=== PATIENT | male | born 1960 | race Caucasian/White ===

== ENCOUNTER 2021-11-17 18:13 | Inpatient (IN) | payer MEDICARE, SELFPAY ==
[2021-11-17] VITALS (26 sets, daily range): BP systolic 67–156; BP diastolic 37–80; PULSE 28–84; RESP 15–28; TEMP 36.5–36.8; O2SAT 79–100; BMI 47.2
--- NOTE | 2021-11-17 18:10 | ECG_ITS ---
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 Measurements Intervals [place] Rate: 50 P: 48 MN: 191 QRS: -23 QRSD: 100 T: 52 QT: 438 QTc: 402 Interpretive Statements SINUS BRADYCARDIA INDETERMINATE AXIS LOW QRS VOLTAGE IN PRECORDIAL LEADS [QRS DEFLECTION < 1.0 mV IN CHEST LEADS] PATTERN CONSISTENT WITH PULMONARY DISEASE Compared to ECG 11/17/2021 18:16:53 Indeterminate axis now present Low QRS voltage now present First degree AV block no longer present Right-axis deviation no longer present Right bundle-branch block no longer present Electronically Signed On 11-18-2021 16:28:08 CDT by Bakari Wynne M.D. [id number]
--- NOTE | 2021-11-17 18:33 | P.HP_ITS ---
Providers/Chief Complaint Admitting Physician: Feng rAtis MD History of Present Illness Byron Reilly is a 61 year old male with a past medical history of SVT, on sotalol chronic low back pain, status post surgery, spinal stenosis, on Celebrex, bilateral extremity edema on Lasix, recently metolazone was added, acute on chronic constipation, hypertension, hyperlipidemia, type 2 diabetes mellitus, no history of CAD, no history of stroke, he has a history of necrotizing fasciitis a year ago requiring debridement, no history of COVID-19, no recent history of infection, patient is from [facility], he tells me that for the last week he has been constipated, has been using [id number] milk of mag, MiraLAX to help with his constipation, but has not had a regular soft bowel movement, he has been developing bilateral lower extremity edema, fluid-filled blisters so he was on Lasix, and his primary care provider had added metolazone recently, he has been taking it regularly, denies taking any other medications, he does take Celebrex regularly for multiple joint pains, lower back pain which he takes regularly, denies any dehydration, no nausea, vomiting, lightheadedness, tells me that he hydrates well, does have bile extremity edema, no fevers, no chills, no cough, no drug use, no alcohol use. In the emergency room [facility], he was found to have a potassium of 9.2, serum sodium 128, creatinine 5.4, chloride 97, CO2 23, blood sugar level 237, BUN 96, anion gap 17, troponin less than 0.012, INR 1, hemoglobin 11.8, at that point he had received Kayexalate, I was called by ER provider, advised to give 10 units insulin, calcium gluconate, D50, and recheck potassium levels, recheck potassium levels 8.7, chloride 97, serum sodium 127, creatinine 5.4, BUN 96, EKG showed sinus bradycardia, first- degree AV bloc upon arrival, he is alert oriented x3, following all commands, normotensive, EKG showing sinus bradycardia with first-degree AV block, right axis deviation, right bundle branch block, does show peaked T waves, flattening of T waves, QRS prolongation, is at bedside. Denies chest pain, no palpitations, no shortness of breath, I have advised nurses to give him 10 units of insulin, 1 unit of D50, 2 g calcium gluconate, I have already talked to nephrology, they are seeing patient at bedside, I have also discussed with general surgery, for urgent dialysis and dialysis catheter placement for orders severe symptomatic hyperkalemia with EKG changes. 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 Patient is full code. I have also ordered repeat blood work to be ordered stat. No history of sleep apnea, review of his ABG shows a pH of 7.086, PCO2 70, PO2 70.6, no of COPD, will put on BiPAP, repeat ABG in the morning, Review of Systems Const: Denies: fever(s) Card: Reports: swelling of feet/ankles and lightheadedness; Denies: chest pain or palpitations Resp: Reports: dyspnea; Denies: productive cough GI: Reports: abdominal pain : Denies: difficulty urinating Musc: Reports: back pain PFSH Acute PFSH: Medical History (Updated 11/17/21 @ 18:46 by Feng Artis MD) Chronic narcotic dependence History of back pain History of hyperlipidemia History of necrotizing fasciitis History of obesity History of paroxysmal supraventricular tachycardia History of type 2 diabetes mellitus HTN (hypertension) with goal to be determined Surgical History (Updated 11/17/21 @ 18:41 by Feng Artis MD) History of back surgery Family History (Updated 11/17/21 @ 18:44 by Feng Artis MD) Father Diabetes Social History (Updated 11/17/21 @ 18:41 by Feng Artis MD) Smoking and tobacco status: former smoker Alcohol intake: never Substance/Drug Use: never Vitals/I&O/Wt Last Vital Signs Pulse 43 L 11/17/21 18:12 Physical Exam Const: COMMON NORMALS: no acute distress and patient oriented x3 HENMT: COMMON NORMALS: normocephalic HEAD & SCALP: normocephalic Eye: COMMON NORMALS: Equal, round and reactive pupils present and EOMs intact bilaterally Neck/C-Spine: COMMON NORMALS: no JVD Resp: COMMON NORMALS: normal respiratory effort, No retractions, No use of accessory muscles and clear to auscultation bilaterally AUSCULTATION: clear to auscultation bilaterally Cardio: COMMON NORMALS: no JVD, regular rate, regular rhythm, S1 normal heart sound present and S2 normal heart sound present RATE: regular rate RHYTHM: regular rhythm HEART SOUNDS: S1 normal heart sound present and S2 normal heart sound present GI: COMMON NORMALS: Normal to inspection, nondistended, normoactive bowel sounds present, Soft to palpation, non-tender, No hepatosplenomegaly present, no masses and no bruits PALPATION: Yes Soft to palpation and Yes No hepatosplenomegaly present Extremity: COMMON NORMALS: capillary refill normal, no clubbing, cyanosis or edema and no calf tenderness NARRATIVE EXTREMITY EXAM: 2+ pitting edema bilateral extremity Neuro: COMMON NORMALS: patient oriented x3 Psych: COMMON NORMALS: mental status grossly normal Urinary Catheter Management: Leone: Cath Placed During This Visit: yes Urinary Catheter Date of Insertion: 11/17/21 Urinary Catheter Time of Insertion: 18:15 A&P Assessment and plan (1) Acute hyperkalemia: Status: Acute (2) Hypercarbia: Status: Acute (3) Acute renal failure: Status: Acute (4) Constipation: Status: Acute Plan Acute hyperkalemia with acute renal failure -Likely secondary to Celebrex, Lasix, metolazone, dehydration, possibly mag citrate, yet with some -With acute EKG changes -Urine studies -Not responding to albuterol, calcium gluconate, insulin, D50, Kayexalate -Place Leone catheter monitor urine output -Requiring urgent dialysis -Nephrology on consult -General surgery on consult, n.p.o., dialysis catheter to be placed this evening -Continue telemetry monitoring -We will receive calcium gluconate, 1 amp of D50, 10 units IV push insulin -Cardiac echo, venous ultrasound, renal ultrasound -For severe constipation CT scan abdomen pelvis, x-ray outside facility showed ileus, possibly secondary to diuretics sinus bradycardia, with flattening of T waves, QRS prolongation, peaked T waves, second hyperkalemia, calcium gluconate x2 Hypercarbia, likely secondary to decreased mentation, obstructive sleep apnea, underlying COPD -DuoNeb treatments -BiPAP therapy -Repeat ABG in 3 hours Serial EKGs, serial troponins, cardiac echo Bilateral extremity edema, venous ultrasound, cardiac echo Full code, Protonix for GI prophylaxis, SCDs for DVT prophylaxis, Lovenox on hold and plans for surgical intervention Attestations Medical Necessity Statement*: Patient requires hospitalization, inpatient, greater than 2 midnights, for hyperkalemia, with EKG changes, acute renal failure, hypercarbia, acidosis, critical care time spent over 50 minutes Coding Level of Care Code 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
--- NOTE | 2021-11-17 18:37 | PM.CONSULT ---
Providers/Reason For Consult Consulting Physician/Specialty*: netta almeida md / telenephrology Reason for Consult*: ESMER, hyperkalemia Requesting Physician: Dr Feng Artis Attending Physician: Feng Artis MD History of Present Illness History of Present Illness Byron Reilly is a 61 year old male h/o obesity, chf, back pain, dm, necrotizing fascitis, and arrythmia. Pt has been c/o back pain on celebrex and hydrocone. he is on lasix, aldactone, and hctz for CHF- and had dose of water pills inc 1 mo ago. he has had constipation and taking miralax and other laxitives. Pt has been weaker recently. couldnt walk and today had AMS and collapsed and called 911- brought to [place], [place]- found to have hyperkalemia and ESMER. cr over 5 and k >8. Pt is bradycaric. His hyperkalemia has been treated medically and transferred to [facility] ICU for dialysis. Renal is called to consult. Review of Systems Narrative: weak, confused, shakes, tremors, oliguric, constipation, anasarca, poor appetite, SOB. Pt quit smoking 4 weeks ago Medications/Allergies home meds include celebrex, gabapentin, lasix, hctz, sotalol, miralax PFSH Acute PFSH: Medical History (Updated 11/17/21 @ 18:46 by Feng Artis MD) Chronic narcotic dependence History of back pain History of hyperlipidemia History of necrotizing fasciitis History of obesity History of paroxysmal supraventricular tachycardia History of type 2 diabetes mellitus HTN (hypertension) with goal to be determined Surgical History (Updated 11/17/21 @ 18:41 by Feng Artis MD) History of back surgery Family History (Updated 11/17/21 @ 18:44 by Feng Artis MD) Father Diabetes Social History Smoking and tobacco status: former smoker Alcohol intake: never Substance/Drug Use: never Vitals/I&O/Wt Last Vital Signs Pulse 43 L 11/17/21 18:12 BP 120/74 Physical Exam Narrative: obese, confused on nc02 heent- nc/at, eomi neck supple lungs crackles heart regm trish abd soft, distended ext b/l edema + collins neuro- confused, tremors Urinary Catheter Management: Collins: Cath Placed During This Visit: yes Urinary Catheter Date of Insertion: 11/17/21 Urinary Catheter Time of Insertion: 18:15 A&P Assessment and plan (1) Acute renal failure: 61 yr old man Obesity, DM, SVT, CHF, back pain 1. ESMER- likely from diuretics and celebrex -check renal us -ua, ur na,eos, pr, cr -check ck, c3, c4, katie, anti-dna -hep serologies -hold diuretics and celebrex review laxitives for possible phosphorus containing laxitive -as AMS, sob, bradycardic, hyperkalemia- Dr Rivas to place a dialysis access and emergency HD 3 hrs, 2k, remove 2l -informed consent for Hemodialysis and for telehealth visit obtained from pts -further w/u dependent on original lab work and response to HD assess for possible infection case discussed w/ pts , RN, and Dr Susan Artis Status: Acute Plan see above Consult Attestations Medical Necessity Statement: ESMER, hyperkalemia, bradycardia Time Spent in Patient Care: Greater than 35 minutes (>than 50% of time spent in counselling and/or direct pt care on unit). Coding Level of Care Code Acute Equal Opportunity Specialist for Luis Eduardo Kelley Diagnoses Acute renal failure N17.9
[2021-11-17 18:38] LABS: Arterial Blood Gas Hematocrit 39.4 % (42-52); Base Excess ABG -7.8 mmol/L (-2.0-2.0); Blood Gas Allen Test Pos; Blood Gas Operator Identificat BD; Blood Gas Sample Site Radial, right; Blood Gas Sample Type Arterial; HCO3 ABG 23.4 mmol/L (22-26); Oxygen Device NC; PO2 ABG 70.6 mmHg (80.0-100.0)
[2021-11-17 18:39] LABS: ABG PH Result 7.09 (7.35-7.45)
[2021-11-17] MEDS: insulin regular-human 10 UNIT in SYRINGE 1 EACH IVP ×3 (18:50→22:59)
[2021-11-17] MEDS: dextrose 50% syringe 50 mL IVP ×2 (18:57→23:23)
[2021-11-17] MEDS: haloperidol inj 5 mg/mL INJ 1 mL 1 MG IM (19:02)
[2021-11-17 19:09] LABS: Urine Appearance Clear (CLEAR); Urine Color Yellow (Yellow)
[2021-11-17 19:10] LABS: Bilirubin Urine 1+ (Negative); Blood Urine Neg (Negative); Glucose Urine UA Norm (Normal); Ketones Urine Negative (Negative); Leukocyte Esterase Urine Negative (Negative); Nitrate Urine Negative (Negative); Protein Urine Neg (Negative); Urobilinogen Urine Norm (Negative)
[2021-11-17] MEDS: dexmedeTOMIDine 0.9 % NaCL 400 MCG/100 ML PREMIX 16.24 MCG IV (19:10)
--- NOTE | 2021-11-17 19:17 | PM.CONSULT ---
Providers/Reason For Consult Consulting Physician/Specialty*: General Surgery Dr. Rivas Reason for Consult*: Dialysis access Attending Physician: Feng Artis MD History of Present Illness History of Present Illness Byron Reilly is a 61 year old male transferred from an outside facility with acute hyperkalemia and acute renal failure likely secondary to an states diuretics, dehydration and magnesium citrate that he was taking for his constipation. Patient was noted to have potassium of 9.2 at the outside facility and received multiple units of insulin with dextrose with no significant improvement. He was also showing rhythm changes and therefore was transferred here for further management. In the ICU patient was agitated and therefore decision was made for intubation. Review of Systems General: Reports: ROS unobtainable due to medical condition and ROS unobtainable due to mental status Medications/Allergies Current Medications Generic Name Dose Route Start Last Admin Trade Name Freq PRN Reason Stop Dose Admin Haloperidol Lactate 1 mg 11/17/21 18:52 11/17/21 19:02 Haloperidol Inj 5 Mg/Ml Inj 1 Ml IM 1 mg Q4H PRN Administration AGITATION PFSH Acute PFSH: Medical History Chronic narcotic dependence History of back pain History of hyperlipidemia History of necrotizing fasciitis History of obesity History of paroxysmal supraventricular tachycardia History of type 2 diabetes mellitus HTN (hypertension) with goal to be determined Surgical History History of back surgery Family History Father Diabetes Social History Smoking and tobacco status: former smoker Alcohol intake: never Substance/Drug Use: never Vitals/I&O/Wt Last Vital Signs Temp 97.7 F 11/17/21 18:13 Pulse 43 L 11/17/21 18:13 Resp 18 11/17/21 18:13 BP 122/70 11/17/21 18:13 Pulse Ox 91 11/17/21 18:12 Weight last 48 hrs Weight 358 lb Physical Exam Narrative: HEENT: Normocephalic Eye: Sclera /conjunctiva normal Abdomen: Soft to palpation Neurological: Confused and agitated Skin: Intact, no lesions appreciated on gross exam Urinary Catheter Management: Leone: Cath Placed During This Visit: yes Urinary Catheter Date of Insertion: 11/17/21 Urinary Catheter Time of Insertion: 18:15 A&P Assessment and plan (1) Acute renal failure: 61-year-old gentleman with acute hyperkalemia and acute renal failure requiring emergent dialysis. Plan for placement of temporary dialysis catheter at the bedside. Discussed with the patient's about the procedure Status: Acute (2) Poor venous access: Patient also has poor venous access and is morbidly obese and fluid overloaded. Plan for central venous access at the time of placement of dialysis catheter. 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
--- NOTE | 2021-11-17 19:17 | PC.NURSE ---
181 REcieved patient from [facility] ER via ambulance, patient awake and knows name but become uncooperative, at bedside.
--- NOTE | 2021-11-17 19:25 | XRR_ITS ---
PROCEDURE INFORMATION: Exam: XR Chest Exam date and time: 11/17/2021 8:09 PM Age: 61 years old Clinical indication: Device placement; Ett placement (vent status); Additional info: Et placement TECHNIQUE: Imaging protocol: Radiologic exam of the chest. Views: 1 view. COMPARISON: No relevant prior studies available. FINDINGS: Tubes, catheters and devices: ET tube with tip about 3.9 cm above nikia. NG tube with the tip below inferior image margin but is likely in the distal gastric lumen. Right IJ catheter and left subclavian catheter with the tips in cavoatrial region. Lungs: Cardiac silhouette size, and vascularity are somewhat accentuated, likely related to poor inspiration/expansion however clinical correlation for mild CHF should be obtained. Upper lungs are clear. Lung bases are suboptimally assessed. Left basilar linear opacity, likely atelectasis. Pleural spaces: Right CP angle is partially excluded.. No large pleural effusion. No pneumothorax. Heart/Mediastinum: As above. Bones/joints: No acute osseous findings. Other findings: 2 frontal supine views submitted. XR/XR chest 1V portable [id number] IMPRESSION: 1. Accentuated cardiac silhouette size and vascularity. See discussion above. 2. No obvious acute consolidation. Suboptimal lung base assessment. Followup including lateral view may be obtained if clinically indicated. 3. Tube/line positions as above.
[2021-11-17 19:35] LABS: INR 0.92 (0.8-1.2)
[2021-11-17 19:36] LABS: Basophils % 0.4 %; Eosinophils % 0.3 %; Hematocrit 39.7 % (42.0-52.0); Hemoglobin 12.8 g/dL (11.7-16.6); Lymphocytes % 9.9 %; Mean Corpuscular HGB Conc 32.2 g/dL (30.0-36.0); Mean Corpuscular Hemoglobin 30.4 pg (28.0-34.0); Mean Corpuscular Volume 94.3 fl (80-94); Mean Platelet Volume 12.3 fL (7.4-10.4); Monocytes # 0.7 10^3/uL (0.2-0.9); Monocytes % 6.6 %; Neutrophils # 7.96 10^3/uL (1.8-7.7); Neutrophils % 81.3 %; Nucleated Red Blood Cells % 0 %; Platelet Count 150 10^3/cmm (130-400); Red Blood Count 4.21 10^6/uL (4.1-5.3); Red Cell Distribution Width 13.5 % (12.1-15.1); White Blood Count 9.8 10^3/uL (4.0-10.0)
[2021-11-17] MEDS: atropine 0.1 mg/mL Syr 10 mL 1 MG IVP ×4 (19:38→19:48)
[2021-11-17 19:40] LABS: Lactic Sepsis W/Reflex 0.8 mmol/L (0.5-2.2)
[2021-11-17] MEDS: calcium chloride 10% Syr 10 mL 1 GM IVP ×4 (19:44→19:52)
[2021-11-17] MEDS: sodium bicarbonate 8.4% 1 mEq/mL 50mL Syr 50 MEQ IVP (19:47)
--- NOTE | 2021-11-17 19:55 | ANES.PROC ---
Anesthesia Procedures Procedure/Date: 11/17/21 Intubation: Time Out Performed: Yes Consent: requested by attending/covering physician Sedative (amount): fentanyl (100 mcg) Paralytic (amount): rocuronium (100 mg) Laryngoscope: fiber optic video scope (GLidescope Blade 4) ET Tube Uncuffed: Yes Tube Placement Confirmation: visualized tube passing through cords and confirmation by capnometry Patient Tolerated Procedure: well and no complications Intubation Complications: none Additional Comments: Propofol 200 mg, Fentanyl 100 mg, Rocuronium 100 mg
[2021-11-17 19:56] LABS: Alanine Aminotransferase 20 U/L (0-41); Albumin Level 4.5 g/dL (3.5-5.2); Alkaline Phosphatase 67 IU/L (40-130); Amylase 60 U/L (28-100); Aspartate Amino Transferase 20 U/L (0-40); Calcium 8.9 mg/dL (8.5-10.5); Carbon Dioxide 23 mmol/L (22-29); Chloride 93 mmol/L (98-107); Glomerular Filtration Rate 11.4 mL/min (90-130); Glucose 195 mg/dL (65-115); Lipase 43 U/L (13-60); Magnesium 3.9 mg/dL (1.7-2.3); Osmolality Calculated 296 mOsm/kg (285-295); Sodium 125 mmol/L (136-145); Thyroid Stimulating Hormone 1.19 uIU/mL (0.27-4.20); Total Bilirubin 0.4 mg/dL (0.15-1.2); Total Protein 7.5 g/dL (6.6-8.7)
[2021-11-17 19:58] LABS: C Reactive Protein 5.3 mg/L (0.0-4.9); Gamma Glutamyl Transferase 49 U/L (8-61); NT Pro B Type Natriuretic Pept 1269 pg/mL (0-125)
[2021-11-17] MEDS: DOPamine drip 400 MG/250 ML PREMIX 30.45 MG IV (19:58)
[2021-11-17] MEDS: propofol 1,000 MG/100 ML INJ 24.36 MG IV (20:02)
--- NOTE | 2021-11-17 20:10 | ECG_ITS ---
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 Measurements Intervals [place] Rate: 43 P: 247 ID: [id number] QRS: 256 QRSD: 139 T: 35 QT: 471 QTc: 400 Interpretive Statements SINUS BRADYCARDIA WITH FIRST DEGREE AV BLOCK RIGHT AXIS DEVIATION [QRS AXIS > 100] RIGHT BUNDLE BRANCH BLOCK [120+ ms QRS DURATION, UPRIGHT V1, 40+ ms S IN I/aVL/V4/V5/V6] No previous ECG available for comparison Electronically Signed On 11-17-2021 21:40:12 CDT by Yvette Nguyen M.D. [email or web address]/store/OM/[id number]
[2021-11-17 20:13] LABS: Blood Urea Nitrogen 99 mg/dL (8-23); Phosphorus 8.8 mg/dL (2.5-4.5); Salicylate < 0.3 mg/dL (3-10)
[2021-11-17 20:23] LABS: Estmated Average Glucose 206; Hemoglobin A1C 8.8 % (4.0-6.0)
--- NOTE | 2021-11-17 20:23 | PM.ACPR ---
Procedure/Consent Time out: Time Out Performed: Yes Consent: Consent for Procedure: Consent obtained from other (indicate) (spouse), Emergency procedure, Risks & Benefits reviewed and Agrees to proceed with procedure Procedure Narrative: Preoperative diagnosis: Acute renal failure/hyperkalemia requiring emergent dialysis Postoperative diagnosis: Same Procedure: Placement of Mahurkar catheter in the right internal jugular vein under ultrasound guidance Surgeon: Rob Anesthesia: Local Description of procedure: The patient's right neck and chest was prepped and draped in a sterile manner. An ultrasound of the right internal jugular vein revealed patent veins with no evidence of thrombus. 5 mL of 1% lidocaine was infiltrated at the site of planned entry, an introducer needle was used to access the right internal jugular vein under ultrasound guidance. Guidewire was passed through the introducer needle and the introducer needle was removed. Serial dilators were passed over the guidewire after the skin incision was extended using 11 blade and Mahurkar catheter was then passed over the guidewire and the guidewire was removed. The catheter was sutured to the skin using 2-0 Ethilon suture. Sterile dressings were applied. Postop procedure chest x-ray showed no evidence of pneumothorax and good positioning of the catheter. Acute Procedures Epistaxis Control: Time out performed: Yes
--- NOTE | 2021-11-17 20:24 | PM.ACPR ---
Procedure/Consent Time out: Time Out Performed: Yes Consent: Consent for Procedure: Consent obtained from other (indicate) (Spouse), Emergency procedure, Risks & Benefits reviewed and Agrees to proceed with procedure Procedure Narrative: Preoperative diagnosis: Poor IV access requiring central venous access for medications Preoperative diagnosis: Poor IV access requiring central venous access for medications Procedure: Placement of 7 Bruneian triple-lumen catheter in the left subclavian vein Anesthesia: Local Surgeon: Dr. Rivas Description of procedure: The patient's right chest was prepped and draped in a sterile manner. 10 mL of 1% lidocaine was infiltrated under the subclavian vein on the left side at the site of planned entry. An introducer needle was used to access the right subclavian vein, a guidewire passed through the introducer needle and the needle was removed. Using 11 blade, a skin incision was made at the guidewire entry site. Dilator was passed over the guidewire and a 7 Bruneian triple-lumen central venous catheter was passed over the guidewire and the guidewire was removed. The catheter was sutured to the skin at 15 cm. All 3 ports pam blood and flushed easily. Postprocedure chest x-ray confirmed good position of the catheter. Acute Procedures Epistaxis Control: Time out performed: Yes
[2021-11-17 20:45] LABS: Hepatitis B Surface AB 3.5 (11.5-1000); Hepatitis B Surface Antigen Non-Reactive (Nonreactive); Hepatitis C Virus Antibody Non-Reactive (Nonreactive)
[2021-11-17 20:54] LABS: Troponin(5th) Baseline 33 ng/L (0-15)
[2021-11-17 20:57] LABS: Alanine Aminotransferase 20 U/L (0-41); Albumin Level 3.9 g/dL (3.5-5.2); Alkaline Phosphatase 65 IU/L (40-130); Calcium 11.4 mg/dL (8.5-10.5); Carbon Dioxide 20 mmol/L (22-29); Chloride 93 mmol/L (98-107); Globulin 2.9 g/dL (1.3-4.6); Glomerular Filtration Rate 11.4 mL/min (90-130); Glucose 302 mg/dL (65-115); Osmolality Calculated 299 mOsm/kg (285-295); Sodium 124 mmol/L (136-145); Total Bilirubin 0.3 mg/dL (0.15-1.2); Total Protein 6.8 g/dL (6.6-8.7)
[2021-11-17 21:14] LABS: Aspartate Amino Transferase 20 U/L (0-40)
[2021-11-17 21:15] LABS: Anion Gap 19.4 (5-19); Blood Urea Nitrogen 95 mg/dL (8-23); Potassium 8.4 mmol/L (3.5-5.1)
[2021-11-17 21:16] LABS: Uric Acid 8.3 mg/dL (3.4-7.0)
[2021-11-17] MEDS: propofol 1,000 MG/100 ML INJ 48.72 MG IV (21:29)
[2021-11-17 21:50] LABS: Glucose Point of Care 283 mg/dL (70-110)
[2021-11-17 21:50] LABS: Glucose Point of Care 224 mg/dL (70-110)
[2021-11-17 21:50] LABS: Glucose Point of Care 254 mg/dL (70-110)
[2021-11-17 22:25] LABS: Amphetamines Screen Urine Negative (Negative); Barbiturates Screen Urine Negative (Negative); Benzodiazepines Screen Urine Negative (Negative); Cocaine Screen Urine Negative (Negative); Opiate Screen Urine Positive (Negative); PCP Screen Urine Negative (Negative); THC Screen Urine Negative (Negative)
[2021-11-17 22:29] LABS: Troponin 5 2HR 27.84 ng/L (0-15)
[2021-11-17 22:30] LABS: Troponin 5 2HR Delta -5.16 ABS# (0-10)
[2021-11-17 22:38] LABS: Potassium, Radom Urine 42 mmol/L; Urine Random Sodium 38 mmol/L
[2021-11-17 22:43] LABS: Calcium Urine Random 2.4 mg/dL; Creatinine Urine, Random 142 mg/dL (39-259); Urea Nitrogen,Urine Random 524 mg/dL; Urine Protein Random 25 mg/dL; Urine Random Chloride 15 mmol/L
[2021-11-17 22:48] LABS: Bacteria Urine TRACE /hpf; RBC Urine 0-4 /hpf (0-2); Squamous Epithelial Cell Urine 0-4 /hpf (0-5); WBC Urine 0-4 /hpf (0-5)
[2021-11-17] MEDS: rocuronium 10 mg/mL INJ 5mL IVP (23:22)
[2021-11-17] MEDS: midazolam 1 mg/mL INJ 2 mL 2 MG (23:24)
[2021-11-17] MEDS: midazolam 1 mg/mL INJ 5 ML 2 MG IV (23:25)
[2021-11-17] MEDS: pantoprazole 40 mg SDV IVP (23:32)
[2021-11-17] MEDS: heparin, porcine 1,000 unit/mL INJ 10 mL 10000 UNIT HE (23:54)
[2021-11-17] MEDS: dextrose 10% 1,000 ML 50 ML IV (23:56)
[2021-11-18] VITALS (63 sets, daily range): BP systolic 96–178; BP diastolic 45–81; PULSE 56–79; RESP 16–20; TEMP 37.4–38.1; O2SAT 92–100
[2021-11-18] MEDS: propofol 1,000 MG/100 ML INJ 48.72 MG IV ×2 (00:08→12:30)
--- NOTE | 2021-11-18 00:10 | ECG_ITS ---
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 Measurements Intervals [place] Rate: 63 P: 75 GA: 204 QRS: -35 QRSD: 97 T: 43 QT: 413 QTc: 425 Interpretive Statements SINUS RHYTHM INDETERMINATE AXIS LOW QRS VOLTAGE IN PRECORDIAL LEADS [QRS DEFLECTION < 1.0 mV IN CHEST LEADS] PATTERN CONSISTENT WITH PULMONARY DISEASE INCOMPLETE RIGHT BUNDLE BRANCH BLOCK [90+ ms QRS DURATION, TERMINAL R IN V1/V2, 40+ ms S IN I/aVL/V4/V5/V6] Compared to ECG 11/17/2021 22:43:59 Incomplete right bundle-branch block now present Sinus bradycardia no longer present Electronically Signed On 11-18-2021 16:32:33 CDT by Bakari Wynne M.D. [id number]
[2021-11-18] MEDS: sodium polystyrene sulfonate 15 gm/60 mL Btl PO (00:57)
[2021-11-18 01:02] LABS: ABG PH Result 7.24 (7.35-7.45); Alveolar-Arterial Oxygen Gradi 72.9 mmHg (5-10); Arterial Blood Gas Hematocrit 40.5 % (42-52); Base Excess ABG -3.8 mmol/L (-2.0-2.0); Blood Gas Allen Test Pos; Blood Gas Operator Identificat JB; Blood Gas Sample Site Radial, right; Blood Gas Sample Type Arterial; Carboxyhemoglobin 0.9 %THgb (0.4-20.1); HCO3 ABG 24.6 mmol/L (22-26); HGB O2 Sat 93.5 % (95-100); Ionized Calcium Level - ABG 1.3 mmol/L (1.1-1.4); Methemoglobin 1.2 % (0.4-1.5); Oxygen Device VENT; Oxygen Saturation ABG 95.5; PO2 ABG 80.3 mmHg (80.0-100.0); Total Hemoglobin 13.2 g/dL (14-18)
[2021-11-18 02:07] LABS: Basophils % 0.3 %; Eosinophils % 0.2 %; Hematocrit 38.5 % (42.0-52.0); Hemoglobin 12.3 g/dL (11.7-16.6); Lymphocytes % 9.7 %; Mean Corpuscular HGB Conc 31.9 g/dL (30.0-36.0); Mean Corpuscular Hemoglobin 30.4 pg (28.0-34.0); Mean Corpuscular Volume 95.1 fl (80-94); Mean Platelet Volume 11.7 fL (7.4-10.4); Monocytes # 0.8 10^3/uL (0.2-0.9); Monocytes % 7.6 %; Neutrophils # 8.69 10^3/uL (1.8-7.7); Neutrophils % 81.4 %; Nucleated Red Blood Cells % 0 %; Platelet Count 130 10^3/cmm (130-400); Red Blood Count 4.05 10^6/uL (4.1-5.3); Red Cell Distribution Width 13.2 % (12.1-15.1); White Blood Count 10.7 10^3/uL (4.0-10.0)
[2021-11-18 02:26] LABS: Calcium 9.5 mg/dL (8.5-10.5)
[2021-11-18 02:27] LABS: Alanine Aminotransferase 16 U/L (0-41); Albumin Level 3.9 g/dL (3.5-5.2); Alkaline Phosphatase 66 IU/L (40-130); Blood Urea Nitrogen 65 mg/dL (8-23); Calcium 9.7 mg/dL (8.5-10.5); Carbon Dioxide 24 mmol/L (22-29); Chloride 94 mmol/L (98-107); Glucose 148 mg/dL (65-115); Osmolality Calculated 291 mOsm/kg (285-295); Phosphorus 5.6 mg/dL (2.5-4.5); Sodium 130 mmol/L (136-145); Total Bilirubin 0.6 mg/dL (0.15-1.2); Total Protein 6.9 g/dL (6.6-8.7); Troponin 5 6HR 33.32 ng/L (0-15)
[2021-11-18 02:28] LABS: Anion Gap 18.3 (5-19); Aspartate Amino Transferase 16 U/L (0-40); Potassium 6.3 mmol/L (3.5-5.1); Troponin 5 6HR Delta 0.32 ng/L (0-12)
[2021-11-18] MEDS: chlorhexidine gluconate 4% Btl 118 mL 1 APPLIC TOPICAL (02:42)
[2021-11-18 02:43] LABS: Glucose Point of Care 142 mg/dL (70-110)
[2021-11-18] MEDS: propofol 1,000 MG/100 ML INJ 29.23 MG IV ×3 (03:20→09:36)
[2021-11-18] MEDS: DOPamine drip 400 MG/250 ML PREMIX 30.45 MG IV (03:45)
[2021-11-18 04:28] LABS: Glucose Point of Care 159 mg/dL (70-110)
[2021-11-18 04:28] LABS: Glucose Point of Care 174 mg/dL (70-110)
[2021-11-18 04:28] LABS: Glucose Point of Care 162 mg/dL (70-110)
[2021-11-18 05:31] LABS: ABG PCO2 45.1 mmHg (35-45); ABG PH Result 7.36 (7.35-7.45); Alveolar-Arterial Oxygen Gradi 1.4 mmHg (5-10); Arterial Blood Gas Hematocrit 38.7 % (42-52); Base Excess ABG -0.4 mmol/L (-2.0-2.0); Blood Gas Allen Test Pos; Blood Gas Sample Site Radial, right; Blood Gas Sample Type Arterial; Carboxyhemoglobin 0.7 %THgb (0.4-20.1); HCO3 ABG 25.4 mmol/L (22-26); HGB O2 Sat 95.3 % (95-100); Ionized Calcium Level - ABG 1.3 mmol/L (1.1-1.4); PO2 ABG 82.9 mmHg (80.0-100.0); Potassium Level - ABG 5.1 mmol/L (3.5-5.0); Total Hemoglobin 12.6 g/dL (14-18)
[2021-11-18] MEDS: perflutren protein-a microsphr 0.22 mg/mL SDV 3 mL IV (05:40)
[2021-11-18 05:45] LABS: Glucose Point of Care 148 mg/dL (70-110)
--- NOTE | 2021-11-18 06:13 | PC.NURSE ---
Dr. Artis at patient bedside 10/18/21 at 1845 to discuss plan of care with patient and . Patient was agitated and having difficulty laying down. Dr. Rivas came to bedside to place temporary dialysis port and central line. Patient was short of breath and anxious. Dr. Artis ordered to intubate patient to assist in placement of dialysis port and central line. Patient was intubated approx 192. Patient became bradycardic with heart rate in low 20's at 1937. ACLS initiated. Pacer pads placed on patient pacing patient. Dr. Artis and house cleaner notified of rapid decline. First dose Atropine given 1947. Dr. Artis at bedside 1943. Verbal orders for calcium chloride, atropine, bicarb, dipamine, levophed, propofol, fentanyl, versed, regular insulin, and d50. See mar for medication administration details. Patient had a pulse and blood pressure through the duration of rapid. Pacer turned off at 2030 with hear rate sustaining mid 50's to low 60's. For further information, refer to code sheet in paper chart.
[2021-11-18 06:22] LABS: Glucose Point of Care 160 mg/dL (70-110)
--- NOTE | 2021-11-18 06:46 | P.PN_ITS ---
Subjective Subjective: overnight events noted. remains intubated. Medications: Reviewed: Yes Medication Review Details: Current Medications Acetaminophen (Acetaminophen 325 Mg Tablet) 650 mg PO Q6H PRN PRN Reason: Mild/Mod Pain Or Temp >/= 101 Chlorhexidine Gluconate (Chlorhexidine Gluconate 4% Btl 118 Ml) 1 applic TOPICAL 0100 JANIS Last Admin: 11/18/21 02:42 Dose: 1 applic Dextrose (Dextrose 50% Syringe 50 Ml) 25 ml IVP ONCE PRN; Protocol PRN Reason: hypoglycemia protocol Dextrose (Dextrose 50% Syringe 50 Ml) 50 ml IVP PRN PRN; Protocol PRN Reason: hypoglycemia protocol Glucagon (Glucagon 1 Mg/Ml Inj 1 Ml) 1 mg IM ONCE PRN; Protocol PRN Reason: Adult Acute Hypoglycemia Prot. Haloperidol Lactate (Haloperidol Inj 5 Mg/Ml Inj 1 Ml) 1 mg IM Q4H PRN PRN Reason: AGITATION Last Admin: 11/17/21 19:02 Dose: 1 mg calcium gluconate 0.9% NaCL (Calcium Gluconate 0.9% Nacl) 1 gm in 50 mls @ 100 mls/hr IV Q30MIN JANIS Stop: 11/18/21 18:44 Dextrose (D5w) 500 mls @ 100 mls/hr IV ONCE PRN; Protocol PRN Reason: Adult Acute Hypoglycemia Prot dexmedeTOMIDine 0.9 % NaCL (Precedex) 400 mcg in 100 mls @ 0 mls/hr IV .Q0M JANIS; Protocol Last Titration: 11/17/21 19:30 Dose: 0 mcg/kg/hr, 0 mls/hr Fentanyl 1,000 mcg/ Sodium (Chloride) 100 mls @ 0 mls/hr IV .Q0M JANIS; Protocol Last Admin: 11/18/21 02:52 Dose: 75 mcg/hr, 7.5 mls/hr Propofol (Diprivan) 1,000 mg in 100 mls @ 0 mls/hr IV .Q0M JANIS; Protocol Last Admin: 11/18/21 06:20 Dose: 30 mcg/kg/min, 29.23 mls/hr Norepinephrine Bitartrate 4 mg (/ Dextrose) 254 mls @ 0 mls/hr IV .Q0M JANIS; Protocol Last Titration: 11/17/21 20:05 Dose: 0 mcg/min, 0 mls/hr Dextrose (D10w) 1,000 mls @ 50 mls/hr IV .Q20H JANIS Last Infusion: 11/18/21 00:00 Dose: 0 mls/hr Midazolam HCl 100 mg/ Sodium (Chloride) 100 mls @ 0 mls/hr IV .Q0M JANIS; P rotocol Last Titration: 11/17/21 23:50 Dose: 2 mg/hr, 2 mls/hr Dopamine HCl/Dextrose (Intropin Drip) 400 mg in 250 mls @ 30.447 mls/hr IV CONT JANIS; Protocol Last Admin: 11/18/21 03:45 Dose: 5 mcg/kg/min, 30.45 mls/hr Insulin Human Lispro (Insulin Lispro 100 Unit/1 Ml) 0 unit SUBCUT TIDWM JANIS; Protocol Morphine Sulfate (Morphine 4 Mg/Ml Sdv 1 Ml) 2 mg IVP Q4H PRN PRN Reason: SEVERE PAIN Naloxone HCl (Naloxone 0.4 Mg/Ml Sdv) 0.1 mg IVP Q2M PRN PRN Reason: OPIATERV Ondansetron HCl (Ondansetron 2 Mg/Ml Sdv 2 Ml) 4 mg IVP Q8H PRN PRN Reason: vomiting, or N/V if npo Pantoprazole Sodium (Pantoprazole 40 Mg Sdv) 40 mg IVP Q24H [facility] Last Admin: 11/17/21 23:32 Dose: 40 mg Vitals/I&O/Wt Last Vital Signs Temp 98.2 F 11/17/21 22:30 Pulse 61 11/18/21 05:36 Resp 18 11/18/21 05:00 BP 151/72 11/18/21 04:45 Pulse Ox 97 11/18/21 05:21 O2 Del Method 11/18/21 05:21 O2 Flow Rate 6 11/17/21 18:12 FiO2 100 11/18/21 05:21 11/17/21 11/17/21 11/18/21 14:59 22:59 06:59 Intake Total 118.488 / 118.488 626.758 / 745.246 Output Total 2049 Balance 118.488 / 118.488 -1423.242 / -1304.754 Weight last 48 hrs Weight 162.386 kg Physical Exam Narrative: obese, intubated - fio2=90%/ RR18/ ASCENCION 10/ TV 500 heent- nc/at, eomi neck supple, rt sided dialysis catheter lungs crackles heart reg, +YASMINE abd soft, distended, low BS ext b/l edema + collins neuro- sedated Urinary Catheter Management: Collins: Cath Placed During This Visit: yes Reason for Continuing Indwelling Catheter: Accurate Measurement of Urinary Output in Critically Ill Patients Urinary Catheter Date of Insertion: 11/17/21 Urinary Catheter Time of Insertion: 18:15 Data : 11/18/21 01:30 11/18/21 01:30 Micro: Microbiology 11/17/21 21:32 Blood Culture - Preliminary Blood SPECIMEN COLLECTED 11/17/21 21:28 Blood Culture - Preliminary Blood SPECIMEN COLLECTED A&P Assessment and plan (1) Acute renal failure: 61 yr old man Obesity, DM, SVT, CHF, back pain 1. s/p intubattion and cardiac arrest- s/p HD- off pressors -await echo 2. ESMER- likely from diuretics and celebrex -check renal us -pending -ua -negative ur na 38 -ur eos, pr, cr pensing -check ck, c3, c4, katie, anti-dna -hep serologies -hold diuretics and celebrex review laxatives for possible phosphorus containing laxative -s/p emergent HD last night - Dr Rivas placed a right IJ dialysis access -repeat HD this morning - HD 3 hrs, 2k, remove 3 l -informed consent for Hemodialysis and for telehealth visit obtained from pts 3. resp acidosis- improved w/ ventilator 4 . hyponatremia from ESMER- monitor w/ dialysis 5 . DM care per medicine 6 . hypercalcemia- can be from med treatment given to him to treat his hyperkalemia- will monitor -pth and vit d levels are pending -further w/u dependent on original lab work and response to HD case discussed w/ NEONATAL NURSE -seen and examined w/ electronic systems security assessment- telehealth visit time spent >30 min Status: Acute Plan see above Attestations Medical Necessity Statement*: esmer, hyperkalemia, VDRF Time Spent in Patient Care: 16 - 35 minutes (>than 50% of time spent in counselling and/or direct pt care on unit) . 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
--- NOTE | 2021-11-18 07:00 | XR_ITS ---
WS: [id number] Exam: XR chest 1V portable [id number] Date/Time of Exam: 11/18/2021 7:29 AM Reason For Exam: sob Comparison 11/17/2021. The lungs are fully expanded. No consolidating infiltrates. Heart size is within normal limits. Media stinal contours are normal. An ET tube is in place ending about 4 cm above the nikia in good positio n. A left-sided subclavian central line is noted and appears to end in the lower one third of the SVC . Right-sided IJ catheter also noted. The tip probably in the region of the lower one third of the IV C. Enteric tube looped in the stomach but the tip is not visible. Additional monitoring leads superim pose the chest. Bony structures are intact. No pleural effusion seen. XR/XR chest 1V portable [id number] IMPRESSION: 1. No acute process identified and very little change since previous exam. 2. ET tube and left-sided central line both appear to be in satisfactory locati on. Enteric tube looped in the stomach but the tip is not visible. Right IJ cat heter identified probably ending in the lower one third of the SVC.
[2021-11-18 08:09] LABS: Glucose Point of Care 154 mg/dL (70-110)
[2021-11-18] MEDS: insulin lispro 100 unit/1 mL SUBCUT ×2 (08:16→13:00)
--- NOTE | 2021-11-18 09:17 | XR_ITS ---
WS: [id number] Exam: XR KUB portable [id number] Date/Time of Exam: 11/18/2021 9:35 AM Reason For Exam: urine output No bowel obstruction or free air. An enteric tube is looped in the body the stomach. There is moderat e gaseous distention of the colon with retained stool. Organ margins are obscured. Fusion hardware in the lumbosacral spine. XR/XR KUB portable [id number] IMPRESSION: 1. Moderate gaseous dilatation the colon with retained stool. 2. No acute process noted at this time. 3. Enteric tube in satisfactory position in the body the stomach.
[2021-11-18] MEDS: heparin, porcine 1,000 unit/mL INJ 10 mL 10000 UNIT HE ×2 (10:06→10:47)
--- NOTE | 2021-11-18 10:20 | PC.CHAP ---
Pastoral Care Encounter/Spiritual Assessment Type of Contact [] Declined web sizer visit [] Patient/Family/Request visit [] Outpatient visit [] Follow-up visit [] Physician referral [] Code/Alert [x] Routine visit [] Staff referral [] Actively dying [] Patient sleeping [x] Family support [] [] Out of room [] Palliative care [] [] Receiving care in room [] Pre-surgical visit [] Trauma [] Long length of stay [x] ICU visit [x] Other: dialysis Relational/Emotional Strength [] Patient feels connected with others/family/visitors/staff [] Distress [] Loneliness/isolation [] Abandonment Spirituality of Patient [] Person of Merline [] Attends Holiness of their Merline [] Believes in Prayer [] Reads Bible or Jain materials [] There are Spiritual issues to be addressed 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] Prayer [] Active listening [] Non-anxious presence [] Spiritual/emotional support [] Crisis/trauma care [] Spiritual counseling [] Bereavement support [] Provided bereavement packet [] Provided Bible/devotional materials [] Provided toy/stuffed animal, coloring book to patient or family member [] Provided Communion [] Anointing/[place] [] Salvation [x] Completed spiritual assessment [] Other: Impact on Illness or Injury [] Angry [] Fearful [] Anxious [] Often cries [] Exhaustion [] Unable to work [] Unable to attend rastafari [] Unable to walk/stand [] Unable to read [] Unable to drive [] Unable to eat/drink [] Unable to sleep [] Unable to be with family [] Patient intubated [] Other: Summary Time spent with patient
[2021-11-18 10:29] LABS: Glucose Point of Care 136 mg/dL (70-110)
[2021-11-18 12:01] LABS: Glucose Point of Care 159 mg/dL (70-110)
[2021-11-18] MEDS: DOPamine drip 400 MG/250 ML PREMIX 18.27 MG IV (12:10)
[2021-11-18 12:18] LABS: Eosinophil Urine No Eosinophils Seen
[2021-11-18] MEDS: ipratropium-albuterol 3 mL Neb INHALATION ×4 (12:41→23:43)
[2021-11-18 13:35] LABS: Parathyroid Hormone 48.2 pg/mL (15-65)
[2021-11-18 13:41] LABS: Glucose Point of Care 185 mg/dL (70-110)
[2021-11-18 14:20] LABS: Ferritin 368 ng/mL (30-400); Total Iron Binding Capacity 338 mcg/dl; Unsaturated Iron Binding 149 ug/dL (112-347)
[2021-11-18] MEDS: propofol 1,000 MG/100 ML INJ 38.97 MG IV ×4 (14:22→22:21)
[2021-11-18 14:24] LABS: Iron 189 ug/dL (59-158); Percent Saturation 55.9 % (20-50)
[2021-11-18 14:34] LABS: 25 Hydroxy Vitamin D 29 ng/mL (30-100)
[2021-11-18 15:45] LABS: Anion Gap 14.4 (5-19); Blood Urea Nitrogen 39 mg/dL (8-23); Carbon Dioxide 27 mmol/L (22-29); Chloride 96 mmol/L (98-107); Glomerular Filtration Rate 23.2 mL/min (90-130); Glucose 182 mg/dL (65-115); Osmolality Calculated 288 mOsm/kg (285-295); Potassium 5.4 mmol/L (3.5-5.1); Sodium 132 mmol/L (136-145)
--- NOTE | 2021-11-18 16:07 | PM.PN ---
Subjective Subjective: - Patient was seen this morning, he received dialysis yesterday evening -Was seen this morning, family at bedside, he does awaken, currently on fentanyl, propofol for sedation, Versed was turned off -Remains on minimal dopamine, currently plans on dialysis today -Patient was seen early this morning as his blood pressures dropped during dialysis, he was started on 10 of Levophed, blood pressures have significantly improved MAP greater than 65, currently tolerating dialysis, family at bedside, remains on Versed, fentanyl, propofol for sedation, 90% FiO2 -Patient was reexamined early this afternoon, at bedside, I in detail discussed the events of yesterday, she voiced understanding, all questions answered, advised the plan is for weaning his oxygen requirements, continuing dialysis, monitor urine output, monitor for complications, monitor for infection, neurochecks, -Plan is on spontaneous breathing trial tomorrow if his oxygen requirements improve will consider Lasix this afternoon Vitals/I&O/Wt Last Vital Signs Temp 99.7 F H 11/18/21 12:00 Pulse 63 11/18/21 15:51 Resp 18 11/18/21 15:51 BP 114/62 11/18/21 12:00 Pulse Ox 95 11/18/21 15:51 O2 Del Method 11/18/21 15:51 O2 Flow Rate 6 11/17/21 18:12 FiO2 60 11/18/21 15:51 11/18/21 11/18/21 11/18/21 06:59 14:59 22:59 Intake Total 626.758 / 745.246 851.034 / 851.034 Output Total 2049 / 2049 900 / 900 Balance -1423.242 / -1304.754 -48.966 / -48.966 Weight last 48 hrs Weight 162.386 kg Physical Exam Const: COMMON NORMALS: no acute distress OTHER: Remains in debated, sedated Pupils pinpoint, minimally reactive to light Endotracheal tube in place Has a right dialysis catheter in place Has a left central line in place OG tube in place Leone catheter in place Resp: COMMON NORMALS: normal respiratory effort, No retractions, No use of accessory muscles and clear to auscultation bilaterally AUSCULTATION: clear to auscultation bilaterally Cardio: COMMON NORMALS: regular rate, regular rhythm, S1 normal heart sound present and S2 normal heart sound present RATE: regular rate RHYTHM: regular rhythm HEART SOUNDS: S1 normal heart sound present and S2 normal heart sound present GI: OTHER: Abdomen soft, slight lightly distended, decreased bowel sounds, Back/Pelvis: OTHER: 1+ pitting edema bilateral lower extremity Urinary Catheter Management: Leone: Cath Placed During This Visit: yes Reason for Continuing Indwelling Catheter: Accurate Measurement of Urinary Output in Critically Ill Patients Urinary Catheter Date of Insertion: 11/17/21 Urinary Catheter Time of Insertion: 18:15 Data : 11/18/21 01:30 11/18/21 15:00 Micro: Microbiology 11/18/21 07:49 Gram Stain - Final Sputum - Endotracheal Tube Aspirate 11/17/21 21:32 Blood Culture - Preliminary Blood SPECIMEN COLLECTED 11/17/21 21:28 Blood Culture - Preliminary Blood SPECIMEN COLLECTED A&P Assessment and plan (1) Sinus bradycardia: Status: Acute (2) Ileus: Status: Acute (3) Poor venous access: Status: Acute (4) Constipation: Status: Acute (5) Acute renal failure: Status: Acute (6) Hypercarbia: Status: Acute (7) Acute hyperkalemia: Status: Acute (8) Acute and chronic respiratory failure with hypoxia: Status: Acute (9) Shock: Status: Acute (10) Acute exacerbation of CHF (congestive heart failure): Status: Acute Plan Acute hypoxic hypercarbic respiratory failure -Patient's sudden decompensation yesterday evening, likely a component of hypercarbia, acute encephalopathy, possible aspiration, acute flash pulmonary edema acute diastolic CHF exacerbation Plan -Continue intubation, mechanical ventilation, minimize FiO2, tidal volume -Propofol, fentanyl for sedation, Versed if needed -Spontaneous breathing trial tomorrow -Continue broad-spectrum biotic therapy -Follow blood cultures, sputum cultures, monitor for fevers -Continue dialysis for fluid overload -We will consider Lasix -Keep n.p.o. -Lovenox for DVT prophylaxis -Protonix for GI prophylaxis -Status stable, prognosis is guarded -We will CT the chest once more stable Sinus bradycardia, with shock -Heart rates as low as 20s, blood pressure 60s over 40s -Secondary to acute hyperkalemia -Yesterday evening -He never lost his pulse, he never lost a blood pressure -Status post 3 g of atropine, requiring up to 20 of Levophed, currently down to 10 during dialysis dopamine titrating down, external pacing currently off, treatment of hyperkalemia as below -Continues to have sinus bradycardia, P waves present, no QRS prolongation, peak T waves still present -Continue telemetry monitoring -Continue cardiac echo -I have consulted cardiology -Currently no need for pacemaker placement, external pacing, hemodynamically stable Shock -Likely secondary to sedating medication, dialysis -Wean off dopamine -Levophed as needed Acute hyperkalemia -Likely secondary to acute renal failure -With sinus bradycardia, flattening of T waves, peaked T waves, QRS prolongation, EKG changes -Status post 3 doses of 1 g calcium chloride, 20 units IV push insulin with D50, sodium bicarb, Kayexalate, Xopenex -Currently responsive to dialysis -Potassium 5.4 Acute renal failure as above, secondary to Celebrex, diuretic therapy Morbid obesity, intubation as above Type 2 diabetes mellitus, A1c 8.8, continue low-dose sliding scale Evidence of ileus, significant constipation, keep n.p.o., will consider CT scan abdomen pelvis once more stable Attestations Medical Necessity Statement*: Patient requires hospitalization, inpatient, greater than 2 midnights, for hyperkalemia, acute renal failure requiring dialysis, hypercarbia, acute hypoxic respiratory failure, critical care care time spent over 50 minutes Coding Level of Care Code Acute Butter Melter for Chg Fwd Diagnoses Sinus bradycardia R00.1 Ileus K56.7 Poor venous access I87.8 Constipation K59.00 Acute renal failure N17.9 Hypercarbia R06.89 Acute hyperkalemia E87.5 Acute and chronic respiratory failure with hypoxia J96.21 Shock R57.9 Acute exacerbation of CHF (congestive heart failure) I50.9
--- NOTE | 2021-11-18 16:14 | PC.NURSE ---
Levophed: Levo running at 6mcg/min. Unable to titrate in MAR at this time. Pharmacy is aware.
[2021-11-18] MEDS: enoxaparin 40 mg/0.4 mL Syringe SUBCUT (16:43)
[2021-11-18] MEDS: pantoprazole 40 mg SDV IVP (16:52)
--- NOTE | 2021-11-18 17:00 | P.CONIM_ITS ---
Providers/Reason For Consult Consulting Physician/Specialty*: JOSHUA Quintero MD/ Cardiology Reason for Consult*: Patient is a bradycardia/hypotension/renal failure Requesting Physician: Dr. Artis Attending Physician: Feng Artis MD History of Present Illness History of Present Illness Byron Reilly is a 61 year old male who is transferred to [facility] from an outside hospital where he presented with complaints of severe abdominal pain and generalized weakness. He was found to be in acute renal failure with hyperkalemia. The potassium level was around 9.3. He was found to have episode s of sinus bradycardia and junctional rhythm. His heart rate one time went down into the 20s. He was hypotensive and hypercapnic. He was placed on vasopressors and is intubated. Cardiology consult is requested because of bradycardia. This patient is currently intubated. Most information is from the and also the medical records. He has a history of atrial fibrillation/SVT. He underwent elective cardioversion more than 5 years ago at the [facility] by Dr. Vega. He has been taking sotalol since then?. Because of his easy bruising, he is not on any oral anticoagulant. He also had a stress test and angiogram within the last 5 years. He was told to have no blockages. For the last 20 weeks, the patient has been having problems with the constipatio n. He was taking MiraLAX multiple times a day. He was seen by the primary care provider on Tuesday for the stomach pain and hip pain. He was prescribed some pain medication. Apparently his symptoms got worse on Tuesday. He was having severe abdominal cramps and pains. For that reason, he was brought to [facility]. He did not have any fever or chills. No cough. No orthopnea PND. No other specific complaints. Patient's blood test in the [facility] revealed features of acute renal failure. He also was found to be somewhat lethargic. He is transferred to our facility for further evaluation management. Review of Systems Narrative: CONSTITUTIONAL: No fever or chills. [] EYES: No blurring of vision or other visual disturbances lately. ENT: No hoarseness of voice, auditory disturbances or sore throat. CARDIOVASCULAR: As mentioned above. RESPIRATORY: No significant cough. GASTROINTESTINAL: As mentioned above Angel home vomiting present under MAC monitor on the leno in a.m. GENITOURINARY: No dysuria or hematuria. INTEGUMENTARY: History of easy bruising and venous stasis in the lower extremities. History of necrotizing fasciitis involving the groin area, last year NEURO: No transient ischemic attacks or amaurosis. PSYCHIATRIC: No history of psychosis or major depression. HEMATOLOGIC: No bleeding disorders or significant anemia. ENDOCRINE: History of type 2 diabetes MUSCULOSKELETAL: No recent joint pain or swelling. ALLERGY/IMMUNOLOGY: As mentioned above. Medications/Allergies Home Medications Medication Instructions Recorded Confirmed Last Taken Type atorvastatin 20 mg tablet 20 mg PO QPM 11/18/21 11/18/21 Unknown History celecoxib 200 mg capsule 200 mg PO BID 11/18/21 11/18/21 Unknown History diphenhydramine HCl 25 mg tablet 25 mg PO DAILY 11/18/21 11/18/21 Unknown History furosemide 40 mg tablet 40 mg PO DAILY 11/18/21 11/18/21 Unknown History gabapentin 300 mg capsule 300 mg PO QID 11/18/21 11/18/21 Unknown History glipizide 5 mg tablet 5 mg PO BID 11/18/21 11/18/21 Unknown History hydrochlorothiazide 12.5 mg tablet 12.5 mg PO DAILY 11/18/21 11/18/21 Unknown History hydrocodone 10 mg-acetaminophen 2 tab PO Q8H 11/18/21 11/18/21 Unknown History 325 mg tablet lisinopril 10 mg tablet 10 mg PO DAILY 11/18/21 11/18/21 Unknown History montelukast 10 mg tablet 10 mg PO DAILY 11/18/21 11/18/21 Unknown History omega-3 fatty acids 1,000 mg PO DAILY 11/18/21 11/18/21 Unknown History polyethylene glycol 3350 17 gram 17 g PO DAILY 11/18/21 11/18/21 Unknown History oral powder packet sotalol 80 mg tablet 80 mg PO BID 11/18/21 11/18/21 Unknown History spironolactone 25 mg tablet 25 mg PO DAILY 11/18/21 11/18/21 Unknown History tamsulosin 0.4 mg capsule 0.4 mg PO DAILY 11/18/21 11/18/21 Unknown History triamcinolone acetonide 0.025 % 1 applic topical TID 11/18/21 11/18/21 Unknown History topical ointment Allergies Allergy/AdvReac Type Severity Reaction Status Date / Time No Known Allergies Allergy Verified 11/17/21 19:27 Current Medications Generic Name Dose Route Start Last Admin Trade Name Freq PRN Reason Stop Dose Admin Albuterol/Ipratropium 3 ml 11/18/21 12:30 11/18/21 15:50 Ipratropium-Albuterol 3 Ml Neb INHALATION 3 ml Q4H.RESPIRATORY JANIS Administration Chlorhexidine Gluconate 1 applic 11/18/21 01:00 11/18/21 02:42 Chlorhexidine Gluconate 4% Btl 118 Ml TOPICAL 1 applic 0100 JANIS Administration Enoxaparin Sodium 40 mg 11/18/21 17:00 11/18/21 16:43 Enoxaparin 40 Mg/0.4 Ml Syringe SUBCUT 40 mg Q24H JANIS Administration Haloperidol Lactate 1 mg 11/17/21 18:52 11/17/21 19:02 Haloperidol Inj 5 Mg/Ml Inj 1 Ml IM 1 mg Q4H PRN Administration AGITATION dexmedeTOMIDine 0.9 % NaCL 400 mcg in 100 mls @ 0 mls/hr 11/17/21 19:00 11/17/21 19:30 Precedex IV 0 mcg/kg/hr .Q0M JANIS 0 mls/hr Titration Protocol Per Protocol Fentanyl 1,000 mcg/ Sodium 100 mls @ 0 mls/hr 11/17/21 19:15 11/18/21 16:13 Chloride IV 75 mcg/hr .Q0M JANIS 7.5 mls/hr Titration Protocol Per Protocol Propofol 1,000 mg in 100 mls @ 0 mls/hr 11/17/21 19:15 11/18/21 16:40 Diprivan IV 40 mcg/kg/min .Q0M JANIS 38.97 mls/hr Administration Protocol Per Protocol Norepinephrine Bitartrate 4 mg 254 mls @ 0 mls/hr 11/17/21 19:30 11/18/21 10:51 / Dextrose IV Infused .Q0M JANIS Titration Protocol Per Protocol Dextrose 1,000 mls @ 50 mls/hr 11/17/21 20:00 11/18/21 16:11 D10w IV Not Given .Q20H JANIS Midazolam HCl 100 mg/ Sodium 100 mls @ 0 mls/hr 11/17/21 20:30 11/18/21 16:14 Chloride IV 2 mg/hr .Q0M JANIS 2 mls/hr Titration Protocol Per Protocol Dopamine HCl/Dextrose 400 mg in 250 mls @ 30.447 mls/hr 11/17/21 19:58 11/18/21 12:10 Intropin Drip IV 3 mcg/kg/min CONT JANIS 18.27 mls/hr Administration Protocol 5 MCG/KG/MIN Insulin Human Lispro 0 unit 11/18/21 08:00 11/18/21 13:00 Insulin Lispro 100 Unit/1 Ml SUBCUT 2 unit TIDWM JANIS Administration Protocol Pantoprazole Sodium 40 mg 11/17/21 18:15 11/18/21 16:52 Pantoprazole 40 Mg Sdv IVP 40 mg Q24H JANIS Administration PFSH Acute PFSH: Medical History Chronic narcotic dependence History of back pain History of hyperlipidemia History of necrotizing fasciitis History of obesity History of paroxysmal supraventricular tachycardia History of type 2 diabetes mellitus HTN (hypertension) with goal to be determined Surgical History History of back surgery Family History Father Diabetes Social History Smoking and tobacco status: former smoker Alcohol intake: never Substance/Drug Use: never Vitals/I&O/Wt Last Vital Signs Temp 100.6 F H 11/18/21 16:00 Pulse 65 11/18/21 16:00 Resp 18 11/18/21 16:00 BP 120/54 11/18/21 16:00 Pulse Ox 95 11/18/21 16:00 O2 Del Method 11/18/21 16:00 O2 Flow Rate 6 11/17/21 18:12 FiO2 80 11/18/21 16:00 11/18/21 11/18/21 11/18/21 06:59 14:59 22:59 Intake Total 626.758 / 745.246 851.034 / 851.034 126.598 / 977.632 Output Total 2049 900 / 900 Balance -1423.242 / -1304.754 -48.966 / -48.966 126.598 / 77.632 Weight last 48 hrs Weight 358 lb Physical Exam Narrative: GENERAL: The patient is endotracheally intubated and sedated. Morbidly obese HEENT: No significant pallor, icterus or lymphadenopathy.Oral cavity: There are no mucous membrane lesions. NECK: Trachea appears to be central. No masses noted. No JVD or thyromegaly appreciated. RESPIRATORY: Chest is symmetrical. No intercostals muscle retraction or any accessory muscle activation. There is no chest wall tenderness. Breath sounds are heard bilaterally. No rales or rhonchi heard. No evidence of any consolidation. BREASTS: Deferred. HEART: The heart sounds are normal. No S3 or S4. No significant murmurs. No pericardial rub ABDOMEN: Obese and nontender. No organomegaly appreciated. Bowel sounds are normally heard. : Deferred. RECTAL: Deferred. LYMPHATIC: No lymphadenopathy noted in the neck. EXTREMITIES: 1-2+ edema both lower extremities. No cyanosis. Features of chronic venous stasis. MUSCULOSKELETAL: No acute joint deformities or swelling SKIN: There are no significant rashes or ecchymosis NEUROPSYCHIATRIC: Patient is intubated and sedated. Urinary Catheter Management: Leone: Cath Placed During This Visit: yes Reason for Continuing Indwelling Catheter: Accurate Measurement of Urinary Output in Critically Ill Patients Urinary Catheter Date of Insertion: 11/17/21 Urinary Catheter Time of Insertion: 18:15 Data : 11/18/21 01:30 11/18/21 15:00 Other Labs: Laboratory Last Values WBC 10.7 10^3/uL (4.0-10.0) H 11/18/21 01:30 RBC 4.05 10^6/uL (4.1-5.3) L 11/18/21 01:30 Hgb 12.3 g/dL (11.7-16.6) 11/18/21 01:30 Hct 38.5 % (42.0-52.0) L 11/18/21 01:30 MCV 95.1 fl (80-94) H 11/18/21 01:30 MCH 30.4 pg (28.0-34.0) 11/18/21 01:30 MCHC 31.9 g/dL (30.0-36.0) 11/18/21 01:30 RDW 13.2 % (12.1-15.1) 11/18/21 01:30 Plt Count 130 10^3/cmm (130-400) 11/18/21 01:30 MPV 11.7 fL (7.4-10.4) H 11/18/21 01:30 Neut % (Auto) 81.4 % 11/18/21 01:30 Lymph % (Auto) 9.7 % 11/18/21 01:30 Lucas % (Auto) 7.6 % 11/18/21 01:30 Eos % (Auto) 0.2 % 11/18/21 01:30 Baso % (Auto) 0.3 % 11/18/21 01:30 Neut # (Auto) 8.69 10^3/uL (1.8-7.7) H 11/18/21 01:30 Lymph # (Auto) 1.0 10^3/uL (0.8-4.8) 11/18/21 01:30 Lucas # (Auto) 0.8 10^3/uL (0.2-0.9) 11/18/21 01:30 Eos # (Auto) 0.0 10^3/uL (0.0-0.8) 11/18/21 01:30 Baso # (Auto) 0.0 10^3/uL (0.0-0.1) 11/18/21 01:30 Nucleated RBC % (auto) 0 % 11/18/21 01:30 Nucleated RBCs # 0.0 /100WBC 11/18/21 01:30 PT 12.70 SECONDS (12.1-14.9) 11/17/21 19:00 INR 0.92 (0.8-1.2) 11/17/21 19:00 Specimen Type Arterial 11/18/21 05:17 Sample Site Radial, right 11/18/21 05:17 ABG pH 7.36 (7.35-7.45) 11/18/21 05:17 ABG pCO2 45.1 mmHg (35-45) H 11/18/21 05:17 ABG pO2 82.9 mmHg (80.0-100.0) 11/18/21 05:17 ABG HCO3 25.4 mmol/L (22-26) 11/18/21 05:17 ABG O2 Saturation 97.0 11/18/21 05:17 ABG Base Excess -0.4 mmol/L (-2.0-2.0) 11/18/21 05:17 Jan Test Pos 11/18/21 05:17 A-a O2 Gradient 1.4 mmHg (5-10) L 11/18/21 05:17 Hematocrit 38.7 % (42-52) L 11/18/21 05:17 Hgb O2 Saturation 95.3 % (95-100) 11/18/21 05:17 Carboxyhemoglobin 0.7 %THgb (0.4-20.1) 11/18/21 05:17 Methemoglobin 1.0 % (0.4-1.5) 11/18/21 05:17 Total Hemoglobin 12.6 g/dL (14-18) L 11/18/21 05:17 Sodium 134.0 mmol/L (131-143) 11/18/21 05:17 Potassium 5.1 mmol/L (3.5-5.0) H 11/18/21 05:17 Glucose 155.0 mg/dL (70-115) H 11/18/21 05:17 Ionized Calcium 1.3 mmol/L (1.1-1.4) 11/18/21 05:17 O2 Delivery Device Vent 11/18/21 00:50 O2 Liters/Min 6.0 % 11/17/21 18:30 FiO2 100.0 % 11/18/21 00:50 Tidal Volume 0.50 11/18/21 00:50 PEEP 10.0 cmH20 11/18/21 00:50 Sales/Marketing ID Anonymous 11/18/21 05:17 Sodium 132 mmol/L (136-145) L 11/18/21 15:00 Potassium 5.4 mmol/L (3.5-5.1) H 11/18/21 15:00 Chloride 96 mmol/L (98-107) L 11/18/21 15:00 Carbon Dioxide 27 mmol/L (22-29) 11/18/21 15:00 Anion Gap 14.4 (5-19) 11/18/21 15:00 BUN 39 mg/dL (8-23) H 11/18/21 15:00 Creatinine 2.8 mg/dL (0.7-1.2) H 11/18/21 15:00 GFR Calculation 23.2 mL/min (90-130) L 11/18/21 15:00 Glucose 182 mg/dL (65-115) H 11/18/21 15:00 POC Glucose 185 mg/dL (70-110) H 11/18/21 13:37 Estimat Average Glucose 206 11/17/21 19:00 Hemoglobin A1c 8.8 % (4.0-6.0) H 11/17/21 19:00 Calculated Osmolality 288 mOsm/kg (285-295) 11/18/21 15:00 Lactic Acid 0.8 mmol/L (0.5-2.2) 11/17/21 19:00 Uric Acid 8.3 mg/dL (3.4-7.0) H 11/17/21 19:05 Calcium 9.0 mg/dL (8.5-10.5) 11/18/21 15:00 Phosphorus 5.6 mg/dL (2.5-4.5) H 11/18/21 01:30 Magnesium 3.0 mg/dL (1.7-2.3) H 11/18/21 01:30 Iron 189 ug/dL (59-158) H 11/18/21 01:30 TIBC 338 mcg/dl 11/18/21 01:30 % Saturation 55.9 % (20-50) H 11/18/21 01:30 Unsat Iron Binding 149 ug/dL (112-347) 11/18/21 01:30 Ferritin 368 ng/mL (30-400) 11/18/21 01:30 Total Bilirubin 0.6 mg/dL (0.15-1.2) 11/18/21 01:30 GGT 49 U/L (8-61) 11/17/21 19:00 AST 16 U/L (0-40) 11/18/21 01:30 ALT 16 U/L (0-41) 11/18/21 01:30 Alkaline Phosphatase 66 IU/L (40-130) 11/18/21 01:30 Troponin T Baseline 33 ng/L (0-15) H 11/17/21 19:05 Troponin T 120 Minute 27.84 ng/L (0-15) H 11/17/21 21:32 Delta Troponin T -5.16 ABS# (0-10) L 11/17/21 21:32 Troponin T Hi Sens 6Hr 33.32 ng/L (0-15) H 11/18/21 01:30 Troponin T Hi Sens 6Hr Delta 0.32 ng/L (0-12) 11/18/21 01:30 C-Reactive Protein 5.3 mg/L (0.0-4.9) H 11/17/21 19:00 NT-Pro-B Natriuret Pep 1269 pg/mL (0-125) H 11/17/21 19:00 Total Protein 6.9 g/dL (6.6-8.7) 11/18/21 01:30 Albumin 3.9 g/dL (3.5-5.2) 11/18/21 01:30 Globulin 3.0 g/dL (1.3-4.6) 11/18/21 01:30 Amylase 60 U/L (28-100) 11/17/21 19:00 Lipase 43 U/L (13-60) 11/17/21 19:00 25-OH Vitamin D Total 29 ng/mL (30-100) L 11/18/21 01:30 TSH 1.19 uIU/mL (0.27-4.20) 11/17/21 19:00 PTH Intact 48.2 pg/mL (15-65) 11/18/21 01:30 Calcium (PTH Intact) 9.5 mg/dL (8.5-10.5) 11/18/21 01:30 Urine Color Yellow (Yellow) 11/17/21 18:42 Urine Appearance Clear (CLEAR) 11/17/21 18:42 Urine pH 5.0 (5-7) 11/17/21 18:42 Ur Specific Harrison 1.020 (1.005-1.030) 11/17/21 18:42 Urine Protein Neg (Negative) 11/17/21 18:42 Urine Glucose (UA) Norm (Normal) 11/17/21 18:42 Urine Ketones Negative (Negative) 11/17/21 18:42 Urine Blood Neg (Negative) 11/17/21 18:42 Urine Nitrate Negative (Negative) 11/17/21 18:42 Urine Bilirubin 1+ (Negative) H 11/17/21 18:42 Urine Urobilinogen Norm mg/dL (Negative) 11/17/21 18:42 Ur Leukocyte Esterase Negative (Negative) 11/17/21 18:42 Ur Microscopic Indic Cancelled 11/17/21 18:42 Urine RBC 0-4 /hpf (0-2) H 11/17/21 18:42 Urine WBC 0-4 /hpf (0-5) H 11/17/21 18:42 Ur Eosinophil Smear Not Reportable 11/17/21 18:42 Ur Squamous Epith Cells 0-4 /hpf (0-5) H 11/17/21 18:42 Amorphous Sediment Not Reportable 11/17/21 18:42 Urine Bacteria Trace /hpf (NONE) 11/17/21 18:42 Urine Eosinophils No eosinophils seen 11/17/21 18:42 U Random Total Protein 25 mg/dL 11/17/21 18:42 Ur Random Sodium 38 mmol/L 11/17/21 18:42 Ur Random Potassium 42 mmol/L 11/17/21 18:42 Ur Random Chloride 15 mmol/L 11/17/21 18:42 Ur Random Urea Nitrogn 524 mg/dL 11/17/21 18:42 Ur Random Calcium 2.4 mg/dL 11/17/21 18:42 Urine Creatinine 142 mg/dL (39-259) 11/17/21 18:42 Salicylates < 0.3 mg/dL (3-10) L 11/17/21 19:00 Urine Opiates Screen Positive ng/mL (Negative) H 11/17/21 18:42 Ur Barbiturates Screen Negative ng/mL (Negative) 11/17/21 18:42 Ur Phencyclidine Scrn Negative ng/mL (Negative) 11/17/21 18:42 Ur Amphetamines Screen Negative ng/mL (Negative) 11/17/21 18:42 U Benzodiazepines Scrn Negative ng/mL (Negative) 11/17/21 18:42 Urine Cocaine Screen Negative ng/mL (Negative) 11/17/21 18:42 U Marijuana (THC) Screen Negative ng/mL (Negative) 11/17/21 18:42 Hep Bs Antigen Non-reactive (Nonreactive) 11/17/21 19:05 Hep Bs Antibody 3.5 (11.5-1000) L 11/17/21 19:05 Hepatitis C Antibody Non-reactive (Nonreactive) 11/17/21 19:05 Micro: Microbiology 11/18/21 07:49 Gram Stain - Final Sputum - Endotracheal Tube Aspirate 11/17/21 21:32 Blood Culture - Preliminary Blood SPECIMEN COLLECTED 11/17/21 21:28 Blood Culture - Preliminary Blood SPECIMEN COLLECTED EKG 1: My Interpretation: Sinus rhythm with a rate of 63 bpm. Low voltage complexes in the precordial leads. Incomplete right bundle branch block. Pattern consistent with a pulmonary disease EKG computer-generated impression: Chest X-Ray 11/18/21 07:00 IMPRESSION: 1. No acute process identified and very little change since previous exam. 2. ET tube and left-sided central line both appear to be in satisfactory location. Enteric tube looped in the stomach but the tip is not visible. Right IJ catheter identified probably ending in the lower one third of the SVC. KUB X-Ray 11/18/21 09:17 IMPRESSION: 1. Moderate gaseous dilatation the colon with retained stool. 2. No acute process noted at this time. 3. Enteric tube in satisfactory position in the body the stomach. Renal Ultrasound 11/18/21 18:22 IMPRESSION: Normal renal ultrasound. A&P Assessment and plan (1) Bradycardia: Patient's bradycardia most likely related to the acute renal failure/hyperkalemia , multiple electrolyte imbalance and medication (sotalol). He has a questionable history of atrial fibrillation. He may have an underlying sinus node dysfunction as well. Currently the patient seems to be in sinus rhythm. The potassium level also has come down markedly from 9.0- to 5.4. So far the patient had a 2 sessions of dialysis. His electrolytes need to be closely monitored. I may hold off on the Betapace at this time. Status: Acute (2) Hypotension: This could be multifactorial. He has a low-grade fever. Sepsis is a likely possibility. The blood pressure seems to be slowly improving. Status: Acute (3) Acute renal failure: Had 2 sessions of dialysis. Nephrology is on the case Status: Acute (4) Acute hyperkalemia: As mentioned above. Status: Acute (5) Hypercarbia: Patient is on the ventilator. Oxygenation seems to be appropriate at this time. Status: Acute (6) History of paroxysmal supraventricular tachycardia: We will be closely monitoring the rhythm on the monitor. May restart the Betapace, if the kidney function returns to normal Status: Acute (7) Constipation: Management as per the primary Status: Acute Plan For a cardiac standpoint, the patient did not require any specific intervention at this point. We will continue close monitoring. Also we will try to get the medical records from Dr. Antonio Vega's office. Hold off on the Betapace till the BUN and creatinine return to the baseline Consult Attestations Medical Necessity Statement: Patient requires continued hospital stay for close monitoring and further management Coding Level of Care Code Acute Program Development Manager for Chg Fwd History Expanded Problem Focused Exam Expanded Problem Focused Medical Decision Making Moderate Complexity Diagnoses Bradycardia R00.1 Hypotension I95.9 Acute renal failure N17.9 Acute hyperkalemia E87.5 Hypercarbia R06.89 History of paroxysmal supraventricular tachycardia Z86.79 Constipation K59.00
--- NOTE | 2021-11-18 18:22 | USCV_ITS ---
Byron Reilly Age: 61 Gender: M : 1960 Exam Date: 11/18/2021 01:49 Ordering Phys: Feng Artis MD Technologist: Exam [place] [facility] [place] Indication: Morbid Obesity 6' 0 386 lbs on vent in ICU HISTORY: Morbid Obesity 6' 0 386 lbs on vent in ICU PROCEDURES: Venous duplex imaging was performed in bilateral lower extremities. The venous duplex Doppler examination of both lower extremities was performed in the standard fashion. The following venous structures were evaluated: common femoral vein, profunda vein, proximal portion of the greater saphenous vein, superficial femoral vein, and the popliteal vein. FINDINGS: Normal 2-D Doppler and augmentation and compressibility throughout the lower extremity venous structures. Additional imaging through the proximal calf veins also reveals no thrombus. Limited evaluation of the greater saphenous vein is patent with no thrombus. CONCLUSIONS No DVT bilateral lower extremities. Dr. Beverly Puente DO (Electronically Signed) Final Date: 18 November 2021 08:22 S
--- NOTE | 2021-11-18 18:22 | US_ITS ---
WS: [id number] RENAL ULTRASOUND HISTORY: renal failure COMPARISON: None available. TECHNIQUE: 2-D and color Doppler imaging of the kidney submitted. Right kidney: 11.8 cm x 5.7 cm x 5.0 cm. Normal echogenicity with no hydronephrosis or mass. Left kidney: 11.4 cm x 5.7 cm x 5.7 cm. Normal echogenicity with no hydronephrosis or mass. Aorta: Not visualized. Urinary Bladder: Nondistended bladder. Leone catheter is present. US/US renal BI* [id number] IMPRESSION: Normal renal ultrasound.
--- NOTE | 2021-11-18 18:22 | USCV_ITS ---
Tommie Byron Age: 61 Gender: M : 1960 Exam Date: 11/18/2021 02:32 Ordering Phys: Feng Artis MD Technologist: GUEVARA Exam Location: [facility] [place] Indication: DDCHF. Patient is on ventilator in ICU-7. No history is available. BP: 122 / 66 HR: 65 Rhythm: Sinus Technical Quality: Poor MEASUREMENTS (Male / Female) Normal Values 2D ECHO LV Diastolic Diameter PLAX 4.3 cm 4.2 - 5.9 / 3.9 - 5.3 cm LV Systolic Diameter PLAX 2.6 cm IVS Diastolic Thickness 2.0 cm 0.6 - 1.0 / 0.6 - 0.9 cm IVS Systolic Thickness 2.6 cm LVPW Diastolic Thickness 1.9 cm 0.6 - 1.0 / 0.6 - 0.9 cm LVPW Systolic Thickness 2.4 cm LVOT Diameter 2.5 cm LV Ejection Fraction 2D Teich 71.8 % LA Diameter 5.1 cm LA Width 5.3 cm LA Height 7.2 cm RA Width 3.9 cm RA Height 6.1 cm Aorta at Sinotubular Diameter 3.4 cm IVC Diameter 3.5 cm M-MODE Aortic Annulus Diameter 3.8 cm LA Ao Ratio MM 1.4 MV E Point Septal Separation 0.3 cm DOPPLER AV Peak Velocity 184.0 cm/s LVOT Peak Velocity 102.0 cm/s AV Area Cont Eq vti 3.4 cm squared AV Area Cont Eq pk 2.8 cm squared MV Peak Velocity 108.0 cm/s MV Area PHT 2.6 cm squared Mitral E to A Ratio 0.9 MV E' Velocity 45.0 cm/s Mitral E to MV E' Ratio 14.3 Mitral E to LV E' Lateral Ratio 13.6 Mitral E to LV E' Septal Ratio 15.3 TR Peak Velocity 269.0 cm/s TR Peak Gradient 28.9 mmHg TV Peak E Velocity 75.0 cm/s Right Atrial Pressure 10.0 mmHg Pulmonary Artery Systolic Pressu 38.9 mmHg PV Peak Velocity 123.0 cm/s RV Acceleration Time 0.1 s RV Ejection Time 0.3 s RV AcT/ET 0.5 FINDINGS Left Ventricle Study is poor in quality. The patient is on a ventilator. Intravenous echo contrast was used. The ventricle is probably normal in size and function. No obvious regional wall motion disturbances. Diastolic function not evaluated. Overall ejection fraction is within normal limits and approximately 60%. Right Ventricle Normal right ventricular size and systolic function. Normal right ventricular systolic pressure. Right Atrium The right atrium is normal in size. Left Atrium Mildly increased left atrial size. Mitral Valve Mitral valve not well visualized. No mitral valve regurgitation. Aortic Valve Aortic valve not well visualized. No aortic valve stenosis. No aortic valve regurgitation. Tricuspid Valve Tricuspid valve not well visualized. Pulmonic Valve Pulmonic valve not well visualized. Pericardium Normal pericardium without effusion. Aorta Normal ascending aorta dimension. IVC The inferior vena cava is not well seen but does not collapse completely on respiration. CONCLUSIONS Study is poor in quality. The patient is on a ventilator. Intravenous echo contrast was used. The ventricle is probably normal in size and function. No obvious regional wall motion disturbances. Diastolic function not evaluated. Overall ejection fraction is within normal limits and approximately 60%. Mildly increased left atrial size. Dr. Bakari Wynne MD (Electronically Signed) Final Date: 18 November 2021 16:26 S
[2021-11-18] MEDS: acetaminophen 325 mg Tablet 650 MG PO (21:32)
[2021-11-18 22:59] LABS: Glucose Point of Care 151 mg/dL (70-110)
[2021-11-19] VITALS (83 sets, daily range): BP systolic 97–155; BP diastolic 46–80; PULSE 66–96; RESP 16–21; TEMP 37.2–39.1; O2SAT 86–97
[2021-11-19] MEDS: propofol 1,000 MG/100 ML INJ 38.97 MG IV ×6 (00:33→13:06)
[2021-11-19] MEDS: DOPamine drip 400 MG/250 ML PREMIX 18.27 MG IV (01:08)
[2021-11-19] MEDS: ipratropium-albuterol 3 mL Neb INHALATION ×5 (03:34→20:49)
[2021-11-19] MEDS: chlorhexidine gluconate 4% Btl 118 mL 1 APPLIC TOPICAL (04:48)
[2021-11-19] MEDS: acetaminophen 325 mg Tablet 650 MG PO ×3 (05:11→18:03)
[2021-11-19 05:38] LABS: ABG PCO2 42.3 mmHg (35-45); ABG PH Result 7.39 (7.35-7.45); Arterial Blood Gas Hematocrit 51.8 % (42-52); Base Excess ABG 0.4 mmol/L (-2.0-2.0); Blood Gas Allen Test Pos; Blood Gas Operator Identificat JB; Blood Gas Sample Site Radial, right; Blood Gas Sample Type Arterial; Blood Gas Tidal Volume 0.55; HCO3 ABG 25.6 mmol/L (22-26); Oxygen Device VENT; PO2 ABG 69.1 mmHg (80.0-100.0)
[2021-11-19 05:49] LABS: Basophils % 0.2 %; Eosinophils # 0.1 10^3/uL (0.0-0.8); Eosinophils % 1.2 %; Lymphocytes # 1.6 10^3/uL (0.8-4.8); Mean Corpuscular HGB Conc 32.4 g/dL (30.0-36.0); Mean Corpuscular Hemoglobin 30.2 pg (28.0-34.0); Mean Corpuscular Volume 93.2 fl (80-94); Mean Platelet Volume 11.2 fL (7.4-10.4); Monocytes # 1.3 10^3/uL (0.2-0.9); Monocytes % 13.8 %; Neutrophils # 6.14 10^3/uL (1.8-7.7); Neutrophils % 67.1 %; Nucleated Red Blood Cells % 0 %; Platelet Count 125 10^3/cmm (130-400); Red Blood Count 3.97 10^6/uL (4.1-5.3); Red Cell Distribution Width 13.3 % (12.1-15.1); White Blood Count 9.1 10^3/uL (4.0-10.0)
--- NOTE | 2021-11-19 06:00 | XR_ITS ---
WS: [id number] Exam: XR KUB portable [id number] Date/Time of Exam: 11/19/2021 5:08 AM Reason For Exam: constipation Enteric tube noted in the stomach. The tip probably in the region of the antrum. No bowel obstruction or pneumoperitoneum. Organ margins are obscured. Fusion hardware in the lower lumbar spine. XR/XR KUB portable [id number] IMPRESSION: 1. No acute abdominal finding. 2. Enteric tube in the stomach probably ending in the region of the antrum.
--- NOTE | 2021-11-19 06:00 | XR_ITS ---
WS: [id number] Exam: XR chest 1V portable [id number] Date/Time of Exam: 11/19/2021 5:08 AM Reason For Exam: sob Comparison 11/18/2021. The lungs are fully expanded and clear. No pleural effusions. ET tube is in place ending about 4 cm a quincy the nikia in good position. A left subclavian central line ends in the region of the cavoatrial junction. A right-sided IJ central line ends in the lower one third of the SVC. An enteric tube exte nds into the stomach but the tip is not visible. XR/XR chest 1V portable [id number] IMPRESSION: 1. No acute process and no significant change is previous study. 2. ET tube, central lines and enteric tube all appear to be in satisfactory pos ition.
[2021-11-19 06:04] LABS: Lactate (Lactic Acid level) 1.2 mmol/L (0.5-2.2)
[2021-11-19 06:12] LABS: INR 0.97 (0.8-1.2)
[2021-11-19 06:21] LABS: NT Pro B Type Natriuretic Pept 372 pg/mL (0-125); Procalcitonin 0.22 ng/mL (0-0.5)
--- NOTE | 2021-11-19 06:25 | P.PN_ITS ---
Subjective Subjective: remains sedated pn vent- off pressors. over 2l uop overnight Medications: Reviewed: Yes Medication Review Details: Current Medications Acetaminophen (Acetaminophen 325 Mg Tablet) 650 mg PO Q6H PRN PRN Reason: Mild/Mod Pain Or Temp >/= 101 Last Admin: 11/19/21 05:11 Dose: 650 mg Albuterol/Ipratropium (Ipratropium-Albuterol 3 Ml Neb) 3 ml INHALATION Q4H.RESPIRATORY JANIS Last Admin: 11/19/21 03:34 Dose: 3 ml Chlorhexidine Gluconate (Chlorhexidine Gluconate 4% Btl 118 Ml) 1 applic TOPICAL 0100 JANIS Last Admin: 11/19/21 04:48 Dose: 1 applic Dextrose (Dextrose 50% Syringe 50 Ml) 25 ml IVP ONCE PRN; Protocol PRN Reason: hypoglycemia protocol Dextrose (Dextrose 50% Syringe 50 Ml) 50 ml IVP PRN PRN; Protocol PRN Reason: hypoglycemia protocol Enoxaparin Sodium (Enoxaparin 40 Mg/0.4 Ml Syringe) 40 mg SUBCUT Q24H JANIS Last Admin: 11/18/21 16:43 Dose: 40 mg Glucagon (Glucagon 1 Mg/Ml Inj 1 Ml) 1 mg IM ONCE PRN; Protocol PRN Reason: Adult Acute Hypoglycemia Prot. Haloperidol Lactate (Haloperidol Inj 5 Mg/Ml Inj 1 Ml) 1 mg IM Q4H PRN PRN Reason: AGITATION Last Admin: 11/17/21 19:02 Dose: 1 mg Dextrose (D5w) 500 mls @ 100 mls/hr IV ONCE PRN; Protocol PRN Reason: Adult Acute Hypoglycemia Prot dexmedeTOMIDine 0.9 % NaCL (Precedex) 400 mcg in 100 mls @ 0 mls/hr IV .Q0M JANIS; Protocol Last Titration: 11/17/21 19:30 Dose: 0 mcg/kg/hr, 0 mls/hr Fentanyl 1,000 mcg/ Sodium (Chloride) 100 mls @ 0 mls/hr IV .Q0M JANIS; Protocol Last Titration: 11/19/21 03:42 Dose: 100 mcg/hr, 10 mls/hr Propofol (Diprivan) 1,000 mg in 100 mls @ 0 mls/hr IV .Q0M JANIS; Protocol Last Admin: 11/19/21 05:20 Dose: 40 mcg/kg/min, 38.97 mls/hr Norepinephrine Bitartrate 4 mg (/ Dextrose) 254 mls @ 0 mls/hr IV .Q0M JANIS; Protocol Last Titration: 11/19/21 03:43 Dose: 0 mcg/min, 0 mls/hr Dextrose (D10w) 1,000 mls @ 50 mls/hr IV .Q20H JANIS Last Admin: 11/18/21 16:11 Dose: Not Given Midazolam HCl 100 mg/ Sodium (Chloride) 100 mls @ 0 mls/hr IV .Q0M JANIS; Protoc ol Last Titration: 11/18/21 21:04 Dose: 2 mg/hr, 2 mls/hr Dopamine HCl/Dextrose (Intropin Drip) 400 mg in 250 mls @ 30.447 mls/hr IV CONT JANIS; Protocol Last Admin: 11/19/21 01:08 Dose: 3 mcg/kg/min, 18.27 mls/hr Insulin Human Lispro (Insulin Lispro 100 Unit/1 Ml) 0 unit SUBCUT TIDWM JANIS; P rotocol Last Admin: 11/18/21 18:17 Dose: Not Given Morphine Sulfate (Morphine 4 Mg/Ml Sdv 1 Ml) 2 mg IVP Q4H PRN PRN Reason: SEVERE PAIN Naloxone HCl (Naloxone 0.4 Mg/Ml Sdv) 0.1 mg IVP Q2M PRN PRN Reason: OPIATERV Ondansetron HCl (Ondansetron 2 Mg/Ml Sdv 2 Ml) 4 mg IVP Q8H PRN PRN Reason: vomiting, or N/V if npo Pantoprazole Sodium (Pantoprazole 40 Mg Sdv) 40 mg IVP Q24H JANIS Last Admin: 11/18/21 16:52 Dose: 40 mg Vitals/I&O/Wt Last Vital Signs Temp 100.6 F H 11/19/21 04:30 Pulse 86 11/19/21 05:00 Resp 18 11/19/21 06:00 BP 109/52 11/19/21 05:00 Pulse Ox 93 11/19/21 06:00 O2 Del Method 11/19/21 03:30 O2 Flow Rate 6 11/17/21 18:12 FiO2 50 11/19/21 06:00 11/18/21 11/18/21 11/19/21 14:59 22:59 06:59 Intake Total 851.034 / 851.034 437.822 / 1288.856 651.247 / 1940.103 Output Total 900 / 900 Balance -48.966 / -48.966 437.822 / 388.856 651.247 / 1040.103 Weight last 48 hrs Weight 162.386 kg Physical Exam Narrative: obese, intubated - fio2=50%/ PEEP 10/ TV 500 febrile heent- nc/at, eomi neck supple, rt sided dialysis catheter lungs crackles heart reg, +YASMINE abd soft, distended, low BS ext b/l edema + collins neuro- sedated Urinary Catheter Management: Collins: Cath Placed During This Visit: yes Reason for Continuing Indwelling Catheter: Accurate Measurement of Urinary Output in Critically Ill Patients Urinary Catheter Date of Insertion: 11/17/21 Urinary Catheter Time of Insertion: 18:15 Data : 11/19/21 05:34 11/18/21 15:00 Micro: Microbiology 11/17/21 21:32 Blood Culture - Preliminary Blood NEGATIVE TO DATE 11/17/21 21:28 Blood Culture - Preliminary Blood NEGATIVE TO DATE 11/18/21 07:49 Gram Stain - Final Sputum - Endotracheal Tube Aspirate A&P Assessment and plan (1) Acute renal failure: 61 yr old man Obesity, DM, SVT, CHF, back pain A. Fevers per medicine 1. s/p intubation and cardiac arrest- s/p HD- off pressors -wean vent per pulm / medicine 2. ESMER- likely from diuretics and celebrex -renal us -rt 11.8 cm, left 11. 4 cm -ua -negative ur na 38 -ur eos, pr, cr pending - serologies pending review laxatives for possible phosphorus containing laxative -s/p emergent HD x 2 - Dr Rivas placed a right IJ dialysis access -informed consent for Hemodialysis and for telehealth visit obtained from pts -hold hd and monitro uop. can give lasix as needed 3. balanced acid/ base status 4 .hyperkalemia- monitor s/p HD x 2 5. hyponatremia from ESMER- monitor w/ dialysis -improved to 132 6 . DM care per medicine 7 . hypercalcemia- can be from med treatment given to him to treat his hyperkalemia. -ca improving -phos improving -normal pth and vit d level 29- can replete 8. echo okay EF case discussed w/ TYPING POOL SUPERVISOR -seen and examined w/ electric welder helper- telehealth visit time spent >30 min Status: Acute Plan see above Attestations Medical Necessity Statement*: vdrf, esmer, fevers Time Spent in Patient Care: 16 - 35 minutes (>than 50% of time spent in counselling and/or direct pt care on unit) . Coding Level of Care Code Acute Marking Room Supervisor for [facility] Medical Decision Making Moderate Complexity Diagnoses Acute renal failure N17.9
[2021-11-19 06:33] LABS: Alanine Aminotransferase 31 U/L (0-41); Albumin Level 3.4 g/dL (3.5-5.2); Alkaline Phosphatase 62 IU/L (40-130); Anion Gap 17.5 (5-19); Aspartate Amino Transferase 123 U/L (0-40); Blood Urea Nitrogen 42 mg/dL (8-23); C Reactive Protein 32.3 mg/L (0.0-4.9); Calcium 9.1 mg/dL (8.5-10.5); Carbon Dioxide 23 mmol/L (22-29); Chloride 98 mmol/L (98-107); Globulin 3.1 g/dL (1.3-4.6); Glomerular Filtration Rate 27.8 mL/min (90-130); Glucose 139 mg/dL (65-115); Magnesium 2.5 mg/dL (1.7-2.3); Osmolality Calculated 289 mOsm/kg (285-295); Phosphorus 3.8 mg/dL (2.5-4.5); Potassium 5.5 mmol/L (3.5-5.1); Sodium 133 mmol/L (136-145); Total Bilirubin 0.4 mg/dL (0.15-1.2); Total Protein 6.5 g/dL (6.6-8.7)
[2021-11-19 06:53] LABS: Creatine Phosphokinase 6733 U/L (39-308)
[2021-11-19] MEDS: FUROsemide 10 mg/mL SDV 2mL 20 MG IVP (07:21)
[2021-11-19 07:37] LABS: Glucose Point of Care 145 mg/dL (70-110)
[2021-11-19] MEDS: insulin lispro 100 unit/1 mL SUBCUT ×3 (08:15→17:49)
[2021-11-19] MEDS: piperacillin-tazobactam 3.375 GM in sodium chloride 0.9% (plus) 50 ML IV ×2 (10:46→17:48)
[2021-11-19 11:23] LABS: Influenza A by IFA Negative (Negative); Influenza B by IFA Negative (Negative)
[2021-11-19 11:24] LABS: Glucose Point of Care 160 mg/dL (70-110)
[2021-11-19 11:28] LABS: Urine Creatinine 62 mg/dL (39-259); Urine Protein Random 4 mg/dL
[2021-11-19 11:28] LABS: Anti-streptolysin O <50 IU/mL (<200)
[2021-11-19] MEDS: FUROsemide 10 mg/mL SDV 4mL 40 MG IVP (11:34)
[2021-11-19 11:38] LABS: Add Urine Culture? No; Add Urine Microscopic? YES; Bilirubin Urine Neg (Negative); Blood Urine 3+ (Negative); Glucose Urine UA Norm (Normal); Ketones Urine Negative (Negative); Leukocyte Esterase Urine 2+ (Negative); Nitrate Urine Negative (Negative); Protein Urine Neg (Negative); Squamous Epithelial Cell Urine 0-4 /hpf (0-5); Urine Appearance Clear (CLEAR); Urine Color Yellow (Yellow); Urobilinogen Urine Norm (Negative); pH Urine 5 (5-7)
[2021-11-19 12:06] LABS: Adenovirus Not Detected (NOT DETECT); Chlamydia Pneumoniae Not Detected (NOT DETECT); Coronavirus 229E,HKU1,NL63,OC4 Not Detected (NOT DETECT); Human Metapneumovirus Not Detected (NOT DETECT); Human Rhinovirus/Enterovirus Not Detected (NOT DETECT); Influenza A Not Detected (NOT DETECT); Influenza A H1 Not Detected (NOT DETECT); Influenza A H1-2009 Not Detected (NOT DETECT); Influenza A H3 Not Detected (NOT DETECT); Influenza B Not Detected (NOT DETECT); Mycoplasma Pneumoniae Not Detected (NOT DETECT); Parainfluenza Virus Type 1 Not Detected (NOT DETECT); Parainfluenza Virus Type 2 Not Detected (NOT DETECT); Parainfluenza Virus Type 3 Not Detected (NOT DETECT); Parainfluenza Virus Type 4 Not Detected (NOT DETECT); Respiratory Syncytial Virus A Not Detected (NOT DETECT); Respiratory Syncytial Virus B Not Detected (NOT DETECT); SARS-COV-2 Not Detected (NOT DETECT)
--- NOTE | 2021-11-19 12:38 | P.PN_ITS ---
Subjective Subjective: Patient was seen this morning, family members at bedside -He received dialysis yesterday, did have intermittent hypotensive episodes during dialysis improving with Levophed -This morning he continues to have good urine output -He was febrile throughout the night -No significant sputum output from endotracheal tube -No open sores, -Remains intubated, mechanically ventilated, sedated -Nephro has seen him this morning, no plans on dialysis as there is concerns for fevers -He remains on 50% FiO2 -I had a detailed discussion with patient's family at bedside, discussing fevers, source of fever, further tests ordered, in addition to concerns for persistent hypoxia, high FiO2 requirements, need for additional Lasix, and fluid removal via dialysis -Patient's sister and at bedside, answered all questions, opportunity to answer questions, they voiced understanding, all questions answered, agreed to proceed Vitals/I&O/Wt Last Vital Signs Temp 100.6 F H 11/19/21 04:30 Pulse 84 11/19/21 12:22 Resp 18 11/19/21 12:23 BP 109/52 11/19/21 05:00 Pulse Ox 94 11/19/21 12:23 O2 Del Method 11/19/21 12:22 O2 Flow Rate 6 11/17/21 18:12 FiO2 50 11/19/21 12:23 11/18/21 11/19/21 11/19/21 22:59 06:59 14:59 Intake Total 437.822 / 1288.856 651.247 / 1940.103 224.042 / 224.042 Output Total 1999 Balance 437.822 / 388.856 -1348.753 / -959.897 224.042 / 224.042 Weight last 48 hrs Weight 162.386 kg Physical Exam Const: COMMON NORMALS: no acute distress OTHER: Remains intubated, sedated, mechanical ventilation Right dialysis catheter in place Left central line in place Orogastric tube in place Leone catheter in place HENMT: COMMON NORMALS: normocephalic HEAD & SCALP: normocephalic Eye: OTHER: Pupils are pinpoint, minimally reactive to light Resp: COMMON NORMALS: normal respiratory effort, No retractions, No use of accessory muscles and clear to auscultation bilaterally AUSCULTATION: clear to auscultation bilaterally Cardio: COMMON NORMALS: regular rate, regular rhythm, S1 normal heart sound present and S2 normal heart sound present RATE: regular rate RHYTHM: regular rhythm HEART SOUNDS: S1 normal heart sound present and S2 normal heart sound present GI: COMMON NORMALS: non-tender, no masses and no bruits OTHER: Abdomen soft, distended, decreased bowel sounds, no guarding, no rebound, no rigidity Extremity: NARRATIVE EXTREMITY EXAM: 2+ edema bilateral lower extremity Urinary Catheter Management: Leone: Cath Placed During This Visit: yes Reason for Continuing Indwelling Catheter: Accurate Measurement of Urinary Output in Critically Ill Patients Urinary Catheter Date of Insertion: 11/17/21 Urinary Catheter Time of Insertion: 18:15 Data : 11/19/21 05:34 11/19/21 05:34 Micro: Microbiology 11/18/21 07:49 Gram Stain - Final Sputum - Endotracheal Tube Aspirate Sputum Culture - Preliminary 11/19/21 09:02 Blood Culture - Preliminary Blood SPECIMEN COLLECTED 11/19/21 08:50 Blood Culture - Preliminary Blood SPECIMEN COLLECTED 11/17/21 18:42 Urine Culture - Final Urine Catheterized 11/17/21 21:32 Blood Culture - Preliminary Blood NEGATIVE TO DATE 11/17/21 21:28 Blood Culture - Preliminary Blood NEGATIVE TO DATE A&P Assessment and plan (1) Sinus bradycardia: Status: Acute (2) Ileus: Status: Acute (3) Poor venous access: Status: Acute (4) Constipation: Status: Acute (5) Acute renal failure: Status: Acute (6) Hypercarbia: Status: Acute (7) Acute hyperkalemia: Status: Acute (8) Acute and chronic respiratory failure with hypoxia: Status: Acute (9) Shock: Status: Acute (10) Acute exacerbation of CHF (congestive heart failure): Status: Acute Plan Acute hypoxic hypercarbic respiratory failure -Patient's sudden decompensation yesterday evening, likely a component of hypercarbia, acute encephalopathy, possible aspiration, acute flash pulmonary edema acute diastolic CHF exacerbation -Remains fluid overloaded, bilateral lower extremity edema, 2+, elevated BNP Plan -Continue intubation, mechanical ventilation, minimize FiO2, tidal volume -Propofol, fentanyl for sedation, Versed if needed -Follow blood cultures, sputum cultures, monitor for fevers -Continue dialysis for fluid overload strongly encouraged, will give Lasix this morning -Keep n.p.o. -Lovenox for DVT prophylaxis -Protonix for GI prophylaxis -Status stable, prognosis is guarded -Consult pulmonary team persistent hypoxia, possible Fevers -Repeat blood cultures -Repeat sputum cultures -UA, urine culture -Pro-Osbaldo, CRP, sed rate -COVID, flu -Bilateral venous ultrasound negative for DVT -We will do CT chest abdomen pelvis -Possible aspiration? Might require bronchoscopy -For now start on prophylactic antibiotic therapy vancomycin, Zosyn Sinus bradycardia, with shock -Heart rates as low as 20s, blood pressure 60s over 40s -Secondary to acute hyperkalemia -Yesterday evening -He never lost his pulse, he never lost a blood pressure -Status post 3 g of atropine, requiring up to 20 of Levophed, currently down to 10 during dialysis dopamine titrating down, external pacing currently off, treatment of hyperkalemia as below -Continues to have sinus bradycardia, P waves present, no QRS prolongation, peak T waves still present -Continue telemetry monitoring -Cardiac echo -Study is poor in quality.? The patient is on a ventilator.? ?Intravenous echo contrast was used.? The ventricle is probably ?normal in size and function.? No obvious regional wall motion ?disturbances.? Diastolic function not evaluated.? Overall ?ejection fraction is within normal limits and approximately 60%. ?Mildly increased left atrial size. -I have consulted cardiology -Currently no need for pacemaker placement, external pacing, hemodynamically stable Shock -Likely secondary to sedating medication, dialysis -Levophed as needed Acute hyperkalemia -Likely secondary to acute renal failure -With sinus bradycardia, flattening of T waves, peaked T waves, QRS prolongation, EKG changes -Status post 3 doses of 1 g calcium chloride, 20 units IV push insulin with D50, sodium bicarb, Kayexalate, Xopenex -Currently responsive to dialysis -Potassium 5.5 Acute renal failure as above, secondary to Celebrex, diuretic therapy Rhabdomyolysis, CPK over 6000, minimize propofol, monitor propofol infusion syndrome Morbid obesity, intubation as above Type 2 diabetes mellitus, A1c 8.8, continue low-dose sliding scale Evidence of ileus, significant constipation, keep n.p.o., will consider CT scan abdomen pelvis once more stable Attestations Medical Necessity Statement*: Patient requires hospital station, for acute respiratory failure, fevers, sinus bradycardia, shock, acute hyperkalemia, acute renal failure, Coding Level of Care Code Acute Paralegal Secretary for [facility] Fwd Diagnoses Sinus bradycardia R00.1 Ileus K56.7 Poor venous access I87.8 Constipation K59.00 Acute renal failure N17.9 Hypercarbia R06.89 Acute hyperkalemia E87.5 Acute and chronic respiratory failure with hypoxia J96.21 Shock R57.9 Acute exacerbation of CHF (congestive heart failure) I50.9
[2021-11-19 14:47] LABS: Alanine Aminotransferase 33 U/L (0-41); Albumin Level 3.2 g/dL (3.5-5.2); Alkaline Phosphatase 61 IU/L (40-130); Anion Gap 16.3 (5-19); Aspartate Amino Transferase 136 U/L (0-40); Blood Urea Nitrogen 41 mg/dL (8-23); Calcium 8.8 mg/dL (8.5-10.5); Carbon Dioxide 25 mmol/L (22-29); Chloride 97 mmol/L (98-107); Globulin 3.1 g/dL (1.3-4.6); Glomerular Filtration Rate 32.4 mL/min (90-130); Glucose 160 mg/dL (65-115); Osmolality Calculated 290 mOsm/kg (285-295); Potassium 5.3 mmol/L (3.5-5.1); Sodium 133 mmol/L (136-145); Total Bilirubin 0.4 mg/dL (0.15-1.2); Total Protein 6.3 g/dL (6.6-8.7)
[2021-11-19] MEDS: propofol 1,000 MG/100 ML INJ 29.23 MG IV (15:07)
--- NOTE | 2021-11-19 15:44 | PM.CONSULT ---
Providers/Reason For Consult Consulting Physician/Specialty*: Sammy Ceron MD / Pulmonary Critical Care Reason for Consult*: low grade fevers and assist with weaning of ventilator Requesting Physician: Feng Artis MD Attending Physician: Feng Artis MD History of Present Illness History of Present Illness Byron Reilly is a 61 year old male with past medical history of SVT on sotalol, chronic low back pain on several pain medications including NSAID's, s/p surgery spinal stenosis, bilateral lower extremity edema on Lasix and recently added metolazone, acute on chronic constipation, hypertension, hyperlipidemia, type II DM, no history of CAD, history of necrotizing fasciitis a year ago requiring debridement, admitted on 11/17/2021 for severe persistent hyperkalemia secondary to renal failure leading to severe metabolic acidosis and bradycardia-resulting in intubation to protect airways and initiation of emergency dialysis. Patient has been having problems with chronic constipation for last several weeks and has been taking MiraLAX multiple times a day, visited an ER in [facility]-on 11/17/2021 for severe abdominal cramps and pains- -as he is lab work showed potassium 9.2, serum sodium 128, bicarb 23, blood sugar 237, creatinine 5.4. Upon arrival EKG showed sinus bradycardia first-degree AV block, right axis deviation, right bundle branch block, peaked T waves, QRS prolongation. He was transferred from an emergency room from there. Upon arrival initially patient was awake alert and oriented, following all commands. Plan was to place in the emergency room dialysis catheter and proceed for hemodialysis but later patient became agitated refusing to wear BiPAP and refusing to wear oxygen-developed acute encephalopathy, not following commands and sedation was made to intubate to secure airway. He is currently making good urine and nephrology is following and deciding about the sessions of hemodialysis, currently still on ventilator requiring 50% FiO2, requiring intermittent pressor support during hemodialysis, still sedated with fentanyl 150 MCG/hour and Versed 2 Mg/hour. Blood culture results are still pending and patient is on vancomycin and Zosyn. Pulmonary critical care consulted to help with weaning from the ventilator Review of Systems General: Reports: ROS unobtainable due to endotracheal tube, ROS unobtainable due to medical condition and ROS unobtainable due to mental status Medications/Allergies Home Medications Medication Instructions Recorded Confirmed Last Taken Type atorvastatin 20 mg tablet 20 mg PO QPM 11/18/21 11/18/21 Unknown History celecoxib 200 mg capsule 200 mg PO BID 11/18/21 11/18/21 Unknown History diphenhydramine HCl 25 mg tablet 25 mg PO DAILY 11/18/21 11/18/21 Unknown History furosemide 40 mg tablet 40 mg PO DAILY 11/18/21 11/18/21 Unknown History gabapentin 300 mg capsule 300 mg PO QID 11/18/21 11/18/21 Unknown History glipizide 5 mg tablet 5 mg PO BID 11/18/21 11/18/21 Unknown History hydrochlorothiazide 12.5 mg tablet 12.5 mg PO DAILY 11/18/21 11/18/21 Unknown History hydrocodone 10 mg-acetaminophen 2 tab PO Q8H 11/18/21 11/18/21 Unknown History 325 mg tablet lisinopril 10 mg tablet 10 mg PO DAILY 11/18/21 11/18/21 Unknown History montelukast 10 mg tablet 10 mg PO DAILY 11/18/21 11/18/21 Unknown History omega-3 fatty acids 1,000 mg PO DAILY 11/18/21 11/18/21 Unknown History polyethylene glycol 3350 17 gram 17 g PO DAILY 11/18/21 11/18/21 Unknown History oral powder packet sotalol 80 mg tablet 80 mg PO BID 11/18/21 11/18/21 Unknown History spironolactone 25 mg tablet 25 mg PO DAILY 11/18/21 11/18/21 Unknown History tamsulosin 0.4 mg capsule 0.4 mg PO DAILY 11/18/21 11/18/21 Unknown History triamcinolone acetonide 0.025 % 1 applic topical TID 11/18/21 11/18/21 Unknown History topical ointment Allergies Allergy/AdvReac Type Severity Reaction Status Date / Time No Known Allergies Allergy Verified 11/17/21 19:27 Current Medications Generic Name Dose Route Start Last Admin Trade Name Ceci PRN Reason Stop Dose Admin Acetaminophen 650 mg 11/17/21 18:12 11/19/21 11:59 Acetaminophen 325 Mg Tablet PO 650 mg Q6H PRN Administration Mild/Mod Pain Or Temp >/= 101 Albuterol/Ipratropium 3 ml 11/18/21 12:30 11/19/21 12:22 Ipratropium-Albuterol 3 Ml Neb INHALATION 3 ml Q4H.RESPIRATORY JANIS Administration Chlorhexidine Gluconate 1 applic 11/18/21 01:00 11/19/21 04:48 Chlorhexidine Gluconate 4% Btl 118 Ml TOPICAL 1 applic 0100 JANIS Administration Enoxaparin Sodium 40 mg 11/18/21 17:00 11/18/21 16:43 Enoxaparin 40 Mg/0.4 Ml Syringe SUBCUT 40 mg Q24H JANIS Administration Haloperidol Lactate 1 mg 11/17/21 18:52 11/17/21 19:02 Haloperidol Inj 5 Mg/Ml Inj 1 Ml IM 1 mg Q4H PRN Administration AGITATION dexmedeTOMIDine 0.9 % NaCL 400 mcg in 100 mls @ 0 mls/hr 11/17/21 19:00 11/17/21 19:30 Precedex IV 0 mcg/kg/hr .Q0M JANIS 0 mls/hr Titration Protocol Per Protocol Fentanyl 1,000 mcg/ Sodium 100 mls @ 0 mls/hr 11/17/21 19:15 11/19/21 03:42 Chloride IV 100 mcg/hr .Q0M JANIS 10 mls/hr Titration Protocol Per Protocol Propofol 1,000 mg in 100 mls @ 0 mls/hr 11/17/21 19:15 11/19/21 15:07 Diprivan IV 30 mcg/kg/min .Q0M JANIS 29.23 mls/hr Administration Protocol Per Protocol Norepinephrine Bitartrate 4 mg 254 mls @ 0 mls/hr 11/17/21 19:30 11/19/21 03:43 / Dextrose IV 0 mcg/min .Q0M JANIS 0 mls/hr Titration Protocol Per Protocol Dextrose 1,000 mls @ 50 mls/hr 11/17/21 20:00 11/18/21 16:11 D10w IV Not Given .Q20H JANIS Midazolam HCl 100 mg/ Sodium 100 mls @ 0 mls/hr 11/17/21 20:30 11/19/21 14:27 Chloride IV 0 mg/hr .Q0M JANIS 0 mls/hr Titration Protocol Per Protocol Dopamine HCl/Dextrose 400 mg in 250 mls @ 30.447 mls/hr 11/17/21 19:58 11/19/21 01:08 Intropin Drip IV 3 mcg/kg/min CONT JANIS 18.27 mls/hr Administration Protocol 5 MCG/KG/MIN Piperacillin Sod/Tazobactam 50 mls @ 12.5 mls/hr 11/19/21 10:30 11/19/21 10:46 Sod 3.375 gm/ Sodium Chloride IV 12.5 mls/hr Q8H JANIS Administration Protocol Fentanyl 2,500 mcg/ Sodium 250 mls @ 0 mls/hr 11/19/21 09:45 11/19/21 13:00 Chloride IV 80 mcg/hr .Q0M JANIS 8 mls/hr Titration Protocol Per Protocol Insulin Human Lispro 0 unit 11/18/21 08:00 11/19/21 11:36 Insulin Lispro 100 Unit/1 Ml SUBCUT 2 unit TIDWM JANIS Administration Protocol Pantoprazole Sodium 40 mg 11/17/21 18:15 11/18/21 16:52 Pantoprazole 40 Mg Sdv IVP 40 mg Q24H JANIS Administration PFSH Acute PFSH: Medical History Chronic narcotic dependence History of back pain History of hyperlipidemia History of necrotizing fasciitis History of obesity History of paroxysmal supraventricular tachycardia History of type 2 diabetes mellitus HTN (hypertension) with goal to be determined Surgical History History of back surgery Family History Father Diabetes Social History Smoking and tobacco status: former smoker Alcohol intake: never Substance/Drug Use: never Vitals/I&O/Wt Last Vital Signs Temp 99.0 F 11/19/21 08:00 Pulse 79 11/19/21 14:45 Resp 19 H 11/19/21 14:27 BP 115/56 11/19/21 14:45 Pulse Ox 95 11/19/21 14:45 O2 Del Method 11/19/21 12:22 O2 Flow Rate 6 11/17/21 18:12 FiO2 50 11/19/21 14:27 11/19/21 11/19/21 11/19/21 06:59 14:59 22:59 Intake Total 651.247 / 1940.103 347.371 / 347.371 78.59 / 425.961 Output Total 1999 1875 / 1875 Balance -1348.753 / -959.897 -1527.629 / -1527.629 78.59 / -1449.039 Weight last 48 hrs Weight 358 lb Physical Exam Narrative: PHYSICAL EXAM: General: lying in bed, sedated and intubated. HEENT:NCAT, PERRLA, EOMI Neck: Supple Lungs: Clear, Heart: s1/s2, RRR Abd: soft, NT, ND, BS + Normoactive Extremities: 1+ pitting pedal edema CONTENT MANAGEMENT CONSULTANT: sedated and limited CONTENT MANAGEMENT CONSULTANT exam possible. SKIN: no rash LDA: # CVC: Left subclavian 11/17/2021 # HD Cath : Right IJ 11/17/2021 # Leone: 11/17/2021 Urinary Catheter Management: Leone: Cath Placed During This Visit: yes Reason for Continuing Indwelling Catheter: Accurate Measurement of Urinary Output in Critically Ill Patients Urinary Catheter Date of Insertion: 11/17/21 Urinary Catheter Time of Insertion: 18:15 Data : 11/19/21 05:34 11/19/21 13:50 Other Labs: Radiology Impressions Renal Ultrasound 11/18/21 18:22 IMPRESSION: Normal renal ultrasound. Chest X-Ray 11/19/21 06:00 IMPRESSION: 1. No acute process and no significant change is previous study. 2. ET tube, central lines and enteric tube all appear to be in satisfactory position. KUB X-Ray 11/19/21 06:00 IMPRESSION: 1. No acute abdominal finding. 2. Enteric tube in the stomach probably ending in the region of the antrum. Laboratory Results WBC 9.1 10^3/uL (4.0-10.0) 11/19/21 05:34 RBC 3.97 10^6/uL (4.1-5.3) L 11/19/21 05:34 Hgb 12.0 g/dL (11.7-16.6) 11/19/21 05:34 Hct 37.0 % (42.0-52.0) L 11/19/21 05:34 MCV 93.2 fl (80-94) 11/19/21 05:34 MCH 30.2 pg (28.0-34.0) 11/19/21 05:34 MCHC 32.4 g/dL (30.0-36.0) 11/19/21 05:34 RDW 13.3 % (12.1-15.1) 11/19/21 05:34 Plt Count 125 10^3/cmm (130-400) L 11/19/21 05:34 MPV 11.2 fL (7.4-10.4) H 11/19/21 05:34 Neut % (Auto) 67.1 % 11/19/21 05:34 Lymph % (Auto) 17.0 % 11/19/21 05:34 Jenkins % (Auto) 13.8 % 11/19/21 05:34 Eos % (Auto) 1.2 % 11/19/21 05:34 Baso % (Auto) 0.2 % 11/19/21 05:34 Neut # (Auto) 6.14 10^3/uL (1.8-7.7) 11/19/21 05:34 Lymph # (Auto) 1.6 10^3/uL (0.8-4.8) 11/19/21 05:34 Jenkins # (Auto) 1.3 10^3/uL (0.2-0.9) H 11/19/21 05:34 Eos # (Auto) 0.1 10^3/uL (0.0-0.8) 11/19/21 05:34 Baso # (Auto) 0.0 10^3/uL (0.0-0.1) 11/19/21 05:34 Nucleated RBC % (auto) 0 % 11/19/21 05:34 Nucleated RBCs # 0.0 /100WBC 11/19/21 05:34 PT 13.20 SECONDS (12.1-14.9) 11/19/21 05:34 INR 0.97 (0.8-1.2) 11/19/21 05:34 Specimen Type Arterial 11/19/21 05:25 Sample Site Radial, right 11/19/21 05:25 ABG pH 7.39 (7.35-7.45) 11/19/21 05:25 ABG pCO2 42.3 mmHg (35-45) 11/19/21 05:25 ABG pO2 69.1 mmHg (80.0-100.0) L 11/19/21 05:25 ABG HCO3 25.6 mmol/L (22-26) 11/19/21 05:25 ABG O2 Saturation 97.0 11/18/21 05:17 ABG Base Excess 0.4 mmol/L (-2.0-2.0) 11/19/21 05:25 Jan Test Pos 11/19/21 05:25 A-a O2 Gradient 1.4 mmHg (5-10) L 11/18/21 05:17 Hematocrit 51.8 % (42-52) 11/19/21 05:25 Hgb O2 Saturation 95.3 % (95-100) 11/18/21 05:17 Carboxyhemoglobin 0.7 %THgb (0.4-20.1) 11/18/21 05:17 Methemoglobin 1.0 % (0.4-1.5) 11/18/21 05:17 Total Hemoglobin 12.6 g/dL (14-18) L 11/18/21 05:17 Sodium 134.0 mmol/L (131-143) 11/18/21 05:17 Potassium 5.1 mmol/L (3.5-5.0) H 11/18/21 05:17 Glucose 155.0 mg/dL (70-115) H 11/18/21 05:17 Ionized Calcium 1.3 mmol/L (1.1-1.4) 11/18/21 05:17 O2 Delivery Device Vent 11/19/21 05:25 O2 Liters/Min 6.0 % 11/17/21 18:30 FiO2 50.0 % 11/19/21 05:25 Tidal Volume 0.55 11/19/21 05:25 PEEP 10.0 cmH20 11/19/21 05:25 Assembler For Puller Over Machine ID Rolando 11/19/21 05:25 Sodium 133 mmol/L (136-145) L 11/19/21 13:50 Potassium 5.3 mmol/L (3.5-5.1) H 11/19/21 13:50 Chloride 97 mmol/L (98-107) L 11/19/21 13:50 Carbon Dioxide 25 mmol/L (22-29) 11/19/21 13:50 Anion Gap 16.3 (5-19) 11/19/21 13:50 BUN 41 mg/dL (8-23) H 11/19/21 13:50 Creatinine 2.1 mg/dL (0.7-1.2) H 11/19/21 13:50 GFR Calculation 32.4 mL/min (90-130) L 11/19/21 13:50 Glucose 160 mg/dL (65-115) H 11/19/21 13:50 POC Glucose 148 mg/dL (70-110) H 11/19/21 17:35 Estimat Average Glucose 206 11/17/21 19:00 Hemoglobin A1c 8.8 % (4.0-6.0) H 11/17/21 19:00 Calculated Osmolality 290 mOsm/kg (285-295) 11/19/21 13:50 Lactic Acid 0.8 mmol/L (0.5-2.2) 11/17/21 19:00 Lactate 1.2 mmol/L (0.5-2.2) 11/19/21 05:34 Uric Acid 8.3 mg/dL (3.4-7.0) H 11/17/21 19:05 Calcium 8.8 mg/dL (8.5-10.5) 11/19/21 13:50 Phosphorus 3.8 mg/dL (2.5-4.5) 11/19/21 05:34 Phosphorus Cancelled 11/19/21 05:34 Magnesium 2.5 mg/dL (1.7-2.3) H 11/19/21 05:34 Magnesium Cancelled 11/19/21 05:34 Iron 189 ug/dL (59-158) H 11/18/21 01:30 TIBC 338 mcg/dl 11/18/21 01:30 % Saturation 55.9 % (20-50) H 11/18/21 01:30 Unsat Iron Binding 149 ug/dL (112-347) 11/18/21 01:30 Ferritin 368 ng/mL (30-400) 11/18/21 01:30 Total Bilirubin 0.4 mg/dL (0.15-1.2) 11/19/21 13:50 GGT 49 U/L (8-61) 11/17/21 19:00 AST 136 U/L (0-40) H 11/19/21 13:50 ALT 33 U/L (0-41) 11/19/21 13:50 Alkaline Phosphatase 61 IU/L (40-130) 11/19/21 13:50 Creatine Kinase 6733 U/L (39-308) H* 11/19/21 05:34 Creatine Kinase Cancelled 11/19/21 05:34 Troponin T Baseline 33 ng/L (0-15) H 11/17/21 19:05 Troponin T 120 Minute 27.84 ng/L (0-15) H 11/17/21 21:32 Delta Troponin T -5.16 ABS# (0-10) L 11/17/21 21:32 Troponin T Hi Sens 6Hr 33.32 ng/L (0-15) H 11/18/21 01:30 Troponin T Hi Sens 6Hr Delta 0.32 ng/L (0-12) 11/18/21 01:30 C-Reactive Protein 32.3 mg/L (0.0-4.9) H 11/19/21 05:34 NT-Pro-B Natriuret Pep 372 pg/mL (0-125) H 11/19/21 05:34 NT-Pro-B Natriuret Pep Cancelled 11/19/21 05:34 Total Protein 6.3 g/dL (6.6-8.7) L 11/19/21 13:50 Albumin 3.2 g/dL (3.5-5.2) L 11/19/21 13:50 Globulin 3.1 g/dL (1.3-4.6) 11/19/21 13:50 Amylase 60 U/L (28-100) 11/17/21 19:00 Lipase 43 U/L (13-60) 11/17/21 19:00 25-OH Vitamin D Total 29 ng/mL (30-100) L 11/18/21 01:30 Procalcitonin 0.22 ng/mL (0-0.5) 11/19/21 05:34 Procalcitonin Cancelled 11/19/21 05:34 TSH 1.19 uIU/mL (0.27-4.20) 11/17/21 19:00 PTH Intact 48.2 pg/mL (15-65) 11/18/21 01:30 Calcium (PTH Intact) 9.5 mg/dL (8.5-10.5) 11/18/21 01:30 Urine Color Yellow (Yellow) 11/19/21 10:10 Urine Appearance Clear (CLEAR) 11/19/21 10:10 Urine pH 5 (5-7) 11/19/21 10:10 Ur Specific [place] 1.010 (1.005-1.030) 11/19/21 10:10 Urine Protein Neg (Negative) 11/19/21 10:10 Urine Glucose (UA) Norm (Normal) 11/19/21 10:10 Urine Ketones Negative (Negative) 11/19/21 10:10 Urine Blood 3+ (Negative) H 11/19/21 10:10 Urine Nitrate Negative (Negative) 11/19/21 10:10 Urine Bilirubin Neg (Negative) 11/19/21 10:10 Urine Urobilinogen Norm mg/dL (Negative) 11/19/21 10:10 Ur Leukocyte Esterase 2+ (Negative) H 11/19/21 10:10 Ur Microscopic Indic Cancelled 11/17/21 18:42 Urine RBC 5-10 /hpf (0-2) H 11/19/21 10:10 Urine WBC 5-10 /hpf (0-5) H 11/19/21 10:10 Ur Eosinophil Smear Not Reportable 11/17/21 18:42 Ur Squamous Epith Cells 0-4 /hpf (0-5) H 11/19/21 10:10 Amorphous Sediment Not Reportable 11/19/21 10:10 Urine Bacteria None /hpf (NONE) 11/19/21 10:10 Urine Eosinophils No eosinophils seen 11/17/21 18:42 U Random Total Protein 4 mg/dL 11/19/21 10:10 Ur Random Sodium 38 mmol/L 11/17/21 18:42 Ur Random Potassium 42 mmol/L 11/17/21 18:42 Ur Random Chloride 15 mmol/L 11/17/21 18:42 Ur Random Urea Nitrogn 524 mg/dL 11/17/21 18:42 Ur Random Calcium 2.4 mg/dL 11/17/21 18:42 Urine Creatinine 62 mg/dL (39-259) 11/19/21 10:10 Salicylates < 0.3 mg/dL (3-10) L 11/17/21 19:00 Urine Opiates Screen Positive ng/mL (Negative) H 11/17/21 18:42 Ur Barbiturates Screen Negative ng/mL (Negative) 11/17/21 18:42 Ur Phencyclidine Scrn Negative ng/mL (Negative) 11/17/21 18:42 Ur Amphetamines Screen Negative ng/mL (Negative) 11/17/21 18:42 U Benzodiazepines Scrn Negative ng/mL (Negative) 11/17/21 18:42 Urine Cocaine Screen Negative ng/mL (Negative) 11/17/21 18:42 U Marijuana (THC) Screen Negative ng/mL (Negative) 11/17/21 18:42 Coronavirus 229E (PCR) Not detected (NOT DETECT) 11/19/21 09:45 Hep Bs Antigen Non-reactive (Nonreactive) 11/17/21 19:05 Hep Bs Antibody 3.5 (11.5-1000) L 11/17/21 19:05 Hepatitis C Antibody Non-reactive (Nonreactive) 11/17/21 19:05 Influenza Type A Ag Negative (Negative) 11/19/21 10:10 Influenza Type B Ag Negative (Negative) 11/19/21 10:10 SARS-CoV-2 (PCR) Not detected (NOT DETECT) 11/19/21 09:45 Anti-Streptolysin O Ab <50 IU/mL (<200) 11/17/21 21:32 Micro: Microbiology 11/18/21 07:49 Gram Stain - Final Sputum - Endotracheal Tube Aspirate Sputum Culture - Preliminary 11/19/21 09:02 Blood Culture - Preliminary Blood SPECIMEN COLLECTED 11/19/21 08:50 Blood Culture - Preliminary Blood SPECIMEN COLLECTED 11/17/21 18:42 Urine Culture - Final Urine Catheterized 11/17/21 21:32 Blood Culture - Preliminary Blood NEGATIVE TO DATE 11/17/21 21:28 Blood Culture - Preliminary Blood NEGATIVE TO DATE A&P Assessment and plan (1) Acute and chronic respiratory failure with hypoxia: Status: Acute (2) Acute renal failure: Status: Acute (3) Acute hyperkalemia: Status: Acute (4) History of paroxysmal supraventricular tachycardia: Status: Acute (5) Difficult ventilator weaning: Status: Acute Plan #Acute encephalopathy-secondary to possible uremic encephalopathy versus hypercapnic CO2 narcosis -Currently patient is sedated with fentanyl and Versed -BUN has improved after hemodialysis and CO2 improved from ventilation #Acute acute hypercapnic respiratory failure in patient with fluid overload secondary to ESMER -Currently on ventilator CMV-550/PEEP 10/FiO2 50%-ABG 7.3 /69/25 -Chest X-Ray 11/19/21 06:00IMPRESSION:1. No acute process and no significant change is previous study. -Sedated with fentanyl 150 MCG/hour and Versed 2 MCG/hour-recommended to discontinue Versed and taper down fentanyl ; can initiate Precedex if needed-monitor for bradycardia -We will start doing awakening trial and breathing trials # acute hyperkalemia-secondary to acute renal failure likely secondary to NSAID's/diuretics #Rhabdomyolysis CK 6733 -Received 2 dialysis sessions so far -Good urine output-today electrolytes are acceptable -Nephrology to follow-up -We will plan for weaning trial tomorrow after dialysis session -We will monitor CK, renal functions #Low-grade fevers - suspect aspiration -Low procalcitonin, white count 9.2K, blood cultures and sputum cultures negative so far, -Currently on vancomycin and Zosyn -Monitor fever and white counts ICU CHECKLIST: Problem list updated Verbal orders reviewed and signed Analgesia: fentanyl Glycemic Control: insulin scale coverage Nutrition: NPO Restraint Renewal (within 24 hrs): Yes Ulcer Prophylaxis: PPI Chemical Thromboprophylaxis: Prophylaxis:Lovenox Mechanical Thromboprophylaxis: SCD Need for Central line: For vasopressors Need for Leone catheter: Uine output monitoring Critical Care Time (No Overlap): 55 min This patient has a high probability of sudden, clinically significant deterioration, which requires the highest level of physician preparedness to intervene urgently. I managed/supervised life or organ supporting interventions that required frequent physician assessment. I devoted my full attention in the ICU to the direct care of this patient for the period of time indicated above. Time I spent with family or surrogate(s) is included only if the patient was incapable of providing necessary information or participating in decision making. Time devoted to teaching and to any procedures I billed separately is not included. Services Provided: Telemetry review Mechanical Ventilation Hemodynamic interpretation, assessment and management Review and interpretation of CXR Review and interpretation of lab values Review and interpretation of microbiologic data and culture results Review of medications and administration Review and interpretation of Nutrition requirements and management Discussion of management with other consultants and services Clinical update to family members Consult Attestations Medical Necessity Statement: Patient currently intubated and mechanically ventilated for respiratory support-we will plan for extubation next 24 to 48 hours Time Spent in Patient Care: Greater than 35 minutes (>than 50% of time spent in counselling and/or direct pt care on unit). Critical Care Time: The high probability of a clinically significant, sudden or life threatening deterioration of the patient's [pulmonary, renal, infectious] system(s) required my full and direct attention, intervention and personal management. The critical care time is as shown. This time is in addition to time spent performing any reported procedures but includes the following: [x] Data and vital sign review and interpretation [x] Patient assessment, examination and intervention [x] Documentation [x] Medication orders and management Critical Care Time (min): 55 Coding Level of Care Code New Pt Acute Bread Icer for Chg Fwd Patient Type New History Comprehensive Exam Comprehensive Medical Decision Making High Complexity Diagnoses Acute and chronic respiratory failure with hypoxia J96.21 Acute renal failure N17.9 Acute hyperkalemia E87.5 History of paroxysmal supraventricular tachycardia Z86.79 Difficult ventilator weaning Z99.11 Time Spent (min) 55
[2021-11-19 17:42] LABS: Glucose Point of Care 148 mg/dL (70-110)
[2021-11-19] MEDS: pantoprazole 40 mg SDV IVP (17:49)
[2021-11-19] MEDS: enoxaparin 40 mg/0.4 mL Syringe SUBCUT (17:49)
[2021-11-19 18:58] LABS: Anti-Double Strand DNA AB <1 IU/mL
[2021-11-19] MEDS: propofol 1,000 MG/100 ML INJ 24.36 MG IV ×2 (19:51→23:18)
--- NOTE | 2021-11-19 20:41 | P.PN_ITS ---
Subjective Subjective: Patient is still remaining intubated. Telemetry shows sinus rhythm. No arrhythmias are noted. Medications: Medication Review Details: Current Medications Acetaminophen (Acetaminophen 325 Mg Tablet) 650 mg PO Q6H PRN PRN Reason: Mild/Mod Pain Or Temp >/= 101 Last Admin: 11/19/21 18:03 Dose: 650 mg Albuterol/Ipratropium (Ipratropium-Albuterol 3 Ml Neb) 3 ml INHALATION Q4H.RESPIRATORY JANIS Last Admin: 11/19/21 16:10 Dose: 3 ml Chlorhexidine Gluconate (Chlorhexidine Gluconate 4% Btl 118 Ml) 1 applic TOPI BALBINA 0100 JANIS Last Admin: 11/19/21 04:48 Dose: 1 applic Dextrose (Dextrose 50% Syringe 50 Ml) 25 ml IVP ONCE PRN; Protocol PRN Reason: hypoglycemia protocol Dextrose (Dextrose 50% Syringe 50 Ml) 50 ml IVP PRN PRN; Protocol PRN Reason: hypoglycemia protocol Enoxaparin Sodium (Enoxaparin 40 Mg/0.4 Ml Syringe) 40 mg SUBCUT Q24H JANIS Last Admin: 11/19/21 17:49 Dose: 40 mg Glucagon (Glucagon 1 Mg/Ml Inj 1 Ml) 1 mg IM ONCE PRN; Protocol PRN Reason: Adult Acute Hypoglycemia Prot. Haloperidol Lactate (Haloperidol Inj 5 Mg/Ml Inj 1 Ml) 1 mg IM Q4H PRN PRN Reason: AGITATION Last Admin: 11/17/21 19:02 Dose: 1 mg Dextrose (D5w) 500 mls @ 100 mls/hr IV ONCE PRN; Protocol PRN Reason: Adult Acute Hypoglycemia Prot dexmedeTOMIDine 0.9 % NaCL (Precedex) 400 mcg in 100 mls @ 0 mls/hr IV .Q0M JANIS; Protocol Last Titration: 11/17/21 19:30 Dose: 0 mcg/kg/hr, 0 mls/hr Fentanyl 1,000 mcg/ Sodium (Chloride) 100 mls @ 0 mls/hr IV .Q0M JANIS; Protocol Last Titration: 11/19/21 03:42 Dose: 100 mcg/hr, 10 mls/hr Propofol (Diprivan) 1,000 mg in 100 mls @ 0 mls/hr IV .Q0M JANIS; Protocol Last Admin: 11/19/21 19:51 Dose: 25 mcg/kg/min, 24.36 mls/hr Norepinephrine Bitartrate 4 mg (/ Dextrose) 254 mls @ 0 mls/hr IV .Q0M JANIS; Protocol Last Titration: 11/19/21 03:43 Dose: 0 mcg/min, 0 mls/hr Midazolam HCl 100 mg/ Sodium (Chloride) 100 mls @ 0 mls/hr IV .Q0M JANIS; Protocol Last Titration: 11/19/21 14:27 Dose: 0 mg/hr, 0 mls/hr Dopamine HCl/Dextrose (Intropin Drip) 400 mg in 250 mls @ 30.447 mls/hr IV CONT JANIS; Protocol Last Admin: 11/19/21 01:08 Dose: 3 mcg/kg/min, 18.27 mls/hr Piperacillin Sod/Tazobactam (Sod 3.375 gm/ Sodium Chloride) 50 mls @ 12.5 mls/hr IV Q8H JANIS; Protocol Last Admin: 11/19/21 17:48 Dose: 12.5 mls/hr Fentanyl 2,500 mcg/ Sodium (Chloride) 250 mls @ 0 mls/hr IV .Q0M JANIS; Protocol Last Titration: 11/19/21 13:00 Dose: 80 mcg/hr, 8 mls/hr Vancomycin HCl 1,500 mg/ (Sodium Chloride) 250 mls @ 166.667 mls/hr IV Q18H JANIS Insulin Human Lispro (Insulin Lispro 100 Unit/1 Ml) 0 unit SUBCUT TIDWM JANIS; Protocol Last Admin: 11/19/21 17:49 Dose: 2 unit Morphine Sulfate (Morphine 4 Mg/Ml Sdv 1 Ml) 2 mg IVP Q4H PRN PRN Reason: SEVERE PAIN Naloxone HCl (Naloxone 0.4 Mg/Ml Sdv) 0.1 mg IVP Q2M PRN PRN Reason: OPIATERV Ondansetron HCl (Ondansetron 2 Mg/Ml Sdv 2 Ml) 4 mg IVP Q8H PRN PRN Reason: vomiting, or N/V if npo Pantoprazole Sodium (Pantoprazole 40 Mg Sdv) 40 mg IVP Q24H JANIS Last Admin: 11/19/21 17:49 Dose: 40 mg Senna/Docusate Sodium (Sennosides-Docusate Tablet) 2 tab OG-TUBE DAILY JANIS Vitals/I&O/Wt Last Vital Signs Temp 102.0 F H 11/19/21 19:15 Pulse 84 11/19/21 17:45 Resp 21 H 11/19/21 16:13 BP 145/76 11/19/21 17:45 Pulse Ox 95 11/19/21 17:00 O2 Del Method 11/19/21 16:12 O2 Flow Rate 6 11/17/21 18:12 FiO2 45 11/19/21 16:13 11/19/21 11/19/21 11/19/21 06:59 14:59 22:59 Intake Total 651.247 / 1940.103 397.371 / 397.371 178.59 / 575.961 Output Total 1999 / 0 1875 / 1875 975 / 2850 Balance -1348.753 / -959.897 -1477.629 / -1477.629 -796.41 / -2274.039 Weight last 48 hrs Weight 368 lb Physical Exam Narrative: GENERAL: The patient is in debated and sedated HEENT: No significant pallor, icterus or lymphadenopathy.Oral cavity: There are no mucous membrane lesions. NECK: Trachea appears to be central. No masses noted. No JVD or thyromegaly appreciated. RESPIRATORY: Chest is symmetrical. No intercostals muscle retraction or any accessory muscle activation. There is no chest wall tenderness. Breath sounds are heard bilaterally. No rales or rhonchi heard. No evidence of any consolidation. BREASTS: Deferred. HEART: The heart sounds are normal. No S3 or S4. No significant murmurs. No pericardial rub ABDOMEN: No vessel pulsations or distention. No tenderness. No organomegaly appreciated. Bowel sounds are normally heard. : Deferred. RECTAL: Deferred. LYMPHATIC: No lymphadenopathy noted in the neck. EXTREMITIES: No edema or cyanosis. No clubbing. MUSCULOSKELETAL: No acute joint deformities or swelling SKIN: There are no significant rashes or ecchymosis NEUROPSYCHIATRIC: Patient is intubated and sedated Urinary Catheter Management: Leone: Cath Placed During This Visit: yes Reason for Continuing Indwelling Catheter: Accurate Measurement of Urinary Output in Critically Ill Patients Urinary Catheter Date of Insertion: 11/17/21 Urinary Catheter Time of Insertion: 18:15 Data : 11/19/21 05:34 11/19/21 13:50 Micro: Microbiology 11/18/21 07:49 Gram Stain - Final Sputum - Endotracheal Tube Aspirate Sputum Culture - Preliminary 11/19/21 09:02 Blood Culture - Preliminary Blood SPECIMEN COLLECTED 11/19/21 08:50 Blood Culture - Preliminary Blood SPECIMEN COLLECTED 11/17/21 18:42 Urine Culture - Final Urine Catheterized 11/17/21 21:32 Blood Culture - Preliminary Blood NEGATIVE TO DATE 11/17/21 21:28 Blood Culture - Preliminary Blood NEGATIVE TO DATE A&P Assessment and plan (1) Bradycardia: Patient's bradycardia most likely related to the acute renal failure/hyperkalemia , multiple electrolyte imbalance and medication (sotalol). He has a questionable history of atrial fibrillation. He may have an underlying sinus node dysfunction as well. Currently the patient seems to be in sinus rhythm. At this point, the patient did not require any further investigations or interventions. Continue on the current treatment measures. Status: Acute (2) Hypotension: Currently the patient is normotensive. He is off all the vasopressors. Status: Acute (3) Acute renal failure: Had 2 sessions of dialysis. Nephrology is on the case Status: Acute (4) Acute hyperkalemia: A potassium level is back to normal. Status: Acute (5) Hypercarbia: Patient is on the ventilator. Oxygenation seems to be appropriate at this time. Status: Acute (6) History of paroxysmal supraventricular tachycardia: We will be closely monitoring the rhythm on the monitor. May restart the Betapace, if the kidney function returns to normal Status: Acute Plan Since the patient's her cardiovascular status seems to be stable, he may not require any active follow-up at this point. I may sign off at this time. Please feel free to contact me with any further questions Attestations Medical Necessity Statement*: Position as per the primary Coding Level of Care Code Acute Account Review Specialist for Chg Fwd History Expanded Problem Focused Exam Expanded Problem Focused Medical Decision Making Low Complexity Diagnoses Bradycardia R00.1 Hypotension I95.9 Acute renal failure N17.9 Acute hyperkalemia E87.5 Hypercarbia R06.89 History of paroxysmal supraventricular tachycardia Z86.79
--- NOTE | 2021-11-19 20:52 | PC.NURSE ---
Fentanyl infusing at 60mcg/hr at 1900, unable to enter dose into MAR as of writing this note. Scanned new bag of Fentanyl which was already running at start of shift.
[2021-11-19] MEDS: acetaminophen 1,000 MG/100 ML PIGGYBACK 400 MG IV (21:58)
[2021-11-19 23:31] LABS: Glucose Point of Care 134 mg/dL (70-110)
[2021-11-20] VITALS (111 sets, daily range): BP systolic 101–160; BP diastolic 55–87; PULSE 79–107; RESP 14–21; TEMP 37.3–38.5; O2SAT 90–97
[2021-11-20] MEDS: ipratropium-albuterol 3 mL Neb INHALATION ×7 (00:12→23:40)
[2021-11-20] MEDS: ibuprofen Oral Susp 100 mg/5mL UDC 600 MG NG-TUBE (01:14)
--- NOTE | 2021-11-20 01:25 | PC.NURSE ---
Patient chewing on ETT, uptitrating propofol for comfort.
[2021-11-20] MEDS: piperacillin-tazobactam 3.375 GM in sodium chloride 0.9% (plus) 50 ML IV (02:52)
[2021-11-20] MEDS: propofol 1,000 MG/100 ML INJ 34.1 MG IV (02:52)
[2021-11-20 03:03] LABS: Basophils % 0.3 %; Eosinophils # 0.1 10^3/uL (0.0-0.8); Eosinophils % 0.8 %; Hematocrit 35.7 % (42.0-52.0); Hemoglobin 11.8 g/dL (11.7-16.6); Lymphocytes # 1.3 10^3/uL (0.8-4.8); Lymphocytes % 10.9 %; Mean Corpuscular HGB Conc 33.1 g/dL (30.0-36.0); Mean Corpuscular Hemoglobin 29.9 pg (28.0-34.0); Mean Corpuscular Volume 90.4 fl (80-94); Mean Platelet Volume 11.4 fL (7.4-10.4); Monocytes # 1.6 10^3/uL (0.2-0.9); Monocytes % 13.2 %; Neutrophils # 8.79 10^3/uL (1.8-7.7); Neutrophils % 74.2 %; Nucleated Red Blood Cells % 0 %; Platelet Count 125 10^3/cmm (130-400); Red Blood Count 3.95 10^6/uL (4.1-5.3); Red Cell Distribution Width 13.3 % (12.1-15.1); White Blood Count 11.8 10^3/uL (4.0-10.0)
[2021-11-20 03:26] LABS: INR 0.99 (0.8-1.2)
[2021-11-20 03:29] LABS: Lactate (Lactic Acid level) 1.4 mmol/L (0.5-2.2)
[2021-11-20 05:01] LABS: NT Pro B Type Natriuretic Pept 412 pg/mL (0-125); Procalcitonin 0.29 ng/mL (0-0.5)
[2021-11-20 05:13] LABS: Alanine Aminotransferase 38 U/L (0-41); Albumin Level 3.6 g/dL (3.5-5.2); Alkaline Phosphatase 61 IU/L (40-130); Aspartate Amino Transferase 169 U/L (0-40); Blood Urea Nitrogen 43 mg/dL (8-23); C Reactive Protein 84.4 mg/L (0.0-4.9); Calcium 9.1 mg/dL (8.5-10.5); Carbon Dioxide 23 mmol/L (22-29); Chloride 97 mmol/L (98-107); Glomerular Filtration Rate 30.7 mL/min (90-130); Glucose 167 mg/dL (65-115); Magnesium 2.2 mg/dL (1.7-2.3); Osmolality Calculated 295 mOsm/kg (285-295); Phosphorus 5.2 mg/dL (2.5-4.5); Sodium 135 mmol/L (136-145); Total Bilirubin 0.6 mg/dL (0.15-1.2); Total Protein 6.6 g/dL (6.6-8.7)
[2021-11-20] MEDS: propofol 1,000 MG/100 ML INJ 29.23 MG IV ×2 (05:22→11:44)
[2021-11-20 05:31] LABS: Creatine Phosphokinase 6511 U/L (39-308)
[2021-11-20 06:09] LABS: ABG PCO2 38.7 mmHg (35-45); ABG PH Result 7.42 (7.35-7.45); Arterial Blood Gas Hematocrit 38.2 % (42-52); Base Excess ABG 0.9 mmol/L (-2.0-2.0); Blood Gas Allen Test Pos; Blood Gas Operator Identificat JB; Blood Gas Sample Site Radial, right; Blood Gas Sample Type Arterial; Blood Gas Tidal Volume 0.55; HCO3 ABG 25.3 mmol/L (22-26); Oxygen Device VENT
--- NOTE | 2021-11-20 07:00 | XRR_ITS ---
PROCEDURE INFORMATION: Exam: XR Chest Exam date and time: 11/20/2021 4:09 AM Age: 61 years old Clinical indication: Shortness of breath; Patient HX: F/u resp failure. Intubated. ; Additional info: SOB TECHNIQUE: Imaging protocol: Radiologic exam of the chest. Views: 1 view. COMPARISON: CR XR chest 1V portable [id number] 11/19/2021 5:13 AM FINDINGS: Tubes, catheters and devices: Endotracheal tube is seen in place without change. Nasogastric tube is seen with tip not visualized on the exam. Left subclavian central venous catheter and right internal jugular dialysis catheter seen without change. Multiple leads are seen overlying the chest, which limits assessment. Lungs: There are unchanged lung volumes. Unchanged mild perihilar interstitial opacities are seen with some left basilar airspace opacities. Unchanged small left and tiny right pleural effusions. Pleural spaces: No pneumothorax. Heart/Mediastinum: The heart size is unchanged. The mediastinal contour is normal. The trachea is in the midline. Bones/joints: No acute abnormalities. XR/XR chest 1V portable [id number] IMPRESSION: No significant change in correlation with the prior chest radiograph dated November 19, 2021.
--- NOTE | 2021-11-20 07:08 | PM.PN ---
Subjective Subjective: sedated, intubated. is urinating Medications: Reviewed: Yes Medication Review Details: Current Medications Acetaminophen (Acetaminophen 325 Mg Tablet) 650 mg PO Q6H PRN PRN Reason: Mild/Mod Pain Or Temp >/= 101 Last Admin: 11/19/21 18:03 Dose: 650 mg Albuterol/Ipratropium (Ipratropium-Albuterol 3 Ml Neb) 3 ml INHALATION Q4H.RESPIRATORY JANIS Last Admin: 11/20/21 03:42 Dose: 3 ml Chlorhexidine Gluconate (Chlorhexidine Gluconate 4% Btl 118 Ml) 1 applic TOPICAL 0100 JANIS Last Admin: 11/19/21 04:48 Dose: 1 applic Dextrose (Dextrose 50% Syringe 50 Ml) 25 ml IVP ONCE PRN; Protocol PRN Reason: hypoglycemia protocol Dextrose (Dextrose 50% Syringe 50 Ml) 50 ml IVP PRN PRN; Protocol PRN Reason: hypoglycemia protocol Enoxaparin Sodium (Enoxaparin 40 Mg/0.4 Ml Syringe) 40 mg SUBCUT Q24H JANIS Last Admin: 11/19/21 17:49 Dose: 40 mg Glucagon (Glucagon 1 Mg/Ml Inj 1 Ml) 1 mg IM ONCE PRN; Protocol PRN Reason: Adult Acute Hypoglycemia Prot. Haloperidol Lactate (Haloperidol Inj 5 Mg/Ml Inj 1 Ml) 1 mg IM Q4H PRN PRN Reason: AGITATION Last Admin: 11/17/21 19:02 Dose: 1 mg Dextrose (D5w) 500 mls @ 100 mls/hr IV ONCE PRN; Protocol PRN Reason: Adult Acute Hypoglycemia Prot dexmedeTOMIDine 0.9 % NaCL (Precedex) 400 mcg in 100 mls @ 0 mls/hr IV .Q0M JANIS; Protocol Last Titration: 11/17/21 19:30 Dose: 0 mcg/kg/hr, 0 mls/hr Fentanyl 1,000 mcg/ Sodium (Chloride) 100 mls @ 0 mls/hr IV .Q0M JANIS; Protocol Last Titration: 11/20/21 01:26 Dose: Infused Propofol (Diprivan) 1,000 mg in 100 mls @ 0 mls/hr IV .Q0M JANIS; Protocol Last Admin: 11/20/21 05:22 Dose: 30 mcg/kg/min, 29.23 mls/hr Norepinephrine Bitartrate 4 mg (/ Dextrose) 254 mls @ 0 mls/hr IV .Q0M JANIS; Protocol Last Titration: 11/19/21 03:43 Dose: 0 mcg/min, 0 mls/hr Midazolam HCl 100 mg/ Sodium (Chloride) 100 mls @ 0 mls/hr IV .Q0M JANIS; Protocol Last Titration: 11/19/21 14:27 Dose: 0 mg/hr, 0 mls/hr Dopamine HCl/Dextrose (Intropin Drip) 400 mg in 250 mls @ 30.447 mls/hr IV CONT JANIS; Protocol Last Admin: 11/19/21 01:08 Dose: 3 mcg/kg/min, 18.27 mls/hr Piperacillin Sod/Tazobactam (Sod 3.375 gm/ Sodium Chloride) 50 mls @ 12.5 mls/hr IV Q8H JANIS; Protocol Last Admin: 11/20/21 02:52 Dose: 12.5 mls/hr Fentanyl 2,500 mcg/ Sodium (Chloride) 250 mls @ 0 mls/hr IV .Q0M JANIS; Protocol Last Admin: 11/19/21 20:51 Dose: 75 mcg/hr, 7.5 mls/hr Vancomycin HCl 1,500 mg/ (Sodium Chloride) 250 mls @ 166.667 mls/hr IV Q18H JANIS Last Infusion: 11/20/21 06:23 Dose: Infused Insulin Human Lispro (Insulin Lispro 100 Unit/1 Ml) 0 unit SUBCUT TIDWM JANIS; Protocol Last Admin: 11/19/21 17:49 Dose: 2 unit Morphine Sulfate (Morphine 4 Mg/Ml Sdv 1 Ml) 2 mg IVP Q4H PRN PRN Reason: SEVERE PAIN Naloxone HCl (Naloxone 0.4 Mg/Ml Sdv) 0.1 mg IVP Q2M PRN PRN Reason: OPIATERV Ondansetron HCl (Ondansetron 2 Mg/Ml Sdv 2 Ml) 4 mg IVP Q8H PRN PRN Reason: vomiting, or N/V if npo Pantoprazole Sodium (Pantoprazole 40 Mg Sdv) 40 mg IVP Q24H JANIS Last Admin: 11/19/21 17:49 Dose: 40 mg Senna/Docusate Sodium (Sennosides-Docusate Tablet) 2 tab OG-TUBE DAILY JANIS Vitals/I&O/Wt Last Vital Signs Temp 100.1 F H 11/20/21 04:36 Pulse 83 11/20/21 06:45 Resp 18 11/20/21 06:00 BP 128/58 11/20/21 06:45 Pulse Ox 95 11/20/21 06:30 O2 Del Method 11/20/21 04:00 O2 Flow Rate 6 11/17/21 18:12 FiO2 35 11/20/21 06:00 11/19/21 11/20/21 11/20/21 22:59 06:59 14:59 Intake Total 471.882 / 869.253 579.292 / 1448.545 Output Total 975 / 2850 Balance -503.118 / -1980.747 579.292 / -1401.455 Weight last 48 hrs Weight 166.06 kg Weight 166.922 kg Physical Exam Narrative: obese, intubated - fio2=35%/ PEEP 10/ TV 550 febrile heent- nc/at, eomi neck supple, rt sided dialysis catheter lungs crackles heart reg, +YASMINE abd soft, distended, low BS ext b/l edema improving + collins neuro- sedated Urinary Catheter Management: Collins: Cath Placed During This Visit: yes Reason for Continuing Indwelling Catheter: Accurate Measurement of Urinary Output in Critically Ill Patients Urinary Catheter Date of Insertion: 11/17/21 Urinary Catheter Time of Insertion: 18:15 Data : 11/20/21 02:19 11/20/21 02:19 Micro: Microbiology 11/18/21 07:49 Gram Stain - Final Sputum - Endotracheal Tube Aspirate Sputum Culture - Preliminary 11/19/21 09:02 Blood Culture - Preliminary Blood SPECIMEN COLLECTED 11/19/21 08:50 Blood Culture - Preliminary Blood SPECIMEN COLLECTED 11/17/21 18:42 Urine Culture - Final Urine Catheterized A&P Assessment and plan (1) Acute renal failure: 61 yr old man Obesity, DM, SVT, CHF, back pain A. Fevers per medicine 1. s/p intubation and cardiac arrest- s/p HD- off pressors -wean vent per pulm / medicine 2. ESMER- likely from diuretics and celebrex -renal us -rt 11.8 cm, left 11. 4 cm -ua -negative ur na 38 -ur eos, pr, cr pending - serologies pending review laxatives for possible phosphorus containing laxative -s/p emergent HD x 2 - Dr Rivas placed a right IJ dialysis access -informed consent for Hemodialysis and for telehealth visit obtained from pts -hold hd and monitor uop. -cont lasix 3. balanced acid/ base status 4 .hyperkalemia- monitor s/p HD x 2 -k improved to 5 5. hyponatremia from ESMER- monitor w/ dialysis -improved to 135 6 . DM care per medicine 7 . hypercalcemia- can be from med treatment given to him to treat his hyperkalemia. -ca improved -phos improved -normal pth and vit d level 29- can replete 8. 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 Coding Level of Care Code Acute Financial Analysis Advisor for Luis Eduardo Kelley Diagnoses Acute renal failure N17.9
[2021-11-20 07:23] LABS: Osmolality Urine 390 mOsm/kg (50-1200)
--- NOTE | 2021-11-20 07:26 | CT_ITS ---
WS: [id number] CT HEAD TECHNIQUE: Noncontrast CT of the head obtained from the skullbase to the vertex. CLINICAL INFORMATION: fever COMPARISON: None. DLP: 1223.[address] scans at [facility] use at least one of these dose optimization techniques: automated e xposure control; mA and/or kV adjustment per patient size (includes targeted exams where dose is matc hed to clinical indication); or iterative reconstruction. FINDINGS: Some images are degraded by beam hardening artifact No evidence of intracranial hemorrhage or mass effect. Ventricular system and basal cisterns are solo nt. Mild small vessel changes with moderate parenchymal volume loss. No extra-axial fluid collections . No evidence of mass or mass effect. Mild mucosal thickening in the paranasal sinuses. Partial opacification of the ethmoid air cells. Air -fluid level in the RIGHT frontal sinus opacification the frontal ethmoidal recess. Mild mucosal thic kening in the mastoid air cells. Secretions in the posterior nasopharynx. CT/CT head wo con* [id number] IMPRESSION: Some images degraded by beam hardening artifact 1. No evidence of intracranial hemorrhage or mass effect. 2. Mild small vessel changes with moderate parenchymal volume loss. 3. Intracranial vascular calcification. 4. Fluid and secretions within the paranasal sinuses. 5. No acute intracranial findings.
--- NOTE | 2021-11-20 07:26 | CT_ITS ---
WS: [id number] CT CHEST, ABDOMEN, AND PELVIS TECHNIQUE: Noncontrast CT of the chest, abdomen, and pelvis with coronal and sagittal reformatted carlene ges. CLINICAL INFORMATION: fever COMPARISON: None. DLP: 1538.[address] scans at [facility] use at least one of these dose optimization techniques: automated e xposure control; mA and/or kV adjustment per patient size (includes targeted exams where dose is matc hed to clinical indication); or iterative reconstruction. FINDINGS: Images degraded due to beam hardening artifact from overlying wires and appliances. CT CHEST: Small bilateral pleural effusions. Compressive atelectasis in the lung bases endotracheal tube above the nikia. Enteric tube in the distal 2nd part of the duodenum. Normal caliber thoracic aorta. Coron burton calcification. Cardiomegaly. No axillary lymphadenopathy. CT ABDOMEN AND PELVIS: Noncontrast liver is normal. Normal noncontrast spleen. Mild fluid distention of the gallbladder whic h is otherwise unremarkable. Normal GE junction. Noncontrast pancreas appears normal. Normal caliber abdominal aorta. Mild aortic calcification. Adrenal glands are normal. Mild bilateral renal cortical atrophy. No hydronephrosis. Leone catheter. Fat-containing umbilical hernia. Mild recto sigmoid constipation. No evidence of high -grade small or large bowel obstruction. Mild thoracic curve and thoracic kyphosis. Hypertrophic kothari ges thoracic spine. Postoperative changes L4-S1 pedicle screw fixation with laminectomy defects. CT/[place] [id number] IMPRESSION: 1. Small bilateral pleural effusions with compressive atelectasis in the lung bases with air bronchograms. Recommend Correlation for pneumonia. 2. Endotracheal tube with tip above the nikia. 3. Slightly prominent fluid distended gallbladder which is otherwise normal in appearance. This can be followed up with ultrasound. 4. No hydronephrosis in either kidney. Mild renal cortical atrophy. 5. Mild rectosigmoid constipation. 6. Leone catheter. 7. No fluid collections in the abdomen or pelvis 8. Fat-containing umbilical hernia.
[2021-11-20 07:48] LABS: Glucose Point of Care 156 mg/dL (70-110)
[2021-11-20] MEDS: sennosides-docusate Tablet 2 TAB OG-TUBE (07:59)
[2021-11-20] MEDS: FUROsemide 10 mg/mL SDV 4mL 40 MG IVP ×2 (07:59→20:09)
[2021-11-20] MEDS: insulin lispro 100 unit/1 mL SUBCUT ×3 (07:59→17:08)
[2021-11-20] MEDS: propofol 1,000 MG/100 ML INJ 24.36 MG IV ×2 (08:46→20:13)
[2021-11-20] MEDS: linezolid premix 600 MG/300 ML PREMIX 300 MG IV ×2 (09:24→23:10)
[2021-11-20] MEDS: gabapentin 300 mg Capsule PO ×3 (09:24→20:09)
[2021-11-20] MEDS: HYDROcodone-acetaminophen 10-325 mg Tablet 1 TAB PO ×2 (09:24→17:04)
[2021-11-20] MEDS: sertraline 50 mg Tablet PO (09:24)
--- NOTE | 2021-11-20 09:37 | PC.NURSE ---
Wasted 96.2ml versed with MARLON HERNANDEZ.
[2021-11-20 10:33] LABS: Anti-Nuclear Antibody Screen NEGATIVE (NEGATIVE)
[2021-11-20 11:11] LABS: Glucose Point of Care 286 mg/dL (70-110)
[2021-11-20 11:11] LABS: Glucose Point of Care 203 mg/dL (70-110)
--- NOTE | 2021-11-20 11:57 | US_ITS ---
WS: [id number] RIGHT UPPER QUADRANT ULTRASOUND HISTORY: RIGHT upper quadrant pain. Evaluate for cholecystitis. COMPARISON: 11/18/2021 Liver: 15.2 cm in length. Liver is normal size but very dense. The entire liver is not seen due to at tenuation and marked hepatic steatosis. Portal Vein: Not visualized. Gallbladder: Normally distended gallbladder with no stones or wall thickening. CBD: 0.6 cm Pancreas: Not well visualized. Right kidney: 11.9 cm in length. Normal size and echogenicity. No hydronephrosis or mass. Aorta and IVC: Poorly visualized. No ascites. US/US gall bladder [id number] IMPRESSION: 1. Gallbladder is normally distended with no stones or pericholecystic fluid. 2. Normal common bile duct. 3. Marked hepatic steatosis.
--- NOTE | 2021-11-20 14:26 | P.PN_ITS ---
Subjective Subjective: -Patient is currently still intubated on mechanical ventilator- currently on fentanyl 50 MCG/hour and propofol 40 MCG/hour-opening eyes spontaneously -Good urine output and electrolytes are within acceptable limits-no plans for hemodialysis today -Vent requirements are coming down-currently requiring FiO2 35% and PEEP of 8 and saturating 94% -Overnight had persistent fevers-antibiotics changed from vancomycin/Zosyn to linezolid/imipenem; CT head no acute changes, CT abdomen pelvis-did not show any infectious source, CT chest showed dependent atelectasis with air bronchograms -Family reported he has allergies to clindamycin and Flagyl -other labs and imaging reviewed Medications: Reviewed: Yes Vitals/I&O/Wt Last Vital Signs Temp 99.4 F 11/20/21 12:15 Pulse 96 11/20/21 14:00 Resp 18 11/20/21 13:00 BP 157/87 11/20/21 13:00 Pulse Ox 94 11/20/21 13:00 O2 Del Method 11/20/21 12:53 O2 Flow Rate 6 11/17/21 18:12 FiO2 35 11/20/21 13:00 11/19/21 11/20/21 11/20/21 22:59 06:59 14:59 Intake Total 471.882 / 869.253 579.292 / 0276.811 5739.589 / 1519.589 Output Total 975 / 2850 1100 / 1100 Balance -503.118 / -1980.747 579.292 / -1401.455 419.589 / 419.589 Weight last 48 hrs Weight 366 lb 1.6 oz Weight 368 lb Physical Exam Narrative: PHYSICAL EXAM: General: lying in bed, sedated and intubated. 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 SKIN: no rash LDA: # CVC: Left subclavian 11/17/2021 # HD Cath : Right IJ 11/17/2021 # Leone: 11/17/2021 Urinary Catheter Management: Leone: Cath Placed During This Visit: yes Reason for Continuing Indwelling Catheter: Accurate Measurement of Urinary Output in Critically Ill Patients Urinary Catheter Date of Insertion: 11/17/21 Urinary Catheter Time of Insertion: 18:15 Data : 11/20/21 02:19 11/20/21 02:19 Other Labs: Radiology Impressions Renal Ultrasound 11/18/21 18:22 IMPRESSION: Normal renal ultrasound. KUB X-Ray 11/19/21 06:00 IMPRESSION: 1. No acute abdominal finding. 2. Enteric tube in the stomach probably ending in the region of the antrum. Chest X-Ray 11/20/21 07:00 IMPRESSION: No significant change in correlation with the prior chest radiograph dated November 19, 2021. Chest/Abdomen/Pelvis CT 11/20/21 07:26 IMPRESSION: 1. Small bilateral pleural effusions with compressive atelectasis in the lung bases with air bronchograms. Recommend Correlation for pneumonia. 2. Endotracheal tube with tip above the nikia. 3. Slightly prominent fluid distended gallbladder which is otherwise normal in appearance. This can be followed up with ultrasound. 4. No hydronephrosis in either kidney. Mild renal cortical atrophy. 5. Mild rectosigmoid constipation. 6. Leone catheter. 7. No fluid collections in the abdomen or pelvis 8. Fat-containing umbilical hernia. Head CT 11/20/21 07:26 IMPRESSION: Some images degraded by beam hardening artifact 1. No evidence of intracranial hemorrhage or mass effect. 2. Mild small vessel changes with moderate parenchymal volume loss. 3. Intracranial vascular calcification. 4. Fluid and secretions within the paranasal sinuses. 5. No acute intracranial findings. Laboratory Results WBC 11.8 10^3/uL (4.0-10.0) H 11/20/21 02:19 RBC 3.95 10^6/uL (4.1-5.3) L 11/20/21 02:19 Hgb 11.8 g/dL (11.7-16.6) 11/20/21 02:19 Hct 35.7 % (42.0-52.0) L 11/20/21 02:19 MCV 90.4 fl (80-94) 11/20/21 02:19 MCH 29.9 pg (28.0-34.0) 11/20/21 02:19 MCHC 33.1 g/dL (30.0-36.0) 11/20/21 02:19 RDW 13.3 % (12.1-15.1) 11/20/21 02:19 Plt Count 125 10^3/cmm (130-400) L 11/20/21 02:19 MPV 11.4 fL (7.4-10.4) H 11/20/21 02:19 Neut % (Auto) 74.2 % 11/20/21 02:19 Lymph % (Auto) 10.9 % 11/20/21 02:19 Cannon % (Auto) 13.2 % 11/20/21 02:19 Eos % (Auto) 0.8 % 11/20/21 02:19 Baso % (Auto) 0.3 % 11/20/21 02:19 Neut # (Auto) 8.79 10^3/uL (1.8-7.7) H 11/20/21 02:19 Lymph # (Auto) 1.3 10^3/uL (0.8-4.8) 11/20/21 02:19 Cannon # (Auto) 1.6 10^3/uL (0.2-0.9) H 11/20/21 02:19 Eos # (Auto) 0.1 10^3/uL (0.0-0.8) 11/20/21 02:19 Baso # (Auto) 0.0 10^3/uL (0.0-0.1) 11/20/21 02:19 Nucleated RBC % (auto) 0 % 11/20/21 02:19 Nucleated RBCs # 0.0 /100WBC 11/20/21 02:19 PT 13.40 SECONDS (12.1-14.9) 11/20/21 02:19 INR 0.99 (0.8-1.2) 11/20/21 02:19 Specimen Type Arterial 11/20/21 05:56 Sample Site Radial, right 11/20/21 05:56 ABG pH 7.42 (7.35-7.45) 11/20/21 05:56 ABG pCO2 38.7 mmHg (35-45) 11/20/21 05:56 ABG pO2 108.0 mmHg (80.0-100.0) H 11/20/21 05:56 ABG HCO3 25.3 mmol/L (22-26) 11/20/21 05:56 ABG O2 Saturation 97.0 11/18/21 05:17 ABG Base Excess 0.9 mmol/L (-2.0-2.0) 11/20/21 05:56 Jan Test Pos 11/20/21 05:56 A-a O2 Gradient 1.4 mmHg (5-10) L 11/18/21 05:17 Hematocrit 38.2 % (42-52) L 11/20/21 05:56 Hgb O2 Saturation 95.3 % (95-100) 11/18/21 05:17 Carboxyhemoglobin 0.7 %THgb (0.4-20.1) 11/18/21 05:17 Methemoglobin 1.0 % (0.4-1.5) 11/18/21 05:17 Total Hemoglobin 12.6 g/dL (14-18) L 11/18/21 05:17 Sodium 134.0 mmol/L (131-143) 11/18/21 05:17 Potassium 5.1 mmol/L (3.5-5.0) H 11/18/21 05:17 Glucose 155.0 mg/dL (70-115) H 11/18/21 05:17 Ionized Calcium 1.3 mmol/L (1.1-1.4) 11/18/21 05:17 O2 Delivery Device Vent 11/20/21 05:56 O2 Liters/Min 6.0 % 11/17/21 18:30 FiO2 45.0 % 11/20/21 05:56 Tidal Volume 0.55 11/20/21 05:56 PEEP 10.0 cmH20 11/20/21 05:56 Metal Reclamation Kettle Tender ID Rolando 11/20/21 05:56 Sodium 135 mmol/L (136-145) L 11/20/21 02:19 Potassium 5.0 mmol/L (3.5-5.1) 11/20/21 02:19 Chloride 97 mmol/L (98-107) L 11/20/21 02:19 Carbon Dioxide 23 mmol/L (22-29) 11/20/21 02:19 Anion Gap 20.0 (5-19) H 11/20/21 02:19 BUN 43 mg/dL (8-23) H 11/20/21 02:19 Creatinine 2.2 mg/dL (0.7-1.2) H 11/20/21 02:19 GFR Calculation 30.7 mL/min (90-130) L 11/20/21 02:19 Glucose 167 mg/dL (65-115) H 11/20/21 02:19 POC Glucose 203 mg/dL (70-110) H 11/20/21 11:08 Estimat Average Glucose 206 11/17/21 19:00 Hemoglobin A1c 8.8 % (4.0-6.0) H 11/17/21 19:00 Calculated Osmolality 295 mOsm/kg (285-295) 11/20/21 02:19 Lactic Acid 0.8 mmol/L (0.5-2.2) 11/17/21 19:00 Lactate 1.4 mmol/L (0.5-2.2) 11/20/21 02:19 Uric Acid 8.3 mg/dL (3.4-7.0) H 11/17/21 19:05 Calcium 9.1 mg/dL (8.5-10.5) 11/20/21 02:19 Phosphorus 5.2 mg/dL (2.5-4.5) H 11/20/21 02:19 Magnesium 2.2 mg/dL (1.7-2.3) 11/20/21 02:19 Iron 189 ug/dL (59-158) H 11/18/21 01:30 TIBC 338 mcg/dl 11/18/21 01:30 % Saturation 55.9 % (20-50) H 11/18/21 01:30 Unsat Iron Binding 149 ug/dL (112-347) 11/18/21 01:30 Ferritin 368 ng/mL (30-400) 11/18/21 01:30 Total Bilirubin 0.6 mg/dL (0.15-1.2) 11/20/21 02:19 GGT 49 U/L (8-61) 11/17/21 19:00 AST 169 U/L (0-40) H 11/20/21 02:19 ALT 38 U/L (0-41) 11/20/21 02:19 Alkaline Phosphatase 61 IU/L (40-130) 11/20/21 02:19 Creatine Kinase 6511 U/L (39-308) H* 11/20/21 02:19 Troponin T Baseline 33 ng/L (0-15) H 11/17/21 19:05 Troponin T 120 Minute 27.84 ng/L (0-15) H 11/17/21 21:32 Delta Troponin T -5.16 ABS# (0-10) L 11/17/21 21:32 Troponin T Hi Sens 6Hr 33.32 ng/L (0-15) H 11/18/21 01:30 Troponin T Hi Sens 6Hr Delta 0.32 ng/L (0-12) 11/18/21 01:30 C-Reactive Protein 84.4 mg/L (0.0-4.9) H 11/20/21 02:19 NT-Pro-B Natriuret Pep 412 pg/mL (0-125) H 11/20/21 02:19 Total Protein 6.6 g/dL (6.6-8.7) 11/20/21 02:19 Albumin 3.6 g/dL (3.5-5.2) 11/20/21 02:19 Globulin 3.0 g/dL (1.3-4.6) 11/20/21 02:19 Amylase 60 U/L (28-100) 11/17/21 19:00 Lipase 43 U/L (13-60) 11/17/21 19:00 25-OH Vitamin D Total 29 ng/mL (30-100) L 11/18/21 01:30 Procalcitonin 0.29 ng/mL (0-0.5) 11/20/21 02:19 TSH 1.19 uIU/mL (0.27-4.20) 11/17/21 19:00 PTH Intact 48.2 pg/mL (15-65) 11/18/21 01:30 Calcium (PTH Intact) 9.5 mg/dL (8.5-10.5) 11/18/21 01:30 Urine Color Yellow (Yellow) 11/19/21 10:10 Urine Appearance Clear (CLEAR) 11/19/21 10:10 Urine pH 5 (5-7) 11/19/21 10:10 Ur Specific Helm 1.010 (1.005-1.030) 11/19/21 10:10 Urine Protein Neg (Negative) 11/19/21 10:10 Urine Glucose (UA) Norm (Normal) 11/19/21 10:10 Urine Ketones Negative (Negative) 11/19/21 10:10 Urine Blood 3+ (Negative) H 11/19/21 10:10 Urine Nitrate Negative (Negative) 11/19/21 10:10 Urine Bilirubin Neg (Negative) 11/19/21 10:10 Urine Urobilinogen Norm mg/dL (Negative) 11/19/21 10:10 Ur Leukocyte Esterase 2+ (Negative) H 11/19/21 10:10 Ur Microscopic Indic Cancelled 11/17/21 18:42 Urine RBC 5-10 /hpf (0-2) H 11/19/21 10:10 Urine WBC 5-10 /hpf (0-5) H 11/19/21 10:10 Ur Eosinophil Smear Not Reportable 11/17/21 18:42 Ur Squamous Epith Cells 0-4 /hpf (0-5) H 11/19/21 10:10 Amorphous Sediment Not Reportable 11/19/21 10:10 Urine Bacteria None /hpf (NONE) 11/19/21 10:10 Urine Eosinophils No eosinophils seen 11/17/21 18:42 Urine Osmolality 390 mOsm/kg (50-1200) 11/17/21 18:42 U Random Total Protein 4 mg/dL 11/19/21 10:10 Ur Random Sodium 38 mmol/L 11/17/21 18:42 Ur Random Potassium 42 mmol/L 11/17/21 18:42 Ur Random Chloride 15 mmol/L 11/17/21 18:42 Ur Random Urea Nitrogn 524 mg/dL 11/17/21 18:42 Ur Random Calcium 2.4 mg/dL 11/17/21 18:42 Urine Creatinine 62 mg/dL (39-259) 11/19/21 10:10 Salicylates < 0.3 mg/dL (3-10) L 11/17/21 19:00 Urine Opiates Screen Positive ng/mL (Negative) H 11/17/21 18:42 Ur Barbiturates Screen Negative ng/mL (Negative) 11/17/21 18:42 Ur Phencyclidine Scrn Negative ng/mL (Negative) 11/17/21 18:42 Ur Amphetamines Screen Negative ng/mL (Negative) 11/17/21 18:42 U Benzodiazepines Scrn Negative ng/mL (Negative) 11/17/21 18:42 Urine Cocaine Screen Negative ng/mL (Negative) 11/17/21 18:42 U Marijuana (THC) Screen Negative ng/mL (Negative) 11/17/21 18:42 TIFFANY Screen Negative (NEGATIVE) 11/17/21 21:32 Anti-ds DNA IgG Ab <1 IU/mL 11/17/21 21:32 Coronavirus 229E (PCR) Not detected (NOT DETECT) 11/19/21 09:45 Hep Bs Antigen Non-reactive (Nonreactive) 11/17/21 19:05 Hep Bs Antibody 3.5 (11.5-1000) L 11/17/21 19:05 Hepatitis C Antibody Non-reactive (Nonreactive) 11/17/21 19:05 Influenza Type A Ag Negative (Negative) 11/19/21 10:10 Influenza Type B Ag Negative (Negative) 11/19/21 10:10 SARS-CoV-2 (PCR) Not detected (NOT DETECT) 11/19/21 09:45 Anti-Streptolysin O Ab <50 IU/mL (<200) 11/17/21 21:32 Micro: Microbiology 11/19/21 09:42 Gram Stain - Final Sputum - Endotracheal Tube Aspirate Sputum Culture - Preliminary Corynebacterium species 11/18/21 07:49 Gram Stain - Final Sputum - Endotracheal Tube Aspirate Sputum Culture - Final 11/19/21 10:10 Urine Culture - Preliminary Urine Catheterized 11/19/21 09:02 Blood Culture - Preliminary Blood NEGATIVE TO DATE 11/19/21 08:50 Blood Culture - Preliminary Blood NEGATIVE TO DATE A&P Assessment and plan (1) Acute and chronic respiratory failure with hypoxia: Status: Acute (2) Acute renal failure: Status: Acute (3) Acute hyperkalemia: Status: Acute (4) History of paroxysmal supraventricular tachycardia: Status: Acute (5) Difficult ventilator weaning: Status: Acute Plan #Acute encephalopathy-secondary to possible uremic encephalopathy versus hypercapnic CO2 narcosis -Off Versed and currently patient is sedated with fentanyl and propofol -Plan is to taper down sedation and do awakening trial; can initiate Precedex if needed-monitor for bradycardia -CT head today did not show any acute changes -BUN has improved after hemodialysis and CO2 improved from ventilation #Acute acute hypercapnic respiratory failure in patient with fluid overload secondary to ESMER -Currently on ventilator CMV-550/PEEP 10/FiO2 45 %-ABG 7.4 /108/25 -We will taper down FiO2 35% and PEEP of 8 and will switch patient to MMV and once patient is more awake and alert will plan for extubation in 24 to 48 hours -CT chest 11/20/2021 showed both small bilateral pleural effusions with compressive atelectasis in lung bases with air bronchograms -Sputum cultures grew corynebacterium species -We will continue doing awakening trial and breathing trials # acute hyperkalemia-secondary to acute renal failure likely secondary to NSAID's/diuretics #Rhabdomyolysis CK 6733 -Received 2 dialysis sessions so far -Good urine output-today electrolytes are acceptable -Nephrology to follow-up -We will monitor CK, renal functions #Persistent fevers - suspect aspiration or pneumonia secondary to atelectasis -So far sputum cultures growing corny bacterium species -Low procalcitonin, white count 11 K, blood cultures are negative so far, -Patient on vancomycin and Zosyn-switched antibiotics to linezolid/imipenem -Monitor fever and white counts ICU CHECKLIST: Problem list updated Verbal orders reviewed and signed Analgesia: fentanyl Glycemic Control: insulin scale coverage Nutrition: NPO Restraint Renewal (within 24 hrs): Yes Ulcer Prophylaxis: PPI Chemical Thromboprophylaxis: Prophylaxis:Lovenox Mechanical Thromboprophylaxis: SCD Need for Central line: For multiple medications Need for Leone catheter: Uine output monitoring Critical Care Time (No Overlap): 55 min This patient has a high probability of sudden, clinically significant deterioration, which requires the highest level of physician preparedness to intervene urgently. I managed/supervised life or organ supporting interventions that required frequent physician assessment. I devoted my full attention in the ICU to the direct care of this patient for the period of time indicated above. Time I spent with family or surrogate(s) is included only if the patient was incapable of providing necessary information or participating in decision making. Time devoted to teaching and to any procedures I billed separately is not included. Services Provided: Telemetry review Mechanical Ventilation Hemodynamic interpretation, assessment and management Review and interpretation of CXR Review and interpretation of lab values Review and interpretation of microbiologic data and culture results Review of medications and administration Review and interpretation of Nutrition requirements and management Discussion of management with other consultants and services Clinical update to family members Hospitalist is aware that I am not on-call until December 07; however I have given my recommendations to the hospitalist, RN, RT taking care of the patient. Attestations Medical Necessity Statement*: Currently undergoing assessment for weaning off ventilator Time Spent in Patient Care: Greater than 35 minutes (>than 50% of time spent in counselling and/or direct pt care on unit) . Critical Care Time: The high probability of a clinically significant, sudden or life threatening deterioration of the patient's [pulmonary, renal, infection] system(s) required my full and direct attention, intervention and personal management. The critical care time is as shown. 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
--- NOTE | 2021-11-20 14:37 | P.PN_ITS ---
Subjective Subjective: Patient was seen this morning -Patient's sister and are at bedside -Overnight he had febrile episodes, receiving cooling measures, Tylenol, ibuprofen, currently temperature 99.4 -Diuresed well, kidney function improving, edema improving -He is down to 35% FiO2 -Remains on sedation, mechanical ventilation -Given persistent febrile episodes, discussed with family further work-up including couch CT, other possibilities could be a medication withdrawal, will resume his medications, possible serotonin syndrome, so far his blood cultures are negative, urine cultures negative, certainly his central line in his dialysis catheter could be a source of infection although his cultures have been unremarkable -He also had necrotizing fasciitis, he recently has been off antibiotics since June, he did have an adverse reaction to some antibiotics, family thinks it is vancomycin, will switch vancomycin to Zyvox -The help of thought his central source for his fevers, will do CT of his head -Plan today is to do spontaneous breathing trial, decrease sedation couch CT, further diuresis -Patient's family voiced understanding, all questions answered, opportunity to answer questions, they voiced understanding Vitals/I&O/Wt Last Vital Signs Temp 99.4 F 11/20/21 12:15 Pulse 96 11/20/21 14:00 Resp 18 11/20/21 13:00 BP 157/87 11/20/21 13:00 Pulse Ox 94 11/20/21 13:00 O2 Del Method 11/20/21 12:53 O2 Flow Rate 6 11/17/21 18:12 FiO2 35 11/20/21 13:00 11/19/21 11/20/21 11/20/21 22:59 06:59 14:59 Intake Total 471.882 / 869.253 579.292 / 3673.702 8584.589 / 1519.589 Output Total 975 / 2850 2400 / 2400 Balance -503.118 / -1980.747 579.292 / -1401.455 -880.411 / -880.411 Weight last 48 hrs Weight 166.06 kg Weight 166.922 kg Physical Exam Narrative: Intubated, sedated, mechanical ventilation -Orogastric tube in place -Endotracheal tube in place -Right dialysis catheter in place, looks clean and dry -Left central line in place looks clean and dry -Leone catheter in place, no purulent discharge -Skin, no open sores Const: COMMON NORMALS: no acute distress Eye: OTHER: Pupils pinpoint on sedation Resp: COMMON NORMALS: normal respiratory effort, No retractions, No use of accessory muscles and clear to auscultation bilaterally AUSCULTATION: clear to auscultation bilaterally Cardio: COMMON NORMALS: regular rate, regular rhythm, S1 normal heart sound present and S2 normal heart sound present RATE: regular rate RHYTHM: regular rhythm HEART SOUNDS: S1 normal heart sound present and S2 normal heart sound present GI: OTHER: Abdomen soft, distended, decreased bowel sounds, no rebound, no guarding, no rigidity Extremity: NARRATIVE EXTREMITY EXAM: 1+ pitting edema Urinary Catheter Management: Leone: Cath Placed During This Visit: yes Reason for Continuing Indwelling Catheter: Accurate Measurement of Urinary Output in Critically Ill Patients Urinary Catheter Date of Insertion: 11/17/21 Urinary Catheter Time of Insertion: 18:15 Data : 11/20/21 02:19 11/20/21 02:19 Micro: Microbiology 11/19/21 09:42 Gram Stain - Final Sputum - Endotracheal Tube Aspirate Sputum Culture - Preliminary Corynebacterium species 11/18/21 07:49 Gram Stain - Final Sputum - Endotracheal Tube Aspirate Sputum Culture - Final 11/19/21 10:10 Urine Culture - Preliminary Urine Catheterized 11/19/21 09:02 Blood Culture - Preliminary Blood NEGATIVE TO DATE 11/19/21 08:50 Blood Culture - Preliminary Blood NEGATIVE TO DATE A&P Assessment and plan (1) Sinus bradycardia: Status: Acute (2) Ileus: Status: Acute (3) Poor venous access: Status: Acute (4) Constipation: Status: Acute (5) Acute renal failure: Status: Acute (6) Hypercarbia: Status: Acute (7) Acute hyperkalemia: Status: Acute (8) Acute and chronic respiratory failure with hypoxia: Status: Acute (9) Shock: Status: Acute (10) Acute exacerbation of CHF (congestive heart failure): Status: Acute Plan Acute hypoxic hypercarbic respiratory failure -Patient's sudden decompensation yesterday evening, likely a component of h ypercarbia, acute encephalopathy, possible aspiration, acute flash pulmonary edema acute diastolic CHF exacerbation --4.5 L, edema improving -Down to 35% FiO2 Plan -Continue intubation, mechanical ventilation, minimize FiO2, tidal volume -Propofol, fentanyl for sedation, wean sedation -Follow blood cultures, sputum cultures, monitor for fevers -Continue Lasix 40 IV twice daily, dialysis not required currently -Keep n.p.o. -Lovenox for DVT prophylaxis -Protonix for GI prophylaxis -Status stable, prognosis is guarded -Pulmonary on consult Fevers -Blood cultures, sputum culture so far negative -Repeat blood cultures, so far negative -Repeat sputum cultures, so far negative -UA, urine culture -Pro-Osbaldo 0.29, CRP 84.4 -COVID, flu negative -Bilateral venous ultrasound negative for DVT -We will do CT chest abdomen pelvis with CT of the head -Possible withdrawal, resume sertraline, gabapentin, decrease dose of hydrocodone -Possible serotonin syndrome, limit the use of fentanyl -Possible aspiration? Might require bronchoscopy -Switch to Zyvox, possible adverse reaction to vancomycin -Switch to Primaxin Sinus bradycardia, with shock -Resolved -Heart rates as low as 20s, blood pressure 60s over 40s -Secondary to acute hyperkalemia -Yesterday evening -He never lost his pulse, he never lost a blood pressure -Status post 3 g of atropine, requiring up to 20 of Levophed, currently down to 10 during dialysis dopamine titrating down, external pacing currently off, treatment of hyperkalemia as below -Continues to have sinus bradycardia, P waves present, no QRS prolongation, peak T waves still present -Continue telemetry monitoring -Cardiac echo -Study is poor in quality.? The patient is on a ventilator.? ?Intravenous echo contrast was used.? The ventricle is probably ?normal in size and function.? No obvious regional wall motion ?disturbances.? Diastolic function not evaluated.? Overall ?ejection fraction is within normal limits and approximately 60%. ?Mildly increased left atrial size. -I have consulted cardiology -Currently no need for pacemaker placement, external pacing, hemodynamically stable Shock -Resolved -Likely secondary to sedating medication, dialysis -Levophed as needed Acute hyperkalemia -Resolved -Likely secondary to acute renal failure -With sinus bradycardia, flattening of T waves, peaked T waves, QRS prolongation, EKG changes -Status post 3 doses of 1 g calcium chloride, 20 units IV push insulin with D50, sodium bicarb, Kayexalate, Xopenex -Currently responsive to dialysis -Potassium 5.5 Acute renal failure as above, secondary to Celebrex, diuretic therapy, rhabdomyolysis Rhabdomyolysis, CPK over 6000, minimize propofol, monitor propofol infusion syndrome Morbid obesity, intubation as above Type 2 diabetes mellitus, A1c 8.8, continue low-dose sliding scale Evidence of ileus, significant constipation, keep n.p.o., bowel regimen, will consider CT scan abdomen pelvis once more stable Attestations Medical Necessity Statement*: Patient requires hospitalization for fluid overload, persistent fevers, acute hypoxic respiratory failure, renal failure, critical care time spent over 35 minutes Coding Level of Care Code Acute Development Spec for Chg Fwd Diagnoses Sinus bradycardia R00.1 Ileus K56.7 Poor venous access I87.8 Constipation K59.00 Acute renal failure N17.9 Hypercarbia R06.89 Acute hyperkalemia E87.5 Acute and chronic respiratory failure with hypoxia J96.21 Shock R57.9 Acute exacerbation of CHF (congestive heart failure) I50.9
[2021-11-20] MEDS: polyethylene glycol 3350 Pkt 17 gm PO (14:58)
[2021-11-20] MEDS: propofol 1,000 MG/100 ML INJ 19.49 MG IV (17:03)
[2021-11-20] MEDS: pantoprazole 40 mg SDV IVP (17:04)
[2021-11-20] MEDS: enoxaparin 40 mg/0.4 mL Syringe SUBCUT (17:09)
[2021-11-20 17:11] LABS: Glucose Point of Care 199 mg/dL (70-110)
[2021-11-20 17:41] LABS: Hepatitis A Antibody IgM Non-Reactive (Nonreactive); Hepatitis B Core IgM Non-Reactive (Nonreactive); Hepatitis B Surface Antigen Non-Reactive (Nonreactive); Hepatitis C Virus Antibody Non-Reactive (Nonreactive)
[2021-11-20 18:55] LABS: HIV 1 & 2 Antibody Non-Reactive (Non-Reactiv); HIV 1 & 2 Antigen Non-Reactive (Non-Reactiv)
[2021-11-20 23:01] LABS: Adenovirus Not Detected (NOT DETECT); Chlamydia Pneumoniae Not Detected (NOT DETECT); Coronavirus 229E,HKU1,NL63,OC4 Not Detected (NOT DETECT); Human Metapneumovirus Not Detected (NOT DETECT); Human Rhinovirus/Enterovirus Not Detected (NOT DETECT); Influenza A Not Detected (NOT DETECT); Influenza A H1 Not Detected (NOT DETECT); Influenza A H1-2009 Not Detected (NOT DETECT); Influenza A H3 Not Detected (NOT DETECT); Influenza B Not Detected (NOT DETECT); Mycoplasma Pneumoniae Not Detected (NOT DETECT); Parainfluenza Virus Type 1 Not Detected (NOT DETECT); Parainfluenza Virus Type 2 Not Detected (NOT DETECT); Parainfluenza Virus Type 3 Not Detected (NOT DETECT); Parainfluenza Virus Type 4 Not Detected (NOT DETECT); Respiratory Syncytial Virus A Not Detected (NOT DETECT); Respiratory Syncytial Virus B Not Detected (NOT DETECT); SARS-COV-2 Not Detected (NOT DETECT)
[2021-11-20 23:22] LABS: Glucose Point of Care 165 mg/dL (70-110)
[2021-11-21] VITALS (95 sets, daily range): BP systolic 95–145; BP diastolic 58–95; PULSE 86–117; RESP 9–40; TEMP 37.1–39.1; O2SAT 87–100; BMI 50.6
[2021-11-21] MEDS: HYDROcodone-acetaminophen 10-325 mg Tablet 1 TAB PO ×2 (00:03→08:04)
[2021-11-21] MEDS: acetaminophen 325 mg Tablet 650 MG PO (00:16)
[2021-11-21] MEDS: propofol 1,000 MG/100 ML INJ 24.36 MG IV ×2 (00:29→04:40)
[2021-11-21] MEDS: acetaminophen 1,000 MG/100 ML PIGGYBACK 400 MG IV (02:58)
[2021-11-21] MEDS: morphine 4 mg/mL SDV 1 mL 2 MG IVP ×2 (03:00→06:21)
--- NOTE | 2021-11-21 03:07 | PC.NURSE ---
Pt eyes open when nurse entered. Pt had tears coming from eyes. Nurse asked pt if he was in pain. Pt nodded his head yes. Nurse asked, On a scale of 1-10, 0 being no pain and 10 being the most pain you've ever felt, is your pain above a 5 Pt nodded yes. Nurse continued to ask pain level. Pt nodded that pain was a 10/10. Nurse increased fentanyl drip as well as gave PRN dose of morphine.
[2021-11-21] MEDS: ipratropium-albuterol 3 mL Neb INHALATION ×6 (03:27→23:47)
[2021-11-21 04:35] LABS: ABG PCO2 41.8 mmHg (35-45); ABG PH Result 7.45 (7.35-7.45); Arterial Blood Gas Hematocrit 40.8 % (42-52); Base Excess ABG 4.2 mmol/L (-2.0-2.0); Blood Gas Operator Identificat JB; Blood Gas Sample Site Brachial, right; Blood Gas Sample Type Arterial; HCO3 ABG 28.7 mmol/L (22-26); Oxygen Device VENT; PO2 ABG 63.2 mmHg (80.0-100.0)
[2021-11-21 04:36] LABS: Blood Gas Tidal Volume 0.55
[2021-11-21 04:37] LABS: Basophils % 0.3 %; Eosinophils # 0.2 10^3/uL (0.0-0.8); Eosinophils % 1.9 %; Hematocrit 36.4 % (42.0-52.0); Hemoglobin 11.7 g/dL (11.7-16.6); Lymphocytes # 1.5 10^3/uL (0.8-4.8); Lymphocytes % 13.3 %; Mean Corpuscular HGB Conc 32.1 g/dL (30.0-36.0); Mean Corpuscular Hemoglobin 30.1 pg (28.0-34.0); Mean Corpuscular Volume 93.6 fl (80-94); Mean Platelet Volume 11.8 fL (7.4-10.4); Monocytes # 1.3 10^3/uL (0.2-0.9); Monocytes % 11.3 %; Neutrophils # 8.19 10^3/uL (1.8-7.7); Neutrophils % 72.5 %; Nucleated Red Blood Cells % 0 %; Platelet Count 107 10^3/cmm (130-400); Red Blood Count 3.89 10^6/uL (4.1-5.3); Red Cell Distribution Width 13.3 % (12.1-15.1); White Blood Count 11.3 10^3/uL (4.0-10.0)
[2021-11-21 04:45] LABS: INR 1.01 (0.8-1.2)
[2021-11-21 04:55] LABS: Lactate (Lactic Acid level) 1.4 mmol/L (0.5-2.2)
[2021-11-21 05:05] LABS: NT Pro B Type Natriuretic Pept 414 pg/mL (0-125); Procalcitonin 0.27 ng/mL (0-0.5)
[2021-11-21 05:16] LABS: Alanine Aminotransferase 37 U/L (0-41); Albumin Level 3.4 g/dL (3.5-5.2); Alkaline Phosphatase 61 IU/L (40-130); Anion Gap 18.1 (5-19); Aspartate Amino Transferase 125 U/L (0-40); Blood Urea Nitrogen 36 mg/dL (8-23); Calcium 9.3 mg/dL (8.5-10.5); Carbon Dioxide 28 mmol/L (22-29); Chloride 94 mmol/L (98-107); Globulin 3.5 g/dL (1.3-4.6); Glomerular Filtration Rate 51.7 mL/min (90-130); Glucose 154 mg/dL (65-115); Magnesium 1.9 mg/dL (1.7-2.3); Osmolality Calculated 293 mOsm/kg (285-295); Phosphorus 4.3 mg/dL (2.5-4.5); Potassium 4.1 mmol/L (3.5-5.1); Sodium 136 mmol/L (136-145); Total Bilirubin 0.5 mg/dL (0.15-1.2); Total Protein 6.9 g/dL (6.6-8.7)
--- NOTE | 2021-11-21 06:00 | XRR_ITS ---
PROCEDURE INFORMATION: Exam: XR Abdomen Exam date and time: 11/21/2021 5:58 AM Age: 61 years old Clinical indication: Condition or disease; Intestinal condition; Obstruction; Additional info: Ileus TECHNIQUE: Imaging protocol: Radiologic exam of the abdomen. Views: Frontal supine view of the abdomen. 1 View. COMPARISON: [place] [id number] 11/20/2021 10:23 AM FINDINGS: Tubes, catheters and devices: A nasogastric tube is present with the tip projecting near the pylorus. Gastrointestinal tract: Normal. No bowel dilation. Bones/joints: Patient has undergone lower lumbar spine fusion with pedicle screws and rods. XR/XR KUB portable [id number] IMPRESSION: No acute abnormality. Normal bowel gas pattern.
[2021-11-21 06:16] LABS: Creatine Phosphokinase 3512 U/L (39-308)
--- NOTE | 2021-11-21 06:17 | PC.NURSE ---
Pt continues to be restless. Pt is kicking and trying to move his hands. Report 11/20 was taken from DAVID Oates who stated that today, 11/21, pt was going to have a weaning trial. Иван told this nurse to begin lowering sedation near shift change. As sedation is weaned, pt becomes increasingly restless. When asked about pain, pt nods his head in agreement that he is in pain. Propofol is decreased as well as fentanyl. PRN Morphine gven again as a short-acting solution until pt can be fully weaned from sedation and vent.
--- NOTE | 2021-11-21 07:00 | XRR_ITS ---
PROCEDURE INFORMATION: Exam: XR Chest Exam date and time: 11/21/2021 5:58 AM Age: 61 years old Clinical indication: Shortness of breath; Additional info: SOB TECHNIQUE: Imaging protocol: Radiologic exam of the chest. Views: 1 view. COMPARISON: [place] [id number] 11/20/2021 10:23 AM FINDINGS: Tubes, catheters and devices: An endotracheal tube, nasogastric tube, right internal jugular and left subclavian vein catheters project in satisfactory position. Lungs: There is patchy basilar atelectasis. Pleural spaces: Unremarkable. No pleural effusion. No pneumothorax. Heart/Mediastinum: Unremarkable. No cardiomegaly. Bones/joints: Unremarkable. XR/XR chest 1V portable [id number] IMPRESSION: Bibasilar patchy atelectasis.
[2021-11-21 07:21] LABS: Glucose Point of Care 190 mg/dL (70-110)
[2021-11-21] MEDS: FUROsemide 10 mg/mL SDV 4mL 40 MG IVP (08:03)
[2021-11-21] MEDS: insulin lispro 100 unit/1 mL SUBCUT ×3 (08:04→17:15)
[2021-11-21] MEDS: gabapentin 300 mg Capsule PO ×3 (08:04→20:35)
[2021-11-21] MEDS: sertraline 50 mg Tablet PO (08:04)
[2021-11-21] MEDS: sennosides-docusate Tablet 2 TAB OG-TUBE (08:04)
--- NOTE | 2021-11-21 08:10 | P.PN_ITS ---
Subjective Subjective: excellent uop. remains intubated and sedated Medications: Reviewed: Yes Medication Review Details: Current Medications Acetaminophen (Acetaminophen 325 Mg Tablet) 650 mg PO Q6H PRN PRN Reason: Mild/Mod Pain Or Temp >/= 101 Last Admin: 11/21/21 00:16 Dose: 650 mg Hydrocodone Bitart/Acetaminophen (Hydrocodone-Acetaminophen 10-325 Mg Tablet) 1 tab PO Q8H [facility] Last Admin: 11/21/21 08:04 Dose: 1 tab Albuterol/Ipratropium (Ipratropium-Albuterol 3 Ml Neb) 3 ml INHALATION Q4H.[facility] Last Admin: 11/21/21 03:27 Dose: 3 ml Chlorhexidine Gluconate (Chlorhexidine Gluconate 4% Btl 118 Ml) 1 applic TOPICAL 0100 [facility] Last Admin: 11/21/21 00:03 Dose: Not Given Dextrose (Dextrose 50% Syringe 50 Ml) 25 ml IVP ONCE PRN; Protocol PRN Reason: hypoglycemia protocol Dextrose (Dextrose 50% Syringe 50 Ml) 50 ml IVP PRN PRN; Protocol PRN Reason: hypoglycemia protocol Enoxaparin Sodium (Enoxaparin 40 Mg/0.4 Ml Syringe) 40 mg SUBCUT Q24H [facility] Last Admin: 11/20/21 17:09 Dose: 40 mg Furosemide (Furosemide 10 Mg/Ml Sdv 4ml) 40 mg IVP Q12H [facility] Last Admin: 11/21/21 08:03 Dose: 40 mg Gabapentin (Gabapentin 300 Mg Capsule) 300 mg PO TID [facility] Last Admin: 11/21/21 08:04 Dose: 300 mg Glucagon (Glucagon 1 Mg/Ml Inj 1 Ml) 1 mg IM ONCE PRN; Protocol PRN Reason: Adult Acute Hypoglycemia Prot. Haloperidol Lactate (Haloperidol Inj 5 Mg/Ml Inj 1 Ml) 1 mg IM Q4H PRN PRN Reason: AGITATION Last Admin: 11/17/21 19:02 Dose: 1 mg Dextrose (D5w) 500 mls @ 100 mls/hr IV ONCE PRN; Protocol PRN Reason: Adult Acute Hypoglycemia Prot dexmedeTOMIDine 0.9 % NaCL (Precedex) 400 mcg in 100 mls @ 0 mls/hr IV .Q0M [facility]; Protocol Last Titration: 11/17/21 19:30 Dose: 0 mcg/kg/hr, 0 mls/hr Fentanyl 1,000 mcg/ Sodium (Chloride) 100 mls @ 0 mls/hr IV .Q0M [facility]; Protocol Last Titration: 11/20/21 01:26 Dose: Infused Propofol (Diprivan) 1,000 mg in 100 mls @ 0 mls/hr IV .Q0M [facility]; Protocol Last Admin: 11/21/21 04:40 Dose: 25 mcg/kg/min, 24.36 mls/hr Norepinephrine Bitartrate 4 mg (/ Dextrose) 254 mls @ 0 mls/hr IV .Q0M [facility]; Protocol Last Titration: 11/20/21 09:35 Dose: Infused Midazolam HCl 100 mg/ Sodium (Chloride) 100 mls @ 0 mls/hr IV .Q0M [facility]; Pro tocol Last Titration: 11/20/21 09:35 Dose: Infused Fentanyl 2,500 mcg/ Sodium (Chloride) 250 mls @ 0 mls/hr IV .Q0M [facility]; Protocol Last Titration: 11/21/21 03:01 Dose: 100 mcg/hr, 10 mls/hr Linezolid (Zyvox Premix) 600 mg in 300 mls @ 300 mls/hr IV Q12H [facility]; Protocol Last Infusion: 11/21/21 00:03 Dose: Infused Imipenem/Cilastatin Sodium 500 (mg/ Dextrose) 100 mls @ 200 mls/hr IV Q8H [facility]; Protocol Insulin Human Lispro (Insulin Lispro 100 Unit/1 Ml) 0 unit SUBCUT TIDWM [facility]; Protocol Last Admin: 11/21/21 08:04 Dose: 4 unit Morphine Sulfate (Morphine 4 Mg/Ml Sdv 1 Ml) 2 mg IVP Q4H PRN PRN Reason: SEVERE PAIN Last Admin: 11/21/21 06:21 Dose: 2 mg Naloxone HCl (Naloxone 0.4 Mg/Ml Sdv) 0.1 mg IVP Q2M PRN PRN Reason: OPIATERV Ondansetron HCl (Ondansetron 2 Mg/Ml Sdv 2 Ml) 4 mg IVP Q8H PRN PRN Reason: vomiting, or N/V if npo Pantoprazole Sodium (Pantoprazole 40 Mg Sdv) 40 mg IVP Q24H [facility] Last Admin: 11/20/21 17:04 Dose: 40 mg Senna/Docusate Sodium (Sennosides-Docusate Tablet) 2 tab OG-TUBE DAILY [facility] Last Admin: 11/21/21 08:04 Dose: 2 tab Sertraline HCl (Sertraline 50 Mg Tablet) 50 mg PO DAILY [facility] Last Admin: 11/21/21 08:04 Dose: 50 mg Vitals/I&O/Wt Last Vital Signs Temp 99.6 F 11/21/21 05:24 Pulse 99 11/21/21 05:38 Resp 16 11/21/21 03:28 BP 128/65 11/21/21 04:00 Pulse Ox 91 11/21/21 04:00 O2 Del Method 11/21/21 03:33 O2 Flow Rate 6 11/17/21 18:12 FiO2 35 11/21/21 03:33 11/20/21 11/21/21 11/21/21 22:59 06:59 14:59 Intake Total 411.052 / 2030.641 745.375 / 2776.016 Output Total 650 / 3050 2175 / 5225 Balance -238.948 / -1019.359 -1429.625 / -2448.984 Weight last 48 hrs Weight 174.043 kg Weight 166.06 kg Physical Exam Narrative: obese, intubated - fio2=35%/ RR16/ PEEP 10/ TV 550 febrile heent- nc/at, eomi neck supple, rt sided dialysis catheter lungs -improved air movement b/l heart reg, +YASMINE abd soft, distended, low BS ext b/l edema improving + collins neuro- sedated Urinary Catheter Management: Collins: Cath Placed During This Visit: yes Reason for Continuing Indwelling Catheter: Accurate Measurement of Urinary Output in Critically Ill Patients Urinary Catheter Date of Insertion: 11/17/21 Urinary Catheter Time of Insertion: 18:15 Data : 11/21/21 02:55 11/21/21 02:55 Micro: Microbiology 11/19/21 09:45 MRSA Culture - Final Nose 11/19/21 09:42 Gram Stain - Final Sputum - Endotracheal Tube Aspirate Sputum Culture - Preliminary Corynebacterium species 11/18/21 07:49 Gram Stain - Final Sputum - Endotracheal Tube Aspirate Sputum Culture - Final 11/19/21 10:10 Urine Culture - Preliminary Urine Catheterized 11/19/21 09:02 Blood Culture - Preliminary Blood NEGATIVE TO DATE 11/19/21 08:50 Blood Culture - Preliminary Blood NEGATIVE TO DATE A&P Assessment and plan (1) Acute renal failure: 61 yr old man Obesity, DM, SVT, CHF, back pain A. Fevers per medicine 1. s/p intubation and cardiac arrest- s/p HD- off pressors -wean vent per pulm / medicine 2. ESMER- likely from diuretics and celebrex -renal us -rt 11.8 cm, left 11. 4 cm -ua -negative ur na 38 - serologies pending -s/p emergent HD x 2 - Dr Rivas placed a right IJ dialysis access -cr improving -d/c lasix -PLEASE REMOVE DIALYSIS CATHETER 3. met alklaosis- hold lasix 4 .hyperkalemia- monitor s/p HD x 2 -k improved to 4.1 5. DM care per medicine 6. ck improved to 3512 7 . hypercalcemia- can be from med treatment given to him to treat his hyperkalemia. -ca improved -phos improved -normal pth and vit d level 29- can replete 8. echo okay EF -please avoid nsaid's fevers per ID case discussed w/ ORACLE TECHNICAL ARCHITECT -seen and examined w/ precision agronomist- telehealth visit as renal fxn is improving- renal will see PRN time spent 30 min Status: Acute Plan see above Attestations Medical Necessity Statement*: VDRF, fevers Time Spent in Patient Care: 16 - 35 minutes (>than 50% of time spent in counselling and/or direct pt care on unit) . Coding Level of Care Code Acute Inspector Barrel for Luis Eduardo Kelley Diagnoses Acute renal failure N17.9
[2021-11-21 08:58] LABS: Lipase 23 U/L (13-60)
[2021-11-21] MEDS: dexmedeTOMIDine 0.9 % NaCL 400 MCG/100 ML PREMIX IV ×2 (09:05→15:17)
[2021-11-21] MEDS: linezolid premix 600 MG/300 ML PREMIX 300 MG IV ×2 (09:08→21:34)
[2021-11-21] MEDS: quetiapine 25 mg Tablet 50 MG OG-TUBE (09:45)
[2021-11-21 11:14] LABS: Glucose Point of Care 281 mg/dL (70-110)
[2021-11-21] MEDS: HYDROcodone-acetaminophen 10-325 mg Tablet 2 TAB PO ×2 (11:49→20:34)
[2021-11-21] MEDS: metOLazone 5 MG Tablet PO (11:49)
[2021-11-21] MEDS: magnesium citrate Btl 296 mL 150 ML PO (11:50)
--- NOTE | 2021-11-21 13:36 | PM.PN ---
Subjective Subjective: Patient was seen multiple times throughout the morning, early in the morning, he was alert, awake, following commands, squeezing my fingers, wiggling his toes, was more agitated, breathing over the vent, family at bedside, continues to have febrile episodes overnight, currently on 35% FiO2, has good urine output, over 5 L, he was given Seroquel, his dose of hydrocodone has been increased to his home dose of 20 every 6 hours, due to concern for withdrawal, as the fentanyl has been turned off and he is on Precedex, he was reexamined early in the afternoon, he is alert and awake, continues to move around, does follow some commands such as wiggling his toes, but at other times he tends to stare off in the distance, pupils equal round reactive to light, remains on 35% FiO2, temperature 99.7 Vitals/I&O/Wt Last Vital Signs Temp 99.7 F H 11/21/21 12:00 Pulse 110 H 11/21/21 12:00 Resp 21 H 11/21/21 13:00 BP 122/72 11/21/21 12:00 Pulse Ox 95 11/21/21 13:00 O2 Del Method 11/21/21 11:18 O2 Flow Rate 6 11/17/21 18:12 FiO2 35 11/21/21 13:00 11/20/21 11/21/21 11/21/21 22:59 06:59 14:59 Intake Total 411.052 / 2030.641 745.375 / 2776.016 851.078 / 851.078 Output Total 650 / 3050 2175 / 5225 1300 / 1300 Balance -238.948 / -1019.359 -1429.625 / -2448.984 -448.922 / -448.922 Weight last 48 hrs Weight 174.043 kg Weight 166.06 kg Physical Exam Const: COMMON NORMALS: no acute distress OTHER: Alert and awake Right dialysis catheter removed Left central line in place Resp: COMMON NORMALS: normal respiratory effort, No retractions and No use of accessory muscles OTHER: Has some close on exam Cardio: COMMON NORMALS: regular rate, regular rhythm, S1 normal heart sound present and S2 normal heart sound present RATE: regular rate RHYTHM: regular rhythm HEART SOUNDS: S1 normal heart sound present and S2 normal heart sound present GI: COMMON NORMALS: non-tender Extremity: NARRATIVE EXTREMITY EXAM: 1+ pitting bilateral extremity Psych: COMMON NORMALS: mental status grossly normal Urinary Catheter Management: Leone: Cath Placed During This Visit: yes Reason for Continuing Indwelling Catheter: Accurate Measurement of Urinary Output in Critically Ill Patients Urinary Catheter Date of Insertion: 11/17/21 Urinary Catheter Time of Insertion: 18:15 Data : 11/21/21 02:55 11/21/21 02:55 Micro: Microbiology 11/20/21 15:30 Gram Stain - Final Sputum - Endotracheal Tube Aspirate 11/19/21 10:10 Urine Culture - Final Urine Catheterized 11/19/21 09:45 MRSA Culture - Final Nose 11/19/21 09:42 Gram Stain - Final Sputum - Endotracheal Tube Aspirate Sputum Culture - Preliminary Corynebacterium species 11/18/21 07:49 Gram Stain - Final Sputum - Endotracheal Tube Aspirate Sputum Culture - Final 11/19/21 09:02 Blood Culture - Preliminary Blood NEGATIVE TO DATE 11/19/21 08:50 Blood Culture - Preliminary Blood NEGATIVE TO DATE A&P Assessment and plan (1) Sinus bradycardia: Status: Acute (2) Ileus: Status: Acute (3) Poor venous access: Status: Acute (4) Constipation: Status: Acute (5) Acute renal failure: Status: Acute (6) Hypercarbia: Status: Acute (7) Acute hyperkalemia: Status: Acute (8) Acute and chronic respiratory failure with hypoxia: Status: Acute (9) Shock: Status: Acute (10) Acute exacerbation of CHF (congestive heart failure): Status: Acute Plan Acute hypoxic hypercarbic respiratory failure -Patient's sudden decompensation yesterday evening, likely a component of hypercarbia, acute encephalopathy, possible aspiration, acute flash pulmonary edema acute diastolic CHF exacerbation -- 6 L, edema improving -Down to 35% FiO2 Plan -Continue intubation, mechanical ventilation, minimize FiO2, tidal volume -Precedex, fentanyl for sedation, wean sedation -Continue spontaneous breathing trial today, potential extubation in the next 24 hours -Continue Seroquel -Can use low-dose fentanyl throughout the night if he is not extubated -Resume home dose of hydrocodone 20 mg every 8 hours, at bedside tells telemetry that he has severe back pain -Follow blood cultures, sputum cultures, monitor for fevers -1 dose of metolazone, daily dose Lasix based on urine output -Keep n.p.o. 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 -Blood cultures, sputum culture so far negative -Repeat blood cultures, so far negative -Repeat sputum cultures, so far negative -Right dialysis catheter removed, culture tip -Left central line in place, will consider removing culturing -UA, urine culture -Pro-Osbaldo 0.29, CRP 84.4 -COVID, flu negative -Bilateral venous ultrasound negative for DVT -We will do CT chest abdomen pelvis with CT of the head -Possible withdrawal, resume sertraline, gabapentin, decrease dose of hydrocodone -Possible serotonin syndrome, limit the use of fentanyl -Possible aspiration -Continue Zyvox -Continue Primaxin -We will discuss with infectious disease Sinus bradycardia, with shock -Resolved -Heart rates as low as 20s, blood pressure 60s over 40s -Secondary to acute hyperkalemia -Yesterday evening -He never lost his pulse, he never lost a blood pressure -Status post 3 g of atropine, requiring up to 20 of Levophed, currently down to 10 during dialysis dopamine titrating down, external pacing currently off, treatment of hyperkalemia as below -Continues to have sinus bradycardia, P waves present, no QRS prolongation, peak T waves still present -Continue telemetry monitoring -Cardiac echo -Study is poor in quality.? The patient is on a ventilator.? ?Intravenous echo contrast was used.? The ventricle is probably ?normal in size and function.? No obvious regional wall motion ?disturbances.? Diastolic function not evaluated.? Overall ?ejection fraction is within normal limits and approximately 60%. ?Mildly increased left atrial size. -I have consulted cardiology -Currently no need for pacemaker placement, external pacing, hemodynamically stable Shock -Resolved -Likely secondary to sedating medication, dialysis -Levophed as needed Acute hyperkalemia -Resolved -Likely secondary to acute renal failure -With sinus bradycardia, flattening of T waves, peaked T waves, QRS prolongation, EKG changes -Status post 3 doses of 1 g calcium chloride, 20 units IV push insulin with D50, sodium bicarb, Kayexalate, Xopenex -Currently responsive to dialysis -Potassium 5.5 Acute renal failure as above, secondary to Celebrex, diuretic therapy, rhabdomyolysis, resolved Rhabdomyolysis, CPK over 1999, minimize propofol, monitor propofol infusion syndrome Morbid obesity, intubation as above Type 2 diabetes mellitus, A1c 8.8, continue low-dose sliding scale Evidence of ileus, significant constipation, keep n.p.o., bowel regimen, will consider CT scan abdomen pelvis once more stable Attestations Medical Necessity Statement*: Patient requires hospitalization for acute hypoxic respiratory failure, fevers, ventilator dependence, acute renal failure Coding Level of Care Code Acute Communication Manager for Chg Fwd Diagnoses Sinus bradycardia R00.1 Ileus K56.7 Poor venous access I87.8 Constipation K59.00 Acute renal failure N17.9 Hypercarbia R06.89 Acute hyperkalemia E87.5 Acute and chronic respiratory failure with hypoxia J96.21 Shock R57.9 Acute exacerbation of CHF (congestive heart failure) I50.9
[2021-11-21 13:53] LABS: Blood Gas Operator Identificat JB
--- NOTE | 2021-11-21 15:39 | PC.RESP ---
pt extubated and placed on 4lpm nc. tolerated well
--- NOTE | 2021-11-21 15:51 | PC.NURSE ---
1530 Pt extubated to 4LNC. Tolerated well. Pt able to tell name and . Pt shaved and hair washed. VSS. Will monitor.
--- NOTE | 2021-11-21 16:23 | PC.NURSE ---
Wasted 148ml Fentanyl with Vincenzo HERNANDEZ.
[2021-11-21 16:32] LABS: ANCA Screen NEGATIVE (NEGATIVE)
[2021-11-21 17:15] LABS: Glucose Point of Care 227 mg/dL (70-110)
[2021-11-21] MEDS: pantoprazole 40 mg SDV IVP (17:15)
[2021-11-21] MEDS: enoxaparin 40 mg/0.4 mL Syringe SUBCUT (17:15)
--- NOTE | 2021-11-21 17:45 | PC.NURSE ---
Pt resting comfortably at this time. 4LNC in use. Able to follow commands, able to answer name and . C/O sore throat. Educated that throat may be sore after extubation. Bedside swallow eval performed, pt does well with pudding and ice chips but does need tend to fall asleep easily and needs to be awakened to swallow food. Pt educated that he may require bipap this HS, pt verbalizes understanding. VSS. Will monitor.
[2021-11-21 21:07] LABS: Glucose Point of Care 224 mg/dL (70-110)
[2021-11-22] VITALS (102 sets, daily range): BP systolic 90–176; BP diastolic 57–103; PULSE 83–117; RESP 10–26; TEMP 36.3–37.1; O2SAT 86–100
[2021-11-22] MEDS: ipratropium-albuterol 3 mL Neb INHALATION ×6 (03:20→23:42)
[2021-11-22 04:13] LABS: Basophils # 0.1 10^3/uL (0.0-0.1); Basophils % 0.5 %; Eosinophils # 0.3 10^3/uL (0.0-0.8); Eosinophils % 3.1 %; Hematocrit 37.3 % (42.0-52.0); Hemoglobin 12.3 g/dL (11.7-16.6); Lymphocytes # 1.4 10^3/uL (0.8-4.8); Lymphocytes % 12.9 %; Mean Corpuscular Hemoglobin 30.1 pg (28.0-34.0); Mean Corpuscular Volume 91.2 fl (80-94); Mean Platelet Volume 11.2 fL (7.4-10.4); Monocytes # 1.2 10^3/uL (0.2-0.9); Monocytes % 11.8 %; Neutrophils # 7.47 10^3/uL (1.8-7.7); Neutrophils % 70.8 %; Nucleated Red Blood Cells % 0 %; Platelet Count 141 10^3/cmm (130-400); Red Blood Count 4.09 10^6/uL (4.1-5.3); Red Cell Distribution Width 13.1 % (12.1-15.1); White Blood Count 10.5 10^3/uL (4.0-10.0)
[2021-11-22 04:24] LABS: INR 1.01 (0.8-1.2)
[2021-11-22 04:34] LABS: Lactate (Lactic Acid level) 1.1 mmol/L (0.5-2.2)
[2021-11-22 04:52] LABS: NT Pro B Type Natriuretic Pept 632 pg/mL (0-125); Procalcitonin 0.22 ng/mL (0-0.5)
[2021-11-22 05:11] LABS: Alanine Aminotransferase 31 U/L (0-41); Albumin Level 3.7 g/dL (3.5-5.2); Alkaline Phosphatase 56 IU/L (40-130); Anion Gap 17.4 (5-19); Aspartate Amino Transferase 80 U/L (0-40); Blood Urea Nitrogen 39 mg/dL (8-23); C Reactive Protein 168.5 mg/L (0.0-4.9); Calcium 9.4 mg/dL (8.5-10.5); Carbon Dioxide 31 mmol/L (22-29); Chloride 94 mmol/L (98-107); Globulin 3.8 g/dL (1.3-4.6); Glomerular Filtration Rate 68.3 mL/min (90-130); Glucose 196 mg/dL (65-115); Magnesium 2.5 mg/dL (1.7-2.3); Osmolality Calculated 301 mOsm/kg (285-295); Phosphorus 4.8 mg/dL (2.5-4.5); Potassium 4.4 mmol/L (3.5-5.1); Sodium 138 mmol/L (136-145); Total Bilirubin 0.4 mg/dL (0.15-1.2); Total Protein 7.5 g/dL (6.6-8.7)
[2021-11-22 05:16] LABS: Creatine Phosphokinase 1473 U/L (39-308)
[2021-11-22] MEDS: morphine 4 mg/mL SDV 1 mL 2 MG IVP (06:36)
[2021-11-22 07:33] LABS: Glucose Point of Care 211 mg/dL (70-110)
[2021-11-22] MEDS: FUROsemide 10 mg/mL SDV 4mL 40 MG IVP ×2 (08:19→16:52)
[2021-11-22] MEDS: sennosides-docusate Tablet 2 TAB OG-TUBE (08:19)
[2021-11-22] MEDS: sertraline 50 mg Tablet PO (08:19)
[2021-11-22] MEDS: insulin lispro 100 unit/1 mL SUBCUT ×3 (08:19→17:05)
[2021-11-22] MEDS: gabapentin 300 mg Capsule PO ×3 (08:19→21:05)
--- NOTE | 2021-11-22 08:44 | PC.SOCIAL ---
IMM UPDATED IMM dated and initialed copy given to patient and placed in chart.
[2021-11-22] MEDS: linezolid premix 600 MG/300 ML PREMIX 300 MG IV ×2 (10:12→21:04)
[2021-11-22 10:30] LABS: ABG PCO2 44.7 mmHg (35-45); ABG PH Result 7.45 (7.35-7.45); Alveolar-Arterial Oxygen Gradi 17.9 mmHg (5-10); Arterial Blood Gas Hematocrit 40.4 % (42-52); Base Excess ABG 5.9 mmol/L (-2.0-2.0); Blood Gas Allen Test Pos; Blood Gas Operator Identificat BD; Blood Gas Sample Site Radial, right; Blood Gas Sample Type Arterial; Carboxyhemoglobin 1.3 %THgb (0.4-20.1); HCO3 ABG 30.8 mmol/L (22-26); HGB O2 Sat 92.3 % (95-100); Ionized Calcium Level - ABG 1.2 mmol/L (1.1-1.4); Methemoglobin 0.8 % (0.4-1.5); Oxygen Device NC; Oxygen Saturation ABG 94.3; PO2 ABG 64.8 mmHg (80.0-100.0); Potassium Level - ABG 4.7 mmol/L (3.5-5.0); Total Hemoglobin 13.2 g/dL (14-18)
[2021-11-22 11:26] LABS: Glucose Point of Care 300 mg/dL (70-110)
[2021-11-22] MEDS: HYDROcodone-acetaminophen 10-325 mg Tablet 2 TAB PO ×2 (11:59→14:53)
[2021-11-22] MEDS: insulin glargine 100 units/1 mL 5 UNIT SUBCUT (13:42)
[2021-11-22] MEDS: metOLazone 5 MG Tablet PO (13:43)
--- NOTE | 2021-11-22 15:03 | PM.PN ---
Subjective Subjective: Patient was seen this morning, he was extubated yesterday afternoon, to 2 L, up to 4 L now, he is alert to person, to place, to time, family members at bedside, he does have episodes of confusion, he thinks that I am the infectious disease doctor that took care of him when he was hospitalized for his necrotizing fasciitis, no acute events overnight, he was afebrile overnight, he sitting up in a chair, continues to have a cough, Vitals/I&O/Wt Last Vital Signs Temp 98.5 F 11/22/21 12:00 Pulse 108 H 11/22/21 14:00 Resp 16 11/22/21 12:30 BP 135/89 11/22/21 12:30 Pulse Ox 98 11/22/21 12:30 O2 Del Method 11/22/21 11:20 O2 Flow Rate 4 11/22/21 11:20 FiO2 35 11/22/21 00:00 11/22/21 11/22/21 11/22/21 06:59 14:59 22:59 Intake Total 400 / 1738.483 580 / 580 Output Total 750 / 2650 Balance -350 / -911.517 580 / 580 Weight last 48 hrs Weight 165.788 kg Weight 174.043 kg Physical Exam Const: COMMON NORMALS: no acute distress and patient oriented x3 Resp: COMMON NORMALS: normal respiratory effort, No retractions, No use of accessory muscles and clear to auscultation bilaterally AUSCULTATION: clear to auscultation bilaterally Cardio: COMMON NORMALS: regular rate, regular rhythm, S1 normal heart sound present and S2 normal heart sound present RATE: regular rate RHYTHM: regular rhythm HEART SOUNDS: S1 normal heart sound present and S2 normal heart sound present GI: COMMON NORMALS: Normal to inspection, nondistended, normoactive bowel sounds present and non-tender Extremity: NARRATIVE EXTREMITY EXAM: 1+ pitting edema bilateral extremity Neuro: COMMON NORMALS: patient oriented x3 Psych: COMMON NORMALS: mental status grossly normal Urinary Catheter Management: Leone: Cath Placed During This Visit: yes Reason for Continuing Indwelling Catheter: Accurate Measurement of Urinary Output in Critically Ill Patients Urinary Catheter Date of Insertion: 11/17/21 Urinary Catheter Time of Insertion: 18:15 Data : 11/22/21 03:25 11/22/21 03:52 Micro: Microbiology 11/19/21 09:42 Gram Stain - Final Sputum - Endotracheal Tube Aspirate Sputum Culture - Final Corynebacterium species 11/20/21 15:30 Gram Stain - Final Sputum - Endotracheal Tube Aspirate Sputum Culture - Preliminary 11/19/21 10:10 Urine Culture - Final Urine Catheterized A&P Assessment and plan (1) Sinus bradycardia: Status: Acute (2) Ileus: Status: Acute (3) Poor venous access: Status: Acute (4) Constipation: Status: Acute (5) Acute renal failure: Status: Acute (6) Hypercarbia: Status: Acute (7) Acute hyperkalemia: Status: Acute (8) Acute and chronic respiratory failure with hypoxia: Status: Acute (9) Shock: Status: Acute (10) Acute exacerbation of CHF (congestive heart failure): Status: Acute Plan Acute hypoxic hypercarbic respiratory failure -Patient's sudden decompensation , likely a component of hypercarbia, acute encephalopathy, possible aspiration, acute flash pulmonary edema acute diastolic CHF exacerbation -Status postextubation 11/21/2021 -- 6 L, edema improving -Currently on 4 L Plan -Continue to monitor respiratory status -Continue broad-spectrum antibiotic therapy -PT OT, speech therapy eval -1 dose of metolazone, daily dose Lasix based on urine output -Aldactone 25 mg once daily -Advance diet as tolerated -Lovenox for DVT prophylaxis -Protonix for GI prophylaxis -Status stable, prognosis is guarded -Pulmonary on consult Fevers -Afebrile for the last 12 hours -Cyclic fever syndrome, 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 -Blood cultures, sputum culture so far negative -Repeat blood cultures, so far negative -Repeat sputum cultures, so far negative -Right dialysis catheter removed, culture tip -Left central line in place, culture tripped -UA, urine culture -Pro-Osbaldo 0.29, CRP 84.4 -COVID, flu negative -Bilateral venous ultrasound negative for DVT -CT head, CT chest abdomen pelvis, CT abdomen without any focal source of infection -Possible withdrawal, resume sertraline, gabapentin, decrease dose of hydrocodone -Possible serotonin syndrome, -Possible aspiration -Continue Zyvox -Continue Primaxin -Follow cultures, de-escalate antibiotics based on clinical progress Sinus bradycardia, with shock -Resolved -Heart rates as low as 20s, blood pressure 60s over 40s -Secondary to acute hyperkalemia -Yesterday evening -He never lost his pulse, he never lost a blood pressure -Status post 3 g of atropine, requiring up to 20 of Levophed, currently down to 10 during dialysis dopamine titrating down, external pacing currently off, treatment of hyperkalemia as below -Continues to have sinus bradycardia, P waves present, no QRS prolongation, peak T waves still present -Continue telemetry monitoring -Cardiac echo -Study is poor in quality.? The patient is on a ventilator.? ?Intravenous echo contrast was used.? The ventricle is probably ?normal in size and function.? No obvious regional wall motion ?disturbances.? Diastolic function not evaluated.? Overall ?ejection fraction is within normal limits and approximately 60%. ?Mildly increased left atrial size. -I have consulted cardiology -Currently no need for pacemaker placement, external pacing, hemodynamically stable Shock -Resolved -Likely secondary to sedating medication, dialysis -Levophed as needed Acute hyperkalemia -Resolved -Likely secondary to acute renal failure -With sinus bradycardia, flattening of T waves, peaked T waves, QRS prolongation, EKG changes -Status post 3 doses of 1 g calcium chloride, 20 units IV push insulin with D50, sodium bicarb, Kayexalate, Xopenex -Currently responsive to dialysis -Potassium 5.5 Acute renal failure as above, resolved, secondary to Celebrex, diuretic therapy, rhabdomyolysis, resolved Rhabdomyolysis, CPK over 1999, minimize propofol, monitor propofol infusion syndrome Morbid obesity, intubation as above Type 2 diabetes mellitus, A1c 8.8, continue low-dose sliding scale Evidence of ileus, significant constipation, has had 2 bowel movements, continue bowel regimen Attestations Medical Necessity Statement*: Patient requires hospitalization for acute respiratory failure, acute renal failure, cyclic fevers Coding Level of Care Code Acute Engineering Inspector for Chg Fwd Diagnoses Sinus bradycardia R00.1 Ileus K56.7 Poor venous access I87.8 Constipation K59.00 Acute renal failure N17.9 Hypercarbia R06.89 Acute hyperkalemia E87.5 Acute and chronic respiratory failure with hypoxia J96.21 Shock R57.9 Acute exacerbation of CHF (congestive heart failure) I50.9
[2021-11-22] MEDS: spironolactone 25 mg Tablet PO (16:51)
[2021-11-22] MEDS: enoxaparin 40 mg/0.4 mL Syringe SUBCUT (16:51)
[2021-11-22 17:07] LABS: Glucose Point of Care 276 mg/dL (70-110)
--- NOTE | 2021-11-22 17:40 | PC.NURSE ---
Pt resting in bed. AAOx4. Makes all needs known. O2@4LNC in use. Pt able to get up on side of bed and to chair with moderate assistance and walker. Uses BSC with assist. PIV to COURTNEY in place. No issues noted. CLWR, Sr up x 3. at bedside. Will monitor.
--- NOTE | 2021-11-22 19:00 | PC.NURSE ---
Discontinued Precedex drip not infusing at time of shift change.
[2021-11-23] VITALS (55 sets, daily range): BP systolic 90–139; BP diastolic 49–106; PULSE 87–119; RESP 12–24; TEMP 36.7–38.1; O2SAT 86–99
[2021-11-23] MEDS: ipratropium-albuterol 3 mL Neb INHALATION ×6 (03:43→23:01)
[2021-11-23 03:54] LABS: Basophils % 0.5 %; Eosinophils # 0.5 10^3/uL (0.0-0.8); Eosinophils % 5.2 %; Hematocrit 36.4 % (42.0-52.0); Lymphocytes # 0.8 10^3/uL (0.8-4.8); Lymphocytes % 9.7 %; Mean Corpuscular Hemoglobin 29.9 pg (28.0-34.0); Mean Corpuscular Volume 90.8 fl (80-94); Mean Platelet Volume 10.8 fL (7.4-10.4); Monocytes # 1.1 10^3/uL (0.2-0.9); Monocytes % 12.9 %; Neutrophils # 6.11 10^3/uL (1.8-7.7); Neutrophils % 70.9 %; Nucleated Red Blood Cells % 0 %; Platelet Count 154 10^3/cmm (130-400); Red Blood Count 4.01 10^6/uL (4.1-5.3); White Blood Count 8.6 10^3/uL (4.0-10.0)
[2021-11-23 03:55] LABS: ABG PCO2 46.7 mmHg (35-45); ABG PH Result 7.47 (7.35-7.45); Arterial Blood Gas Hematocrit 38.8 % (42-52); Base Excess ABG 9.2 mmol/L (-2.0-2.0); Blood Gas Allen Test Pos; Blood Gas Sample Site Radial, right; Blood Gas Sample Type Arterial; HCO3 ABG 34.1 mmol/L (22-26); Oxygen Device NC; PO2 ABG 73.2 mmHg (80.0-100.0)
[2021-11-23 04:34] LABS: Alanine Aminotransferase 28 U/L (0-41); Albumin Level 3.6 g/dL (3.5-5.2); Alkaline Phosphatase 56 IU/L (40-130); Anion Gap 17.3 (5-19); Aspartate Amino Transferase 58 U/L (0-40); Blood Urea Nitrogen 48 mg/dL (8-23); C Reactive Protein 132.4 mg/L (0.0-4.9); Calcium 9.4 mg/dL (8.5-10.5); Carbon Dioxide 31 mmol/L (22-29); Chloride 88 mmol/L (98-107); Globulin 3.9 g/dL (1.3-4.6); Glomerular Filtration Rate 61.8 mL/min (90-130); Glucose 203 mg/dL (65-115); Magnesium 2.2 mg/dL (1.7-2.3); NT Pro B Type Natriuretic Pept 569 pg/mL (0-125); Osmolality Calculated 292 mOsm/kg (285-295); Phosphorus 3.2 mg/dL (2.5-4.5); Potassium 4.3 mmol/L (3.5-5.1); Sodium 132 mmol/L (136-145); Total Bilirubin 0.6 mg/dL (0.15-1.2); Total Protein 7.5 g/dL (6.6-8.7)
[2021-11-23 04:39] LABS: Creatine Phosphokinase 765 U/L (39-308)
[2021-11-23] MEDS: acetaminophen 325 mg Tablet 650 MG PO (07:50)
[2021-11-23 08:24] LABS: Glucose Point of Care 201 mg/dL (70-110)
[2021-11-23] MEDS: gabapentin 300 mg Capsule PO ×3 (08:28→20:57)
[2021-11-23] MEDS: sennosides-docusate Tablet 2 TAB OG-TUBE (08:28)
[2021-11-23] MEDS: sertraline 50 mg Tablet PO (08:29)
[2021-11-23] MEDS: spironolactone 25 mg Tablet PO (08:29)
[2021-11-23] MEDS: pantoprazole DR 40 mg Tablet PO (08:29)
--- NOTE | 2021-11-23 08:32 | P.PN_ITS ---
Subjective Subjective: He is choking up some especially on liquids if they are not thickened. He is working with speech therapy. He otherwise has been getting up with physical therapy. Overall feels he is improving. Vitals/I&O/Wt Last Vital Signs Temp 98.7 F 11/23/21 04:00 Pulse 91 11/23/21 06:00 Resp 19 H 11/23/21 04:00 BP 139/106 11/23/21 04:15 Pulse Ox 91 11/23/21 04:15 O2 Del Method 11/23/21 03:44 O2 Flow Rate 4 11/23/21 03:44 FiO2 35 11/22/21 00:00 11/22/21 11/23/21 11/23/21 22:59 06:59 14:59 Intake Total 700 / 1280 100 / 1380 Output Total 2150 / 2150 1800 / 3950 Balance -1450 / -870 -1700 / -2570 Weight last 48 hrs Weight 163.203 kg Weight 165.788 kg Physical Exam Narrative: Family at bedside. Const: COMMON NORMALS: patient oriented x3 and alert GENERAL APPEARANCE: cooperative NUTRITIONAL APPEARANCE: obese ORIENTATION/CONSCIOUSNESS: Yes awake HENMT: COMMON NORMALS: oropharynx normal Neck/C-Spine: COMMON NORMALS: no JVD Resp: COMMON NORMALS: normal respiratory effort and clear to auscultation bilaterally AUSCULTATION: clear to auscultation bilaterally Cardio: COMMON NORMALS: no JVD, regular rhythm, S1 normal heart sound present, S2 normal heart sound present and No murmurs present (Cardio) RHYTHM: regular rhythm HEART SOUNDS: S1 normal heart sound present and S2 normal heart sound present GI: COMMON NORMALS: Normal to inspection, nondistended, normoactive bowel sounds present, Soft to palpation and non-tender PALPATION: Yes Soft to palpation Extremity: COMMON NORMALS: no joint enlargement GENERAL: Yes edema Neuro: COMMON NORMALS: patient oriented x3 and moves all extremities SENSORIUM/ORIENTATION: Yes alert Skin: COMMON NORMALS: no rashes or lesions noted GENERAL SKIN EXAM: no rashes or lesions noted Urinary Catheter Management: Leone: Cath Placed During This Visit: yes Reason for Continuing Indwelling Catheter: Accurate Measurement of Urinary Output in Critically Ill Patients Urinary Catheter Date of Insertion: 11/17/21 Urinary Catheter Time of Insertion: 18:15 Data : 11/23/21 03:29 11/23/21 03:29 Micro: Microbiology 11/17/21 21:32 Blood Culture - Final Blood NO GROWTH AFTER 5 DAYS 11/17/21 21:28 Blood Culture - Final Blood NO GROWTH AFTER 5 DAYS 11/20/21 15:30 Gram Stain - Final Sputum - Endotracheal Tube Aspirate Sputum Culture - Final 11/21/21 10:15 Catheter Tip Culture - Preliminary Other Source 11/21/21 12:00 Catheter Tip Culture - Preliminary Central Line A&P Assessment and plan (1) Acute and chronic respiratory failure with hypoxia: Multifactorial including aspiration pneumonia, fluid overload on presentation, currently doing well on 4 L nasal cannula, may be able to continue to decrease. Likely will need oxygen at discharge. Still aspirating some with liquids that are thickened. Continue to work with speech therapy. Has not felt that the flutter valve has helped him very much. Uses incentive spirometer. Continue empiric antibiotics. Discussed with him also consideration for sleep study after discharge. Status: Acute (2) Sinus bradycardia: Resolved Heart rates are more on the faster side, 90s-low 100s while sitting up. Monitor on telemetry. May consider repeat twelve-lead EKG. Status: Acute (3) Ileus: So far appears resolved, tolerating oral intake. Status: Acute (4) Poor venous access: Status: Acute (5) Constipation: Status: Acute (6) Acute renal failure: Improving Status: Acute (7) Hypercarbia: Status: Acute (8) Acute hyperkalemia: Resolved Status: Acute (9) Shock: Resolved Status: Acute (10) Acute exacerbation of CHF (congestive heart failure): Continue diuretics, monitor I&O. Status: Acute (11) Rhabdomyolysis: Improving Status: Acute Plan Fevers: Resolved, possibly secondary to aspiration pneumonia. Noted coagulase negative staph growth on culture of tip from both intravenous catheters. Blood cultures negative. Continue empiric antibiotic coverage. Check procalcitonin. Morbid obesity Type 2 diabetes mellitus, A1c 8.8, continue low-dose sliding scale Attestations Medical Necessity Statement*: Continue admission for assessment of management of hypoxic respiratory failure. Disposition planning. Coding Level of Care Code Acute Certified Recreational Therapist for [facility] Diagnoses Acute and chronic respiratory failure with hypoxia J96.21 Sinus bradycardia R00.1 Ileus K56.7 Poor venous access I87.8 Constipation K59.00 Acute renal failure N17.9 Hypercarbia R06.89 Acute hyperkalemia E87.5 Shock R57.9 Acute exacerbation of CHF (congestive heart failure) I50.9 Rhabdomyolysis M62.82
[2021-11-23] MEDS: insulin lispro 100 unit/1 mL SUBCUT ×3 (08:34→17:40)
[2021-11-23] MEDS: linezolid premix 600 MG/300 ML PREMIX 300 MG IV ×2 (10:03→22:22)
--- NOTE | 2021-11-23 11:03 | PC.NURSE ---
transfer orders noted. Processed transfer at this time while awaiting bed availability on [facility]-surg
[2021-11-23 11:20] LABS: Glucose Point of Care 287 mg/dL (70-110)
[2021-11-23] MEDS: HYDROcodone-acetaminophen 10-325 mg Tablet 2 TAB PO (12:10)
[2021-11-23 14:23] LABS: Cytomegalovirus Antibody (IGG) <0.60 U/mL; Cytomegalovirus Antibody (IGM) <30.00 AU/mL
--- NOTE | 2021-11-23 14:59 | ECG_ITS ---
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 Measurements Intervals [place] Rate: 91 P: 105 AR: 172 QRS: -12 QRSD: 103 T: 47 QT: 359 QTc: 443 Interpretive Statements SINUS RHYTHM WITH OCCASIONAL SUPRAVENTRICULAR PREMATURE COMPLEXES LOW QRS VOLTAGE IN PRECORDIAL LEADS [QRS DEFLECTION < 1.0 mV IN CHEST LEADS] Compared to ECG 11/18/2021 01:28:54 Indeterminate axis no longer present Incomplete right bundle-branch block no longer present Electronically Signed On 11-24-2021 21:22:03 CDT by Alex Quintero M.D. [id number]
[2021-11-23 17:36] LABS: Glucose Point of Care 353 mg/dL (70-110)
[2021-11-23] MEDS: enoxaparin 40 mg/0.4 mL Syringe SUBCUT (17:54)
--- NOTE | 2021-11-23 19:54 | PC.NURSE ---
Called report to Beverly in med/surg. Patient transfering to [facility]. All questions answered.
[2021-11-23] MEDS: metoprolol tartrate 25 mg Tablet 12.5 MG PO (20:57)
[2021-11-23 21:13] LABS: Glucose Point of Care 253 mg/dL (70-110)
[2021-11-24] VITALS (44 sets, daily range): BP systolic 80–146; BP diastolic 41–105; PULSE 47–113; RESP 0–24; TEMP 36.8–37.9; O2SAT 90–98
[2021-11-24] MEDS: HYDROcodone-acetaminophen 10-325 mg Tablet 2 TAB PO ×2 (01:53→20:21)
[2021-11-24] MEDS: ipratropium-albuterol 3 mL Neb INHALATION ×6 (03:15→23:24)
[2021-11-24 04:37] LABS: Basophils % 0.5 %; Eosinophils # 0.3 10^3/uL (0.0-0.8); Eosinophils % 4.9 %; Hematocrit 33.9 % (42.0-52.0); Hemoglobin 10.8 g/dL (11.7-16.6); Lymphocytes # 0.8 10^3/uL (0.8-4.8); Lymphocytes % 12.9 %; Mean Corpuscular HGB Conc 31.9 g/dL (30.0-36.0); Mean Corpuscular Hemoglobin 30.1 pg (28.0-34.0); Mean Corpuscular Volume 94.4 fl (80-94); Mean Platelet Volume 11.4 fL (7.4-10.4); Monocytes # 1.1 10^3/uL (0.2-0.9); Neutrophils # 3.65 10^3/uL (1.8-7.7); Neutrophils % 61.2 %; Nucleated Red Blood Cells % 0 %; Platelet Count 157 10^3/cmm (130-400); Red Blood Count 3.59 10^6/uL (4.1-5.3); Red Cell Distribution Width 13.1 % (12.1-15.1)
[2021-11-24 07:42] LABS: Glucose Point of Care 182 mg/dL (70-110)
[2021-11-24 07:58] LABS: NT Pro B Type Natriuretic Pept 493 pg/mL (0-125); Procalcitonin 0.26 ng/mL (0-0.5)
[2021-11-24 08:09] LABS: Alanine Aminotransferase 29 U/L (0-41); Albumin Level 3.6 g/dL (3.5-5.2); Alkaline Phosphatase 55 IU/L (40-130); Blood Urea Nitrogen 50 mg/dL (8-23); C Reactive Protein 73.1 mg/L (0.0-4.9); Calcium 9.2 mg/dL (8.5-10.5); Carbon Dioxide 32 mmol/L (22-29); Chloride 88 mmol/L (98-107); Globulin 3.4 g/dL (1.3-4.6); Glomerular Filtration Rate 76.2 mL/min (90-130); Glucose 192 mg/dL (65-115); Osmolality Calculated 293 mOsm/kg (285-295); Sodium 132 mmol/L (136-145); Total Bilirubin 0.5 mg/dL (0.15-1.2)
[2021-11-24] MEDS: spironolactone 25 mg Tablet PO (08:29)
[2021-11-24] MEDS: sertraline 50 mg Tablet PO (08:29)
[2021-11-24] MEDS: pantoprazole DR 40 mg Tablet PO (08:30)
[2021-11-24] MEDS: sennosides-docusate Tablet 2 TAB OG-TUBE (08:30)
[2021-11-24] MEDS: insulin lispro 100 unit/1 mL SUBCUT ×3 (08:30→17:13)
[2021-11-24] MEDS: gabapentin 300 mg Capsule PO ×3 (08:30→20:22)
[2021-11-24 08:37] LABS: Aspartate Amino Transferase 47 U/L (0-40)
[2021-11-24 08:38] LABS: Creatine Phosphokinase 355 U/L (39-308)
[2021-11-24] MEDS: metoprolol tartrate 25 mg Tablet 12.5 MG PO ×2 (08:59→20:22)
--- NOTE | 2021-11-24 09:24 | PC.NURSE ---
Report called to Jennifer HERNANDEZ
--- NOTE | 2021-11-24 09:37 | PC.NURSE ---
Pt transferred to room 255-1. Assisted to bed and CLWR.
[2021-11-24 10:58] LABS: Glucose Point of Care 315 mg/dL (70-110)
[2021-11-24] MEDS: linezolid premix 600 MG/300 ML PREMIX 300 MG IV (11:46)
[2021-11-24 15:42] LABS: Glucose Point of Care 265 mg/dL (70-110)
[2021-11-24] MEDS: enoxaparin 40 mg/0.4 mL Syringe SUBCUT (17:13)
--- NOTE | 2021-11-24 20:19 | P.PN_ITS ---
Subjective Subjective: He had again an episode of low-grade fever last night. Discussed with him and his family. He is overall doing better and has been working with therapy. Discussed with him and his family also regarding results of dialysis and central line catheter cultures. Discussed repeated blood culture. Vitals/I&O/Wt Last Vital Signs Temp 99.3 F 11/24/21 15:34 Pulse 111 H 11/24/21 15:34 Resp 16 11/24/21 15:34 BP 124/73 11/24/21 15:34 Pulse Ox 94 11/24/21 15:34 O2 Del Method 11/24/21 15:34 O2 Flow Rate 2 11/24/21 11:00 FiO2 2 11/24/21 15:00 11/24/21 11/24/21 11/24/21 06:59 14:59 22:59 Intake Total 740 / 2540 340 / 340 300 / 640 Output Total 1400 / 2200 600 / 600 Balance -660 / 340 -260 / -260 300 / 40 Weight last 48 hrs Weight 163.203 kg Physical Exam Narrative: Family at bedside. Const: COMMON NORMALS: patient oriented x3 and alert GENERAL APPEARANCE: cooperative NUTRITIONAL APPEARANCE: obese ORIENTATION/CONSCIOUSNESS: Yes awake HENMT: COMMON NORMALS: oropharynx normal Neck/C-Spine: COMMON NORMALS: no JVD Resp: COMMON NORMALS: normal respiratory effort and clear to auscultation bilaterally AUSCULTATION: clear to auscultation bilaterally Cardio: COMMON NORMALS: no JVD, regular rhythm, S1 normal heart sound present, S2 normal heart sound present and No murmurs present (Cardio) RHYTHM: regular rhythm HEART SOUNDS: S1 normal heart sound present and S2 normal heart sound present GI: COMMON NORMALS: Normal to inspection, nondistended, normoactive bowel sounds present, Soft to palpation and non-tender PALPATION: Yes Soft to palpation Extremity: COMMON NORMALS: no joint enlargement GENERAL: Yes edema Neuro: COMMON NORMALS: patient oriented x3 and moves all extremities SENSORIUM/ORIENTATION: Yes alert Skin: COMMON NORMALS: no rashes or lesions noted GENERAL SKIN EXAM: no rashes or lesions noted Urinary Catheter Management: Leone: Cath Placed During This Visit: yes, but has since been removed by the nurse Reason for Continuing Indwelling Catheter: Decision to DC Catheter Urinary Catheter Date of Insertion: 11/17/21 Urinary Catheter Time of Insertion: 18:15 Date Urinary Catheter Removed: 11/24/21 Time Urinary Catheter Discontinued: 07:39 Data : 11/24/21 03:20 11/24/21 06:45 Micro: Microbiology 11/21/21 12:00 Catheter Tip Culture - Final Central Line Staphylococcus epidermidis 11/21/21 10:15 Catheter Tip Culture - Final Other Source Staphylococcus epidermidis 11/19/21 09:02 Blood Culture - Final Blood NO GROWTH AFTER 5 DAYS 11/19/21 08:50 Blood Culture - Final Blood NO GROWTH AFTER 5 DAYS 11/24/21 08:52 Blood Culture - Preliminary Blood SPECIMEN COLLECTED 11/24/21 08:46 Blood Culture - Preliminary Blood SPECIMEN COLLECTED A&P Assessment and plan (1) Fever: Again choked up on some milk yesterday morning. Today did well with speech therapy and so his nectar thick liquids restriction was dropped. Discussed with speech therapy again regarding episode of likely aspiration yesterday morning. He was reassessed additionally today with finding that he intermittently takes big gulps of drinks which was discussed with him by speech therapy closely assess tomorrow. Unfortunately he could not undergo MBS which was considered initially due to physical restrictions on the chair. If he is under co nsideration in case suspected additional aspiration. In addition with recurrent fevers discussed also with him and his family regarding positive cultures from the tip of dialysis and central line catheters. Appears to have multidrug-resistant staph epidermidis growing in both. Unclear whether this is heavy growth on his skin, or actual catheter infection. Discussed with them we did request additional blood culture to be assessed today. Will need to follow-up. Linezolid and Levaquin. Status: Acute (2) Acute and chronic respiratory failure with hypoxia: Showing gradual improvement, weaning down on oxygen requirement, currently down to 2 L, although does appear to have some recurrence of aspiration when he is not careful. Continue speech therapy follow-up, additional assessment. Continue antibiotic coverage with Levaquin, linezolid. Multifactorial including aspiration pneumonia, fluid overload on presentation, currently doing well on 4 L nasal cannula, may be able to continue to decrease. Likely will need oxygen at discharge. Still aspirating some with liquids that are thickened. Continue to work with speech therapy. Has not felt that the flutter valve has helped him very much. Uses incentive spirometer. Continue empiric antibiotics. Discussed with him also consideration for sleep study after discharge. Status: Acute (3) Sinus bradycardia: Resolved Heart rates are more on the faster side, 90s-low 100s while sitting up. Monitor on telemetry. May consider repeat twelve-lead EKG. Status: Acute (4) Ileus: So far appears resolved, tolerating oral intake. Status: Acute (5) Poor venous access: Status: Acute (6) Constipation: Status: Acute (7) Acute renal failure: Improving Status: Acute (8) Hypercarbia: Status: Acute (9) Acute hyperkalemia: Resolved Status: Acute (10) Shock: Resolved Status: Acute (11) Acute exacerbation of CHF (congestive heart failure): Continue diuretics, monitor I&O. Status: Acute (12) Rhabdomyolysis: Improving Status: Acute Plan Fevers: Resolved, possibly secondary to aspiration pneumonia. Noted coagulase negative staph growth on culture of tip from both intravenous catheters. Blood cultures negative. Continue empiric antibiotic coverage. Check procalcitonin. Morbid obesity Type 2 diabetes mellitus, A1c 8.8, continue low-dose sliding scale Attestations Medical Necessity Statement*: Continue admission for assessment of management of recurrent fever, aspiration pneumonia, additional assessment for possible additional nidus of infection with noted catheter tip cultures positive for multidrug-resistant Staph epidermidis, assess for bacteremia. Coding Level of Care Code Acute Door To Door Selling Agent for [facility] F[facility] Diagnoses Fever R50.9 Acute and chronic respiratory failure with hypoxia J96.21 Sinus bradycardia R00.1 Ileus K56.7 Poor venous access I87.8 Constipation K59.00 Acute renal failure N17.9 Hypercarbia R06.89 Acute hyperkalemia E87.5 Shock R57.9 Acute exacerbation of CHF (congestive heart failure) I50.9 Rhabdomyolysis M62.82
[2021-11-24] MEDS: linezolid 600 mg Tablet PO (21:37)
[2021-11-24 22:17] LABS: Glucose Point of Care 197 mg/dL (70-110)
[2021-11-25] VITALS (13 sets, daily range): BP systolic 103–156; BP diastolic 63–96; PULSE 82–110; RESP 12–16; TEMP 36.8–37.2; O2SAT 80–97
[2021-11-25] MEDS: ipratropium-albuterol 3 mL Neb INHALATION ×6 (03:29→23:44)
[2021-11-25 04:39] LABS: Basophils % 0.5 %; Eosinophils # 0.2 10^3/uL (0.0-0.8); Eosinophils % 2.3 %; Hematocrit 33.9 % (42.0-52.0); Hemoglobin 11.1 g/dL (11.7-16.6); Lymphocytes % 11.4 %; Mean Corpuscular HGB Conc 32.7 g/dL (30.0-36.0); Mean Corpuscular Hemoglobin 29.8 pg (28.0-34.0); Mean Corpuscular Volume 91.1 fl (80-94); Mean Platelet Volume 10.9 fL (7.4-10.4); Monocytes # 1.9 10^3/uL (0.2-0.9); Monocytes % 22.7 %; Neutrophils # 5.26 10^3/uL (1.8-7.7); Neutrophils % 61.7 %; Nucleated Red Blood Cells % 0 %; Platelet Count 154 10^3/cmm (130-400); Red Blood Count 3.72 10^6/uL (4.1-5.3); Red Cell Distribution Width 13.2 % (12.1-15.1); White Blood Count 8.5 10^3/uL (4.0-10.0)
[2021-11-25 05:04] LABS: Alanine Aminotransferase 30 U/L (0-41); Albumin Level 3.2 g/dL (3.5-5.2); Alkaline Phosphatase 58 IU/L (40-130); Aspartate Amino Transferase 44 U/L (0-40); Blood Urea Nitrogen 43 mg/dL (8-23); Calcium 9.4 mg/dL (8.5-10.5); Carbon Dioxide 31 mmol/L (22-29); Chloride 89 mmol/L (98-107); Glomerular Filtration Rate 76.2 mL/min (90-130); Glucose 219 mg/dL (65-115); Osmolality Calculated 294 mOsm/kg (285-295); Sodium 133 mmol/L (136-145); Total Bilirubin 0.6 mg/dL (0.15-1.2); Total Protein 7.2 g/dL (6.6-8.7)
[2021-11-25 05:08] LABS: Anion Gap 17.9 (5-19); Potassium 4.9 mmol/L (3.5-5.1)
[2021-11-25 05:36] LABS: Creatine Phosphokinase 271 U/L (39-308); NT Pro B Type Natriuretic Pept 775 pg/mL (0-125)
[2021-11-25 06:29] LABS: Glucose Point of Care 226 mg/dL (70-110)
[2021-11-25] MEDS: levoFLOXacin 750 mg Tablet PO (06:41)
[2021-11-25] MEDS: pantoprazole DR 40 mg Tablet PO (08:48)
[2021-11-25] MEDS: metoprolol tartrate 25 mg Tablet 12.5 MG PO ×2 (08:48→20:19)
[2021-11-25] MEDS: insulin lispro 100 unit/1 mL SUBCUT ×3 (08:48→17:28)
[2021-11-25] MEDS: sertraline 50 mg Tablet PO (08:48)
[2021-11-25] MEDS: sennosides-docusate Tablet 2 TAB OG-TUBE (08:48)
[2021-11-25] MEDS: gabapentin 300 mg Capsule PO ×3 (08:49→20:19)
[2021-11-25] MEDS: spironolactone 25 mg Tablet PO (08:49)
[2021-11-25] MEDS: linezolid 600 mg Tablet PO ×2 (09:01→20:19)
[2021-11-25] MEDS: HYDROcodone-acetaminophen 10-325 mg Tablet 2 TAB PO ×2 (09:02→20:22)
[2021-11-25 11:41] LABS: Glucose Point of Care 249 mg/dL (70-110)
[2021-11-25 17:16] LABS: Aspergillus AG,EIA,Serum NOT DETECTED; Aspergillus Galactomannan Inde <0.50
[2021-11-25 17:22] LABS: Glucose Point of Care 347 mg/dL (70-110)
[2021-11-25] MEDS: enoxaparin 40 mg/0.4 mL Syringe SUBCUT (17:28)
--- NOTE | 2021-11-25 21:21 | PM.PN ---
Subjective Subjective: He overall feels that he is improving. He has discussed with speech therapy and states will be paying attention and avoiding large groups when drinking liquids. He is worked well with physical and compressional therapy. He is looking forward to continuing therapy with rehabilitation after discharge. Vitals/I&O/Wt Last Vital Signs Temp 98.7 F 11/25/21 15:54 Pulse 101 H 11/25/21 19:00 Resp 15 11/25/21 19:00 BP 117/67 11/25/21 15:54 Pulse Ox 95 11/25/21 19:00 O2 Del Method 11/25/21 19:00 O2 Flow Rate 2 11/25/21 19:00 FiO2 2 11/24/21 19:00 11/25/21 11/25/21 11/25/21 06:59 14:59 22:59 Intake Total 480 / 1420 360 / 360 Balance 480 / 820 360 / 360 Weight last 48 hrs Weight 108.862 kg Physical Exam Narrative: Family at bedside. Const: COMMON NORMALS: patient oriented x3 and alert GENERAL APPEARANCE: cooperative NUTRITIONAL APPEARANCE: obese ORIENTATION/CONSCIOUSNESS: Yes awake HENMT: COMMON NORMALS: oropharynx normal Neck/C-Spine: COMMON NORMALS: no JVD Resp: COMMON NORMALS: normal respiratory effort and clear to auscultation bilaterally AUSCULTATION: clear to auscultation bilaterally Cardio: COMMON NORMALS: no JVD, regular rhythm, S1 normal heart sound present, S2 normal heart sound present and No murmurs present (Cardio) RHYTHM: regular rhythm HEART SOUNDS: S1 normal heart sound present and S2 normal heart sound present GI: COMMON NORMALS: Normal to inspection, nondistended, normoactive bowel sounds present, Soft to palpation and non-tender PALPATION: Yes Soft to palpation Extremity: COMMON NORMALS: no joint enlargement GENERAL: Yes edema Neuro: COMMON NORMALS: patient oriented x3 and moves all extremities SENSORIUM/ORIENTATION: Yes alert Skin: COMMON NORMALS: no rashes or lesions noted GENERAL SKIN EXAM: no rashes or lesions noted Urinary Catheter Management: Leone: Cath Placed During This Visit: yes, but has since been removed by the nurse Reason for Continuing Indwelling Catheter: Decision to DC Catheter Urinary Catheter Date of Insertion: 11/17/21 Urinary Catheter Time of Insertion: 18:15 Date Urinary Catheter Removed: 11/24/21 Time Urinary Catheter Discontinued: 07:39 Data : 11/25/21 04:23 11/25/21 04:23 Micro: Microbiology 11/24/21 08:52 Blood Culture - Preliminary Blood NEGATIVE TO DATE 11/24/21 08:46 Blood Culture - Preliminary Blood NEGATIVE TO DATE A&P Assessment and plan (1) Fever: Fever appears to be subsiding. Again I suspect this was due to his episode of aspiration. He is now being more careful, working with speech therapy. Consideration of FEES in case of concern for additional episodes of aspiration as he unfortunately could not have MBS. In addition with recurrent fevers discussed also with him and his family regarding positive cultures from the tip of dialysis and central line catheters. Appears to have multidrug-resistant staph epidermidis growing in both. Unclear whether this is heavy growth on his skin, or actual catheter infection. Discussed with them we did request additional blood culture to be assessed today. Will need to follow-up. Consider surveillance culture with PCP after discharge as well. Linezolid and Levaquin. Status: Acute (2) Acute and chronic respiratory failure with hypoxia: He is gradually improving, down to 2 L nasal cannula. Subjectively is getting better, working with therapy. Continue speech therapy follow-up, additional assessment. Continue antibiotic coverage with Levaquin, linezolid. Multifactorial including aspiration pneumonia, fluid overload on presentation, currently doing well on 4 L nasal cannula, may be able to continue to decrease. Likely will need oxygen at discharge. Still aspirating some with liquids that are thickened. Continue to work with speech therapy. Has not felt that the flutter valve has helped him very much. Uses incentive spirometer. Continue empiric antibiotics. Discussed with him also consideration for sleep study after discharge. Status: Acute (3) Sinus bradycardia: Resolved Heart rates are more on the faster side, 90s-low 100s while sitting up. Monitor on telemetry. May consider repeat twelve-lead EKG. Status: Acute (4) Ileus: So far appears resolved, tolerating oral intake. Status: Acute (5) Poor venous access: Status: Acute (6) Constipation: Status: Acute (7) Acute renal failure: Improving Status: Acute (8) Hypercarbia: Status: Acute (9) Acute hyperkalemia: Resolved Status: Acute (10) Shock: Resolved Status: Acute (11) Acute exacerbation of CHF (congestive heart failure): Continue diuretics, monitor I&O. Status: Acute (12) Rhabdomyolysis: Improving Status: Acute Plan Fevers: Resolved, possibly secondary to aspiration pneumonia. Noted coagulase negative staph growth on culture of tip from both intravenous catheters. Blood cultures negative. Continue empiric antibiotic coverage. Procalcitonin 0.26. Morbid obesity Type 2 diabetes mellitus, A1c 8.8, continue low-dose sliding scale Attestations Medical Necessity Statement*: Continue admission for assessment management of episodes of fever, aspiration, gradually improving hypoxic respite failure, follow-up of blood cultures after resistant bacterial growth on dialysis and central line catheter tip. Coding Level of Care Code Acute Optical Laboratory Mechanic for [facility] Fwd Diagnoses Fever R50.9 Acute and chronic respiratory failure with hypoxia J96.21 Sinus bradycardia R00.1 Ileus K56.7 Poor venous access I87.8 Constipation K59.00 Acute renal failure N17.9 Hypercarbia R06.89 Acute hyperkalemia E87.5 Shock R57.9 Acute exacerbation of CHF (congestive heart failure) I50.9 Rhabdomyolysis M62.82
[2021-11-25 22:24] LABS: Glucose Point of Care 262 mg/dL (70-110)
[2021-11-26] VITALS (15 sets, daily range): BP systolic 117–149; BP diastolic 68–87; PULSE 87–112; RESP 15–18; TEMP 36.7–37.3; O2SAT 93–98; BMI 31.6
[2021-11-26 03:01] LABS: Basophils % 0.5 %; Eosinophils # 0.2 10^3/uL (0.0-0.8); Hematocrit 32.4 % (42.0-52.0); Hemoglobin 10.5 g/dL (11.7-16.6); Lymphocytes # 1.2 10^3/uL (0.8-4.8); Mean Corpuscular HGB Conc 32.4 g/dL (30.0-36.0); Mean Corpuscular Hemoglobin 30.3 pg (28.0-34.0); Mean Corpuscular Volume 93.6 fl (80-94); Mean Platelet Volume 10.8 fL (7.4-10.4); Monocytes # 1.9 10^3/uL (0.2-0.9); Monocytes % 24.2 %; Neutrophils % 54.2 %; Nucleated Red Blood Cells % 0 %; Platelet Count 149 10^3/cmm (130-400); Red Blood Count 3.46 10^6/uL (4.1-5.3); Red Cell Distribution Width 13.2 % (12.1-15.1); White Blood Count 7.7 10^3/uL (4.0-10.0)
[2021-11-26] MEDS: ipratropium-albuterol 3 mL Neb INHALATION ×5 (03:06→21:08)
[2021-11-26 03:31] LABS: Alanine Aminotransferase 32 U/L (0-41); Albumin Level 3.4 g/dL (3.5-5.2); Alkaline Phosphatase 55 IU/L (40-130); Anion Gap 14.9 (5-19); Aspartate Amino Transferase 35 U/L (0-40); Blood Urea Nitrogen 46 mg/dL (8-23); Calcium 9.2 mg/dL (8.5-10.5); Carbon Dioxide 30 mmol/L (22-29); Chloride 89 mmol/L (98-107); Globulin 3.7 g/dL (1.3-4.6); Glomerular Filtration Rate 68.3 mL/min (90-130); Glucose 241 mg/dL (65-115); Osmolality Calculated 290 mOsm/kg (285-295); Potassium 3.9 mmol/L (3.5-5.1); Sodium 130 mmol/L (136-145); Total Bilirubin 0.5 mg/dL (0.15-1.2); Total Protein 7.1 g/dL (6.6-8.7)
[2021-11-26] MEDS: levoFLOXacin 750 mg Tablet PO (06:03)
[2021-11-26 06:45] LABS: Glucose Point of Care 224 mg/dL (70-110)
[2021-11-26] MEDS: HYDROcodone-acetaminophen 10-325 mg Tablet 2 TAB PO (08:44)
[2021-11-26] MEDS: pantoprazole DR 40 mg Tablet PO (08:45)
[2021-11-26] MEDS: sertraline 50 mg Tablet PO (08:45)
[2021-11-26] MEDS: spironolactone 25 mg Tablet PO (08:45)
[2021-11-26] MEDS: sennosides-docusate Tablet 2 TAB OG-TUBE (08:45)
[2021-11-26] MEDS: gabapentin 300 mg Capsule PO ×3 (08:45→21:32)
[2021-11-26] MEDS: metoprolol tartrate 25 mg Tablet 12.5 MG PO ×2 (08:45→21:32)
[2021-11-26] MEDS: insulin lispro 100 unit/1 mL SUBCUT ×3 (08:46→17:42)
[2021-11-26 11:12] LABS: Glucose Point of Care 279 mg/dL (70-110)
[2021-11-26] MEDS: linezolid 600 mg Tablet PO ×2 (11:53→21:31)
--- NOTE | 2021-11-26 12:35 | ECG_ITS ---
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 Measurements Intervals [place] Rate: 107 P: -7 VT: 176 QRS: -52 QRSD: 102 T: 20 QT: 346 QTc: 464 Interpretive Statements SINUS TACHYCARDIA LOW QRS VOLTAGE IN PRECORDIAL LEADS [QRS DEFLECTION < 1.0 mV IN CHEST LEADS] PATTERN CONSISTENT WITH PULMONARY DISEASE INCOMPLETE RIGHT BUNDLE BRANCH BLOCK [90+ ms QRS DURATION, TERMINAL R IN V1/V2, 40+ ms S IN I/aVL/V4/V5/V6] LEFT ANTERIOR FASCICULAR BLOCK [QRS AXIS <= -45, QR IN I, RS IN II] Compared to ECG 11/23/2021 14:59:17 Incomplete right bundle-branch block now present Left anterior fascicular block now present Sinus rhythm no longer present Electronically Signed On 11-26-2021 14:28:43 CDT by Bakari Wynne M.D. [id number]
--- NOTE | 2021-11-26 12:58 | PC.SOCIAL ---
IMM Update pg 2 of IMM updated and reviewed w/ patient and . Copy provided. Copy in chart dated and initialed.
--- NOTE | 2021-11-26 16:45 | P.PN_ITS ---
Subjective Subjective: He is gradually continuing to improve. So far no recurrence of fever, today he is weaning down and off for the first time from oxygen. He has been awaiting decision regarding rehabilitation, but otherwise has been working with physical therapy well. Has been getting up and walking. Vitals/I&O/Wt Last Vital Signs Temp 98.9 F 11/26/21 16:00 Pulse 97 11/26/21 16:00 Resp 16 11/26/21 16:00 BP 149/74 11/26/21 16:00 Pulse Ox 96 11/26/21 16:00 O2 Del Method 11/26/21 16:00 O2 Flow Rate 1.5 11/26/21 08:48 FiO2 2 11/24/21 19:00 11/26/21 11/26/21 11/26/21 06:59 14:59 22:59 Intake Total 0 / 510 720 / 720 Balance 0 / 510 720 / 720 Weight last 48 hrs Weight 108.862 kg Weight 108.862 kg Physical Exam Narrative: Family at bedside. Const: COMMON NORMALS: patient oriented x3 and alert GENERAL APPEARANCE: cooperative NUTRITIONAL APPEARANCE: obese ORIENTATION/CONSCIOUSNESS: Yes awake HENMT: COMMON NORMALS: oropharynx normal Neck/C-Spine: COMMON NORMALS: no JVD Resp: COMMON NORMALS: normal respiratory effort and clear to auscultation bilaterally AUSCULTATION: clear to auscultation bilaterally Cardio: COMMON NORMALS: no JVD, regular rhythm, S1 normal heart sound present, S2 normal heart sound present and No murmurs present (Cardio) RHYTHM: regular rhythm HEART SOUNDS: S1 normal heart sound present and S2 normal heart sound present GI: COMMON NORMALS: Normal to inspection, nondistended, normoactive bowel sounds present, Soft to palpation and non-tender PALPATION: Yes Soft to palpation Extremity: COMMON NORMALS: no joint enlargement GENERAL: Yes edema Neuro: COMMON NORMALS: patient oriented x3 and moves all extremities SENSORIUM/ORIENTATION: Yes alert Skin: COMMON NORMALS: no rashes or lesions noted GENERAL SKIN EXAM: no rashes or lesions noted Urinary Catheter Management: Leone: Cath Placed During This Visit: yes, but has since been removed by the nurse Reason for Continuing Indwelling Catheter: Decision to DC Catheter Urinary Catheter Date of Insertion: 11/17/21 Urinary Catheter Time of Insertion: 18:15 Date Urinary Catheter Removed: 11/24/21 Time Urinary Catheter Discontinued: 07:39 Data : 11/26/21 02:50 11/26/21 02:50 A&P Assessment and plan (1) Fever: So far appears to be resolving. Follow-up blood culture, if continues without growth, and no recurrence of fever, continues to improve, possible discharge tomorrow. Consider surveillance culture with PCP in a month. I more suspect that this may be related to intermittent aspiration, although he seems to be monitoring and controlling his intake more, without additional episodes of aspiration recently which appears to coincide with subsiding of his fevers and improvement in oxygenation. Positive cultures from the tip of dialysis and central line catheters. Appears to have multidrug-resistant staph epidermidis growing in both. Empirically continues on linezolid and Levaquin. Status: Acute (2) Acute and chronic respiratory failure with hypoxia: He is weaning down on oxygen. Would perform home O2 evaluation tomorrow prior to discharge. Continue strict aspiration precautions. Continue antibiotic coverage with Levaquin, linezolid. Multifactorial including aspiration pneumonia, fluid overload on presentation, currently doing well on 4 L nasal cannula, may be able to continue to decrease. Discussed with him also consideration for sleep study after discharge. Status: Acute (3) Sinus bradycardia: Resolved Heart rates are more on the faster side, 90s-low 100s while sitting up. Monitor on telemetry. May consider repeat twelve-lead EKG. Status: Acute (4) Ileus: So far appears resolved, tolerating oral intake. Status: Acute (5) Poor venous access: Status: Acute (6) Constipation: Status: Acute (7) Acute renal failure: Improving Status: Acute (8) Hypercarbia: Status: Acute (9) Acute hyperkalemia: Resolved Status: Acute (10) Shock: Resolved Status: Acute (11) Acute exacerbation of CHF (congestive heart failure): Continue diuretics, monitor I&O. Status: Acute (12) Rhabdomyolysis: Improving Status: Acute Plan Morbid obesity Type 2 diabetes mellitus, A1c 8.8, continue low-dose sliding scale Attestations Medical Necessity Statement*: Continue admission for follow-up on blood culture after recurrent fevers, positive growth with multidrug-resistant or ganism on dialysis and central line catheter tips, weaning of oxygen support and preparation for discharge. Coding Level of Care Code Acute Habilitation Training Specialist for [facility] Diagnoses Fever R50.9 Acute and chronic respiratory failure with hypoxia J96.21 Sinus bradycardia R00.1 Ileus K56.7 Poor venous access I87.8 Constipation K59.00 Acute renal failure N17.9 Hypercarbia R06.89 Acute hyperkalemia E87.5 Shock R57.9 Acute exacerbation of CHF (congestive heart failure) I50.9 Rhabdomyolysis M62.82
[2021-11-26 16:52] LABS: Glucose Point of Care 304 mg/dL (70-110)
[2021-11-26] MEDS: enoxaparin 40 mg/0.4 mL Syringe SUBCUT (17:42)
[2021-11-26 20:46] LABS: Glucose Point of Care 214 mg/dL (70-110)
[2021-11-27] VITALS (10 sets, daily range): BP systolic 132–158; BP diastolic 73–80; PULSE 83–100; RESP 16–18; TEMP 37–37.2; O2SAT 93–97
[2021-11-27] MEDS: ipratropium-albuterol 3 mL Neb INHALATION ×3 (00:10→07:25)
[2021-11-27] MEDS: levoFLOXacin 750 mg Tablet PO (06:06)
[2021-11-27 06:42] LABS: Glucose Point of Care 222 mg/dL (70-110)
[2021-11-27] MEDS: metoprolol tartrate 25 mg Tablet 12.5 MG PO (09:36)
[2021-11-27] MEDS: gabapentin 300 mg Capsule PO (09:37)
[2021-11-27] MEDS: pantoprazole DR 40 mg Tablet PO (09:37)
[2021-11-27] MEDS: sertraline 50 mg Tablet PO (09:37)
[2021-11-27] MEDS: sennosides-docusate Tablet 2 TAB OG-TUBE (09:37)
[2021-11-27] MEDS: spironolactone 25 mg Tablet PO (09:37)
[2021-11-27] MEDS: insulin lispro 100 unit/1 mL SUBCUT ×2 (09:37→12:13)
[2021-11-27] MEDS: linezolid 600 mg Tablet PO (09:37)
[2021-11-27 11:22] LABS: Glucose Point of Care 333 mg/dL (70-110)
--- NOTE | 2021-11-27 13:50 | PM.DCS ---
Discharge Providers Date of Admission: 11/17/21 18:13 Date of Discharge: November 27, 2021 Attending Provider at Admission: Feng Artis MD Attending Provider at Discharge: Paramjit Lagos Diagnoses at Discharge Discharge Diagnosis (1) Fever: Status: Acute (2) Acute and chronic respiratory failure with hypoxia: Status: Acute (3) Sinus bradycardia: Status: Acute (4) Ileus: Status: Acute (5) Poor venous access: Status: Acute (6) Constipation: Status: Acute (7) Acute renal failure: Status: Acute (8) Hypercarbia: Status: Acute (9) Acute hyperkalemia: Status: Acute (10) Shock: Status: Acute (11) Acute exacerbation of CHF (congestive heart failure): Status: Acute (12) Rhabdomyolysis: Status: Acute Hospital Course Hospital Course Pleasant 61-year-old gentleman with history of SVT on sotalol, chronic low back pain for which among other things he had been taking celecoxib, lower extremity edema on Lasix with recently added metolazone, concurrent constipation, HTN, HLD, DM2, history of necrotizing fasciitis requiring debridement was admitted due to persistent hyperkalemia, acute kidney injury, rhabdomyolysis, metabolic acidosis, subsequently also with bradycardia. Complicated by acute hypercapnic respiratory failure, as well as acute metabolic encephalopathy and agitation, possibly secondary to uremia, hypercapnia. Required intubation and mechanical ventilatory support. Emergent hemodialysis. Responded well to dialysis. Also with noted recurrent fever spikes. CT of the chest with compressive atelectasis in the lung bases with air bronchograms, suspected pneumonia. Incidentally noted prominent fluid distended gallbladder otherwise normal in appearance. Rectosigmoid constipation. Other nonacute findings. Fevers were thought to be secondary to aspiration. Continued on empiric antibiotic coverage initially with vancomycin and Zosyn, subsequently adjusted to Primaxin and linezolid. Subsequently weaned off mechanical ventilatory support and extubated to 4 L nasal cannula. Continue to have fever spikes, and noted some aspiration with thin liquids. On assessment by speech therapy over several sessions found to be doing well with thin liquids, but needs to be cautious as he tends to take big gulps and even reports history of intermittent recurrent aspiration in the past. Additionally after removal of dialysis catheter and central line, both catheter tips were sent for culture, both growing multidrug-resistant Staph epidermidis. Due to this blood cultures were sent as well to exclude bacteremia, and so far blood cultures have been negative on preliminary study. He continued on empiric antibiotics. He otherwise has been doing well and continuing to wean down and yesterday off oxygen entirely. Fever spikes have resolved ever since he has had no further episodes of aspiration. However, please follow-up blood cultures. Please also arrange for surveillance culture in 1 month. Due to kidney injury he was not yet restarted on sotalol. Bradycardia eventually resolved with withholding the medication. He was started on low-dose metoprolol. He is asked to follow-up with cardiology for reassessment and resumption of sotalol. His kidney function has continued to improve. Hyperkalemia resolved. Creatinine is down to 1.1. Please avoid celecoxib or any other NSAIDs. Avoid any other nephrotoxic medications. Lisinopril for now is held, please reassess renal function, consider if this medication can be resumed in future. Continue to optimize diabetes control. A1c was 8.8. Please follow-up regarding hepatic steatosis. Rehabilitation has been considered at [facility] facility, however, he has worked very well with physical therapy, has been improving, and he is discharging home with home health instead to continue his recovery. Physical Exam Narrative: Family at bedside. Const: COMMON NORMALS: patient oriented x3 and alert GENERAL APPEARANCE: cooperative NUTRITIONAL APPEARANCE: obese ORIENTATION/CONSCIOUSNESS: Yes awake HENMT: COMMON NORMALS: oropharynx normal Neck/C-Spine: COMMON NORMALS: no JVD Resp: COMMON NORMALS: normal respiratory effort and clear to auscultation bilaterally AUSCULTATION: clear to auscultation bilaterally Cardio: COMMON NORMALS: no JVD, regular rhythm, S1 normal heart sound present, S2 normal heart sound present and No murmurs present (Cardio) RHYTHM: regular rhythm HEART SOUNDS: S1 normal heart sound present and S2 normal heart sound present GI: COMMON NORMALS: Normal to inspection, nondistended, normoactive bowel sounds present, Soft to palpation and non-tender PALPATION: Yes Soft to palpation Extremity: COMMON NORMALS: no joint enlargement GENERAL: Yes edema Neuro: COMMON NORMALS: patient oriented x3 and moves all extremities SENSORIUM/ORIENTATION: Yes alert Skin: COMMON NORMALS: no rashes or lesions noted GENERAL SKIN EXAM: no rashes or lesions noted Urinary Catheter Management: Leone: Cath Placed During This Visit: yes, but has since been removed by the nurse Reason for Continuing Indwelling Catheter: Decision to DC Catheter Urinary Catheter Date of Insertion: 11/17/21 Urinary Catheter Time of Insertion: 18:15 Date Urinary Catheter Removed: 11/24/21 Time Urinary Catheter Discontinued: 07:39 Discharge Data Studies Completed and Pending Completed Studies During Hospitalization Category Date Time Status CT chest abdomen pelvis [[place] [id number] Cat Scan 11/20/21 07:26 Completed ] Stat CT head wo con* [id number] Stat Cat Scan 11/20/21 07:26 Completed XR KUB portable [id number] Routine Exams 11/18/21 09:17 Completed XR KUB portable [id number] Routine Exams 11/19/21 06:00 Completed XR KUB portable [id number] Routine Exams 11/21/21 06:00 Completed XR chest 1V portable [id number] Routine Exams 11/18/21 07:00 Completed XR chest 1V portable [id number] Routine Exams 11/19/21 06:00 Completed XR chest 1V portable [id number] Routine Exams 11/20/21 07:00 Completed XR chest 1V portable [id number] Routine Exams 11/21/21 07:00 Completed XR chest 1V portable [id number] Stat Exams 11/17/21 19:25 [place] [id number] Routine Ultrasound 11/18/21 18:22 Completed CV. echo wo/w contrast [id number] Routine Ultrasound 11/18/21 18:22 Completed US gall bladder [id number] Routine Ultrasound 11/20/21 11:57 Completed US renal BI* [id number] Routine Ultrasound 11/18/21 18:22 Completed Pending at discharge Category Date Time Status Blood Culture Stat Lab 11/24/21 08:52 Results Radiology Impressions Renal Ultrasound 11/18/21 18:22 IMPRESSION: Normal renal ultrasound. Chest/Abdomen/Pelvis CT 11/20/21 07:26 IMPRESSION: 1. Small bilateral pleural effusions with compressive atelectasis in the lung bases with air bronchograms. Recommend Correlation for pneumonia. 2. Endotracheal tube with tip above the nikia. 3. Slightly prominent fluid distended gallbladder which is otherwise normal in appearance. This can be followed up with ultrasound. 4. No hydronephrosis in either kidney. Mild renal cortical atrophy. 5. Mild rectosigmoid constipation. 6. Leone catheter. 7. No fluid collections in the abdomen or pelvis 8. Fat-containing umbilical hernia. Head CT 11/20/21 07:26 IMPRESSION: Some images degraded by beam hardening artifact 1. No evidence of intracranial hemorrhage or mass effect. 2. Mild small vessel changes with moderate parenchymal volume loss. 3. Intracranial vascular calcification. 4. Fluid and secretions within the paranasal sinuses. 5. No acute intracranial findings. Gallbladder Ultrasound 11/20/21 11:57 IMPRESSION: 1. Gallbladder is normally distended with no stones or pericholecystic fluid. 2. Normal common bile duct. 3. Marked hepatic steatosis. KUB X-Ray 11/21/21 06:00 IMPRESSION: No acute abnormality. Normal bowel gas pattern. Chest X-Ray 11/21/21 07:00 IMPRESSION: Bibasilar patchy atelectasis. Laboratory Results WBC 7.7 10^3/uL (4.0-10.0) 11/26/21 02:50 RBC 3.46 10^6/uL (4.1-5.3) L 11/26/21 02:50 Hgb 10.5 g/dL (11.7-16.6) L 11/26/21 02:50 Hct 32.4 % (42.0-52.0) L 11/26/21 02:50 MCV 93.6 fl (80-94) 11/26/21 02:50 MCH 30.3 pg (28.0-34.0) 11/26/21 02:50 MCHC 32.4 g/dL (30.0-36.0) 11/26/21 02:50 RDW 13.2 % (12.1-15.1) 11/26/21 02:50 Plt Count 149 10^3/cmm (130-400) 11/26/21 02:50 MPV 10.8 fL (7.4-10.4) H 11/26/21 02:50 Neut % (Auto) 54.2 % 11/26/21 02:50 Lymph % (Auto) 16.0 % 11/26/21 02:50 [place] % (Auto) 24.2 % 11/26/21 02:50 Eos % (Auto) 3.0 % 11/26/21 02:50 Baso % (Auto) 0.5 % 11/26/21 02:50 Neut # (Auto) 4.20 10^3/uL (1.8-7.7) 11/26/21 02:50 Lymph # (Auto) 1.2 10^3/uL (0.8-4.8) 11/26/21 02:50 [place] # (Auto) 1.9 10^3/uL (0.2-0.9) H 11/26/21 02:50 Eos # (Auto) 0.2 10^3/uL (0.0-0.8) 11/26/21 02:50 Baso # (Auto) 0.0 10^3/uL (0.0-0.1) 11/26/21 02:50 Nucleated RBC % (auto) 0 % 11/26/21 02:50 Nucleated RBCs # 0.0 /100WBC 11/26/21 02:50 PT 13.60 SECONDS (12.1-14.9) 11/22/21 03:52 INR 1.01 (0.8-1.2) 11/22/21 03:52 Specimen Type Arterial 11/23/21 04:00 Sample Site Radial, right 11/23/21 04:00 ABG pH 7.47 (7.35-7.45) H 11/23/21 04:00 ABG pCO2 46.7 mmHg (35-45) H 11/23/21 04:00 ABG pO2 73.2 mmHg (80.0-100.0) L 11/23/21 04:00 ABG HCO3 34.1 mmol/L (22-26) H 11/23/21 04:00 ABG O2 Saturation 94.3 11/22/21 10:20 ABG Base Excess 9.2 mmol/L (-2.0-2.0) H 11/23/21 04:00 Jan Test Pos 11/23/21 04:00 A-a O2 Gradient 17.9 mmHg (5-10) H 11/22/21 10:20 Hematocrit 38.8 % (42-52) L 11/23/21 04:00 Hgb O2 Saturation 92.3 % (95-100) L 11/22/21 10:20 Carboxyhemoglobin 1.3 %THgb (0.4-20.1) 11/22/21 10:20 Methemoglobin 0.8 % (0.4-1.5) 11/22/21 10:20 Total Hemoglobin 13.2 g/dL (14-18) L 11/22/21 10:20 Sodium 137.0 mmol/L (131-143) 11/22/21 10:20 Potassium 4.7 mmol/L (3.5-5.0) 11/22/21 10:20 Glucose 294.0 mg/dL (70-115) H 11/22/21 10:20 Ionized Calcium 1.2 mmol/L (1.1-1.4) 11/22/21 10:20 O2 Delivery Device Nc 11/23/21 04:00 O2 Liters/Min 4.0 % 11/23/21 04:00 FiO2 36.0 % 11/22/21 10:20 Tidal Volume 0.55 11/21/21 04:22 PEEP 8.0 cmH20 11/21/21 04:22 [place] ID melo 11/23/21 04:00 Sodium 130 mmol/L (136-145) L 11/26/21 02:50 Potassium 3.9 mmol/L (3.5-5.1) 11/26/21 02:50 Chloride 89 mmol/L (98-107) L 11/26/21 02:50 Carbon Dioxide 30 mmol/L (22-29) H 11/26/21 02:50 Anion Gap 14.9 (5-19) 11/26/21 02:50 BUN 46 mg/dL (8-23) H 11/26/21 02:50 Creatinine 1.1 mg/dL (0.7-1.2) 11/26/21 02:50 GFR Calculation 68.3 mL/min (90-130) L 11/26/21 02:50 Glucose 241 mg/dL (65-115) H 11/26/21 02:50 POC Glucose 333 mg/dL (70-110) H 11/27/21 11:10 Estimat Average Glucose 206 11/17/21 19:00 Hemoglobin A1c 8.8 % (4.0-6.0) H 11/17/21 19:00 Calculated Osmolality 290 mOsm/kg (285-295) 11/26/21 02:50 Lactic Acid 0.8 mmol/L (0.5-2.2) 11/17/21 19:00 Lactate 1.1 mmol/L (0.5-2.2) 11/22/21 03:52 Uric Acid 8.3 mg/dL (3.4-7.0) H 11/17/21 19:05 Calcium 9.2 mg/dL (8.5-10.5) 11/26/21 02:50 Phosphorus 3.2 mg/dL (2.5-4.5) 11/23/21 03:29 Magnesium 2.2 mg/dL (1.7-2.3) 11/23/21 03:29 Iron 189 ug/dL (59-158) H 11/18/21 01:30 TIBC 338 mcg/dl 11/18/21 01:30 % Saturation 55.9 % (20-50) H 11/18/21 01:30 Unsat Iron Binding 149 ug/dL (112-347) 11/18/21 01:30 Ferritin 368 ng/mL (30-400) 11/18/21 01:30 Total Bilirubin 0.5 mg/dL (0.15-1.2) 11/26/21 02:50 GGT 49 U/L (8-61) 11/17/21 19:00 AST 35 U/L (0-40) 11/26/21 02:50 ALT 32 U/L (0-41) 11/26/21 02:50 Alkaline Phosphatase 55 IU/L (40-130) 11/26/21 02:50 Creatine Kinase 271 U/L (39-308) 11/25/21 04:23 Creatine Kinase Cancelled 11/25/21 04:23 Troponin T Baseline 33 ng/L (0-15) H 11/17/21 19:05 Troponin T 120 Minute 27.84 ng/L (0-15) H 11/17/21 21:32 Delta Troponin T -5.16 ABS# (0-10) L 11/17/21 21:32 Troponin T Hi Sens 6Hr 33.32 ng/L (0-15) H 11/18/21 01:30 Troponin T Hi Sens 6Hr Delta 0.32 ng/L (0-12) 11/18/21 01:30 C-Reactive Protein 68.0 mg/L (0.0-4.9) H 11/25/21 04:23 NT-Pro-B Natriuret Pep 775 pg/mL (0-125) H 11/25/21 04:23 NT-Pro-B Natriuret Pep Cancelled 11/25/21 04:23 Total Protein 7.1 g/dL (6.6-8.7) 11/26/21 02:50 Albumin 3.4 g/dL (3.5-5.2) L 11/26/21 02:50 Globulin 3.7 g/dL (1.3-4.6) 11/26/21 02:50 Amylase 60 U/L (28-100) 11/17/21 19:00 Lipase 23 U/L (13-60) 11/21/21 02:55 25-OH Vitamin D Total 29 ng/mL (30-100) L 11/18/21 01:30 Procalcitonin 0.26 ng/mL (0-0.5) 11/24/21 06:45 TSH 1.50 uIU/mL (0.27-4.20) 11/21/21 02:55 PTH Intact 48.2 pg/mL (15-65) 11/18/21 01:30 Calcium (PTH Intact) 9.5 mg/dL (8.5-10.5) 11/18/21 01:30 Urine Color Yellow (Yellow) 11/19/21 10:10 Urine Appearance Clear (CLEAR) 11/19/21 10:10 Urine pH 5 (5-7) 11/19/21 10:10 Ur Specific [place] 1.010 (1.005-1.030) 11/19/21 10:10 Urine Protein Neg (Negative) 11/19/21 10:10 Urine Glucose (UA) Norm (Normal) 11/19/21 10:10 Urine Ketones Negative (Negative) 11/19/21 10:10 Urine Blood 3+ (Negative) H 11/19/21 10:10 Urine Nitrate Negative (Negative) 11/19/21 10:10 Urine Bilirubin Neg (Negative) 11/19/21 10:10 Urine Urobilinogen Norm mg/dL (Negative) 11/19/21 10:10 Ur Leukocyte Esterase 2+ (Negative) H 11/19/21 10:10 Ur Microscopic Indic Cancelled 11/17/21 18:42 Urine RBC 5-10 /hpf (0-2) H 11/19/21 10:10 Urine WBC 5-10 /hpf (0-5) H 11/19/21 10:10 Ur Eosinophil Smear Not Reportable 11/17/21 18:42 Ur Squamous Epith Cells 0-4 /hpf (0-5) H 11/19/21 10:10 Amorphous Sediment Not Reportable 11/19/21 10:10 Urine Bacteria None /hpf (NONE) 11/19/21 10:10 Urine Eosinophils No eosinophils seen 11/17/21 18:42 Urine Osmolality 390 mOsm/kg (50-1200) 11/17/21 18:42 U Random Total Protein 4 mg/dL 11/19/21 10:10 Ur Random Sodium 38 mmol/L 11/17/21 18:42 Ur Random Potassium 42 mmol/L 11/17/21 18:42 Ur Random Chloride 15 mmol/L 11/17/21 18:42 Ur Random Urea Nitrogn 524 mg/dL 11/17/21 18:42 Ur Random Calcium 2.4 mg/dL 11/17/21 18:42 Urine Creatinine 62 mg/dL (39-259) 11/19/21 10:10 Nasal Influ A H1 2008 PCR Not detected (NOT DETECT) 11/20/21 20:45 RSV Nasal Swab Cancelled 11/20/21 20:45 RSV Nasal Swab Int Cntl Cancelled 11/20/21 20:45 Salicylates < 0.3 mg/dL (3-10) L 11/17/21 19:00 Urine Opiates Screen Positive ng/mL (Negative) H 11/17/21 18:42 Ur Barbiturates Screen Negative ng/mL (Negative) 11/17/21 18:42 Ur Phencyclidine Scrn Negative ng/mL (Negative) 11/17/21 18:42 Ur Amphetamines Screen Negative ng/mL (Negative) 11/17/21 18:42 U Benzodiazepines Scrn Negative ng/mL (Negative) 11/17/21 18:42 Urine Cocaine Screen Negative ng/mL (Negative) 11/17/21 18:42 U Marijuana (THC) Screen Negative ng/mL (Negative) 11/17/21 18:42 TIFFANY Screen Negative (NEGATIVE) 11/17/21 21:32 ANCA Screen Negative (NEGATIVE) 11/17/21 21:32 ANCA Titer Not Reportable 11/17/21 21:32 Anti-ds DNA IgG Ab <1 IU/mL 11/17/21 21:32 Adenovirus (PCR) Cancelled 11/20/21 20:45 Adenovirus (PCR) Not detected (NOT DETECT) 11/20/21 20:45 C. pneumoniae DNA (PCR) Not detected (NOT DETECT) 11/20/21 20:45 Coronavirus 229E (PCR) Not detected (NOT DETECT) 11/20/21 20:45 CMV IgG Ab <0.60 U/mL 11/20/21 15:40 CMV IgM Ab <30.00 AU/mL 11/20/21 15:40 Hepatitis A IgM Ab Non-reactive (Nonreactive) 11/20/21 15:40 Hep Bs Antigen Non-reactive (Nonreactive) 11/20/21 15:40 Hep Bs Antibody 3.5 (11.5-1000) L 11/17/21 19:05 Hep B Core IgM Ab Non-reactive (Nonreactive) 11/20/21 15:40 Hepatitis C Antibody Non-reactive (Nonreactive) 11/20/21 15:40 HIV 1&2 Ab & HIV 1 Ag Non-reactive (Non-Reactiv) 11/20/21 15:40 HIV 1&2 Antibody Non-reactive (Non-Reactiv) 11/20/21 15:40 Human Metapneumovir PCR Cancelled 11/20/21 20:45 Human Metapneumovir PCR Not detected (NOT DETECT) 11/20/21 20:45 Influenza A (RT-PCR) Cancelled 11/20/21 20:45 Influenza A (H1) PCR Cancelled 11/20/21 20:45 Influenza A (H1) PCR Not detected (NOT DETECT) 11/20/21 20:45 Influenza A (H3) PCR Cancelled 11/20/21 20:45 Influenza A (H3) PCR Not detected (NOT DETECT) 11/20/21 20:45 Influenza Type A Ag Negative (Negative) 11/19/21 10:10 Influenza Type A (PCR) Not detected (NOT DETECT) 11/20/21 20:45 Influenza Type B Ag Negative (Negative) 11/19/21 10:10 Influenza B (RT-PCR) Cancelled 11/20/21 20:45 Influenza Type B (PCR) Not detected (NOT DETECT) 11/20/21 20:45 M. pneumoniae (PCR) Not detected (NOT DETECT) 11/20/21 20:45 Parainfluenzae Type 1 Cancelled 11/20/21 20:45 Parainfluenza 1 (PCR) Not detected (NOT DETECT) 11/20/21 20:45 Parainfluenzae Type 2 Cancelled 11/20/21 20:45 Parainfluenza 2 (PCR) Not detected (NOT DETECT) 11/20/21 20:45 Parainfluenzae Type 3 Cancelled 11/20/21 20:45 Parainfluenza 3 (PCR) Not detected (NOT DETECT) 11/20/21 20:45 Parainfluenza 4 (PCR) Not detected (NOT DETECT) 11/20/21 20:45 A. galactomannan Ag EIA Not detected 11/20/21 15:40 A. galactomannan Ag Idx <0.50 11/20/21 15:40 RSV Ab Comment Cancelled 11/20/21 20:45 RSV Type A (PCR) Not detected (NOT DETECT) 11/20/21 20:45 RSV Type B (PCR) Not detected (NOT DETECT) 11/20/21 20:45 Rhinovirus (PCR) Cancelled 11/20/21 20:45 Entero/Rhino (PCR) Not detected (NOT DETECT) 11/20/21 20:45 SARS-CoV-2 (PCR) Not detected (NOT DETECT) 11/20/21 20:45 Anti-Streptolysin O Ab <50 IU/mL (<200) 11/17/21 21:32 Vitals Last Vital Signs Temp 98.6 F 11/27/21 07:02 Pulse 90 11/27/21 11:42 Resp 18 11/27/21 11:42 BP 132/77 11/27/21 11:42 Pulse Ox 95 11/27/21 11:42 O2 Del Method 11/27/21 11:42 O2 Flow Rate 2 11/27/21 08:00 FiO2 2 11/24/21 19:00 Discharge Plan Discharge Patient Disposition: Home Health Service Condition: Stable Prescriptions: New metoprolol tartrate 25 mg Tablet 12.5 mg PO BID@0900,2100 Qty: 90 0RF Continued hydrocodone-acetaminophen 10-325 mg Tablet 2 tab PO Q8H atorvastatin 20 mg Tablet 20 mg PO QPM polyethylene glycol 3350 17 gram Powder In Packet 17 g PO DAILY spironolactone 25 mg Tablet 25 mg PO DAILY tamsulosin 0.4 mg Capsule 0.4 mg PO DAILY triamcinolone acetonide 0.025 % Ointment 1 applic TOPICAL TID gabapentin 300 mg Capsule 300 mg PO QID montelukast 10 mg Tablet 10 mg PO DAILY glipizide 5 mg Tablet 5 mg PO BID omega-3 fatty acids Capsule 1,000 mg PO DAILY Changed furosemide 40 mg Tablet 40 mg PO DAILY PRN (Reason: Edema) Qty: 1 0RF Discontinued celecoxib 200 mg Capsule 200 mg PO BID sotalol 80 mg Tablet 80 mg PO BID diphenhydramine HCl 25 mg Tablet 25 mg PO DAILY lisinopril 10 mg Tablet 10 mg PO DAILY hydrochlorothiazide 12.5 mg Tablet 12.5 mg PO DAILY Discharge Orders: Discharge Order (Routine); Ordered 11/27/21 Ordered By: Paramjit Lagos Referrals: [facility] [Other] Alex Quintero MD [Physician] - 12/11/21 11:00 am (Sotalol Appointment will be with nurse practitioner Dulce Gamboa ) Maria Elena Olivas [Referring] - 11/30/21 2:30 pm Discharge Diet: As Directed Discharge Activity: Increase activity as tolerated and As per PT/OT instructions Patient Instructions: Heart Failure (ED), Rhabdomyolysis (ED), Aspiration Precautions (GEN), CHF Stoplight, Opioid Safety Activity Restrictions/Additional Instructions: Please follow-up with your doctor for resolution of aspiration pneumonia. Please maintain strict aspiration precautions as per speech therapy recommendations. Make sure to take small sips and bites. Take your time. Please discuss with your primary doctor regarding follow-up of blood culture which is still pending. Have your primary doctor draw surveillance culture in about a month. Please discuss with your primary doctor regarding acute kidney injury and transient need for dialysis. Please stop celecoxib. Avoid any medications that may cause kidney injury. Please also do not continue for now lisinopril until your kidney function is found to be stable. Discuss with your primary doctor if lisinopril may be safe to resume at a later time. Please work with your primary doctor to continue optimizing control of diabetes. A1c is 8.8. Discharge Attestations Time Spent in Discharge Care*: greater than 30 min Quality Metrics Clinical Quality Measures [ No reported AMI, CVA or VTE this stay] Coding Level of Care Code Acute Chg FW DC note Diagnoses Fever R50.9 Acute and chronic respiratory failure with hypoxia J96.21 Sinus bradycardia R00.1 Ileus K56.7 Poor venous access I87.8 Constipation K59.00 Acute renal failure N17.9 Hypercarbia R06.89 Acute hyperkalemia E87.5 Shock R57.9 Acute exacerbation of CHF (congestive heart failure) I50.9 Rhabdomyolysis M62.82
== END 2021-11-27 13:20 | disposition home health service (06) | DRG 208 ==
LOC: ICU 11-24 00:31 → MEDSURG 11-24 09:34
PROVIDERS: Internal Medicine Nephrology; Admitting Provider Family Medicine; Visit Provider Internal Medicine
DX: J96.22 Acute and chronic respiratory failure with hypercapnia (principal); G93.41 Metabolic encephalopathy; I50.33 Acute on chronic diastolic (congestive) heart failure; J69.0 Pneumonitis due to inhalation of food and vomit; Z68.42 Body mass index [BMI] 45.0-49.9, adult; N17.9 Acute kidney failure, unspecified; E87.1 Hypo-osmolality and hyponatremia; M62.82 Rhabdomyolysis; K56.7 Ileus, unspecified; E87.4 Mixed disorder of acid-base balance; J96.21 Acute and chronic respiratory failure with hypoxia; E87.5 Hyperkalemia; R00.1 Bradycardia, unspecified; E66.01 Morbid (severe) obesity due to excess calories; M54.50 Low back pain, unspecified; G89.29 Other chronic pain; K59.00 Constipation, unspecified; I11.0 Hypertensive heart disease with heart failure; E78.5 Hyperlipidemia, unspecified; E11.9 Type 2 diabetes mellitus without complications; Z79.891 Long term (current) use of opiate analgesic; Z87.891 Personal history of nicotine dependence; G47.33 Obstructive sleep apnea (adult) (pediatric); J44.9 Chronic obstructive pulmonary disease, unspecified; Z79.84 Long term (current) use of oral hypoglycemic drugs; K76.0 Fatty (change of) liver, not elsewhere classified; T50.1X5A Adverse effect of loop [high-ceiling] diuretics, initial encounter; T39.395A Adverse effect of other nonsteroidal anti-inflammatory drugs [NSAID], initial encounter; I45.10 Unspecified right bundle-branch block; I95.9 Hypotension, unspecified
CPT/HCPCS: 36415; 36416; 36600; 51702; 70450; 71045; 71250; 74018; 74176; 76705; 76770; 80048; 80051; 80053; 80074; 80306; 80307; 81001; 82150; 82306; 82310; 82330; 82340; 82436; 82550; 82570; 82575; 82728; 82803; 82805; 82962; 82977; 83036; 83540; 83550; 83605; 83690; 83735; 83880; 83935; 83970; 84100; 84133; 84145; 84156; 84300; 84443; 84484; 84540; 84550; 85025; 85610; 85999; 86036; 86038; 86060; 86140; 86225; 86706; 86803; 87040; 87070; 87075; 87077; 87086; 87186; 87205; 87305; 87340; 87486; 87581; 87633; 87635; 87641; 87804; 87806; 92523; 92526; 92610; 93005; 93970; 94002; 94003; 94640; 94660; 94664; 94799; 96372; 97110; 97116; 97162; 97165; 97530; 97535; A4570; C1751; C8929; C9113; J0461; J0743; J1265; J1630; J1644; J1650; J1815; J1940; J2020; J2250; J2270; J2543; J2704; J3010; J3370; J3490; J7050; P9047; Q3014; Q9956

== ENCOUNTER → 2021-12-11 10:43 | Outpatient (BNVA) | payer MEDICARE, SELFPAY | PROVIDERS: PCP Family Medicine; Visit Provider Nurse Practitioner Family | DX: R60.9 Edema, unspecified (principal) | CPT/HCPCS: 99213 ==